=== PATIENT | female | born 2000 | race Hispanic/Latino ===

== ENCOUNTER 2019-04-01 02:41 | Emergency (ER) | payer SELFPAY ==
[2019-04-01] MEDS ORDERED: ACETAMINOPHEN 500 MG TAB ONE (03:43)
[2019-04-01] MEDS ORDERED: IBUPROFEN 400 MG TAB ONE (03:43)
[2019-04-01] MEDS ORDERED: LIDOCAINE 1% MPF 2 ML AMPULE ONE (04:17)
--- NOTE | 2019-04-01 04:28 | EDPHYS ---
Physician Documentation [facility] Name: Mary Donovan Age: 18 yrs Sex: Female : 2000 Arrival Date: 04/01/2019 Time: 02:45 Bed 5 Private MD: ED Physician Ronald Rai HPI: 04/01 04:08 This 18 yrs old Female presents to ER via Ambulatory with complaints of Finger wa Pain. 04:08 The patient or guardian reports pain, swelling, tenderness. The complaints affect the wa right hand and right ring fingernail. Context: The problem was sustained at home, resulted from an unknown cause, c/o painful swelling and tenderness R lateral side of edge of nailbed. . Onset: The symptoms/episode began/occurred 2 day(s) ago. Modifying factors: The symptoms are alleviated by nothing, the symptoms are aggravated by movement, touch. Associated signs and symptoms: The patient has no apparent associated signs or symptoms. Severity of symptoms: At their worst the symptoms were moderate, in the emergency department the symptoms are unchanged. The patient has not experienced similar symptoms in the past. The patient has not recently seen a physician. Historical: - Allergies: 02:45 No Known Allergies; jb4 - Home Meds: 02:45 None [Active]; jb4 - PMHx: 02:45 None; jb4 - PSHx: 02:45 None; jb4 - Immunization history:: Adult Immunizations not up to date. - Social history:: Smoking status: Patient/guardian denies using tobacco, Patient/guardian denies using alcohol. - Ebola Screening: : No symptoms or risks identified at this time. - Family history:: not pertinent. - Hospitalizations: : No recent hospitalization is reported. ROS: 04:11 Constitutional: Negative for fever, chills, and weight loss, Eyes: Negative for injury, wa pain, redness, and discharge, ENT: Negative for injury, pain, and discharge, Neck: Negative for injury, pain, and swelling, Cardiovascular: Negative for chest pain, palpitations, and edema, Respiratory: Negative for shortness of breath, cough, wheezing, and pleuritic chest pain, Abdomen/GI: Negative for abdominal pain, nausea, vomiting, diarrhea, and constipation, Back: Negative for injury and pain, : Negative for injury, bleeding, discharge, and swelling, Neuro: Negative for headache, weakness, numbness, tingling, and seizure. 04:11 MS/extremity: Positive for pain, swelling, tenderness, of the right ring fingernail. 04:11 All other systems are negative. Exam: 04:11 Constitutional: This is a well developed, well nourished patient who is awake, alert, wa and in no acute distress. Head/Face: Normocephalic, atraumatic. Eyes: Pupils equal round and reactive to light, extra-ocular motions intact. Lids and lashes normal. Conjunctiva and sclera are non-icteric and not injected. Cornea within normal limits. Periorbital areas with no swelling, redness, or edema. ENT: Nares patent. No nasal discharge, no septal abnormalities noted. Tympanic membranes are normal and external auditory canals are clear. Oropharynx with no redness, swelling, or masses, exudates, or evidence of obstruction, uvula midline. Mucous membranes moist. Neck: Trachea midline, no thyromegaly or masses palpated, and no cervical lymphadenopathy. Supple, full range of motion without nuchal rigidity, or vertebral point tenderness. No Meningismus. Chest/axilla: Normal chest wall appearance and motion. Nontender with no deformity. No lesions are appreciated. Cardiovascular: Regular rate and rhythm with a normal S1 and S2. No gallops, murmurs, or rubs. Normal PMI, no JVD. No pulse deficits. Respiratory: Lungs have equal breath sounds bilaterally, clear to auscultation and percussion. No rales, rhonchi or wheezes noted. No increased work of breathing, no retractions or nasal flaring. Abdomen/GI: Soft, non-tender, with normal bowel sounds. No distension or tympany. No guarding or rebound. No evidence of tenderness throughout. Back: No spinal tenderness. No costovertebral tenderness. Full range of motion. Neuro: Awake and alert, GCS 15, oriented to person, place, time, and situation. Cranial nerves II-XII grossly intact. Motor strength 5/5 in all extremities. Sensory grossly intact. Cerebellar exam normal. Normal gait. Psych: Awake, alert, with orientation to person, place and time. Behavior, mood, and affect are within normal limits. 04:11 Skin: lesion(s), noted, and can be described as erythematous, tender, located on the right ring fingernail. 04:12 Musculoskeletal/extremity: Extremities: grossly normal except: noted in the right ring wa fingernail: pain, swelling, tenderness. Vital Signs: 02:45 BP 122 / 86; Pulse 79; Resp 16; Temp 97.6; Pulse Ox 99% on R/A; Weight 65.77 kg (R); jb4 Height 4 ft. 9 in. (144.78 cm) (R); Pain 10/10; 04:40 BP 105 / 72; Pulse 80; Resp 16; Pulse Ox 99% on R/A; jb4 02:45 Body Mass Index 31.38 (65.77 kg, 144.78 cm) 4 Procedures: 04:24 I \T\ D: Incision and drainage was performed for an abscess of the right right ring wa fingernail Prepped with Betadine, Anesthetized with 1 ml's 1% Lidocaine. Incised with #11 blade. Drained small amount purulent fluid. Dressing: sterile 4x4 gauze, the patient tolerated the procedure well. MDM: 03:15 Patient medically screened. nc 04:13 Differential diagnosis: paronychia. pain control. will attempt I\T\D. Data reviewed: nc vital signs, nurses notes. 04:25 Response to treatment: the patient's symptoms have markedly improved after treatment. nc 04/01 03:20 Order name: I\T\D Setup; Complete Time: 03:57 nc Administered Medications: 03:57 Drug: Motrin 400 mg Route: PO; [facility] 04:46 Follow up: Response: No adverse reaction; Pain is decreased [facility] 03:57 Drug: Tylenol 1000 mg Route: PO; jb4 04:46 Follow up: Response: No adverse reaction; Pain is decreased [facility] Disposition: 04/01/19 04:26 Discharged to Home. Impression: Right ring finger paronychia. - Condition is Stable. - Discharge Instructions: Paronychia, [id number]. - Prescriptions for Augmentin 875- 125 mg Oral Tablet - take 1 tablet by ORAL route every 12 hours for 5 days; 10 tablet. Ibuprofen 600 mg Oral Tablet - take 1 tablet by ORAL route every 8 hours As needed take with food; 20 tablet. - Work release form, Family Work Release, Medication Reconciliation Form, Thank You Letter, Antibiotic Education, Prescription Opioid Use form. - Follow up: Private Physician; When: 2 - 3 days; Reason: Re-evaluation by your physician. - Problem is new. - Symptoms have improved. Signatures: Tang Damian RN RN jb4 Ronald Rai MD MD wa Corrections: (The following items were deleted from the chart) 04:46 04:26 04/01/2019 04:26 Discharged to Home. Impression: Right ring finger paronychia. jb4 Condition is Stable. Forms are Medication Reconciliation Form, Thank You Letter, Antibiotic Education, Prescription Opioid Use. Follow up: Private Physician; When: 2 - 3 days; Reason: Re-evaluation by your physician. Problem is new. Symptoms have improved. wa
--- NOTE | 2019-04-01 04:28 | ER ---
Nurse's Notes [facility] Name: Mary Donovan Age: 18 yrs Sex: Female : 2000 Arrival Date: 04/01/2019 Time: 02:45 Bed 5 Private MD: Diagnosis: Right ring finger paronychia Presentation: 04/01 02:45 Presenting complaint: states: She has an ingrown finger nail that she noticed jb4 yesterday. 02:45 Transition of care: patient was not received from another setting of care. Onset of jb4 symptoms was March 31, 2019. Risk Assessment: Do you want to hurt yourself or someone else? Patient reports no desire to harm self or others. Initial Sepsis Screen: Does the patient meet any 2 criteria? No. Patient's initial sepsis screen is negative. Does the patient have a suspected source of infection? No. Patient's initial sepsis screen is negative. Care prior to arrival: None. 02:45 Method Of Arrival: Ambulatory jb4 02:45 Acuity: JOSE 5 jb4 Historical: - Allergies: 02:45 No Known Allergies; jb4 - Home Meds: 02:45 None [Active]; jb4 - PMHx: 02:45 None; jb4 - PSHx: 02:45 None; jb4 - Immunization history:: Adult Immunizations not up to date. - Social history:: Smoking status: Patient/guardian denies using tobacco, Patient/guardian denies using alcohol. - Ebola Screening: : No symptoms or risks identified at this time. - Family history:: not pertinent. - Hospitalizations: : No recent hospitalization is reported. Screenin:59 Abuse screen: Denies threats or abuse. Nutritional screening: No deficits noted. jb4 Tuberculosis screening: No symptoms or risk factors identified. Fall Risk None identified. Assessment: 02:59 General: Appears in no apparent distress. uncomfortable, Behavior is calm, cooperative, jb4 appropriate for age. Pain: Complains of pain in right ring fingernail Pain does not radiate. Pain currently is 10 out of 10 on a pain scale. Neuro: Level of Consciousness is awake, alert, obeys commands, Oriented to person, place, time, situation. Cardiovascular: Patient's skin is warm and dry. Respiratory: Airway is patent Respiratory effort is even, unlabored, Respiratory pattern is regular, symmetrical. GI: No deficits noted. No signs and/or symptoms were reported involving the gastrointestinal system. : No deficits noted. No signs and/or symptoms were reported regarding the genitourinary system. EENT: No deficits noted. No signs and/or symptoms were reported regarding the EENT system. Derm: Skin is intact, Skin is pink, warm \T\ dry. Musculoskeletal: Circulation, motion, and sensation intact. Range of motion: intact in all extremities. 04:40 Reassessment: Patient appears in no apparent distress at this time. Patient and/or jb4 family updated on plan of care and expected duration. Pain level reassessed. Patient is alert, oriented x 3, equal unlabored respirations, skin warm/dry/pink. Vital Signs: 02:45 BP 122 / 86; Pulse 79; Resp 16; Temp 97.6; Pulse Ox 99% on R/A; Weight 65.77 kg (R); jb4 Height 4 ft. 9 in. (144.78 cm) (R); Pain 10/10; 04:40 BP 105 / 72; Pulse 80; Resp 16; Pulse Ox 99% on R/A; jb4 02:45 Body Mass Index 31.38 (65.77 kg, 144.78 cm) jb4 ED Course: 02:45 Patient arrived in ED. ds1 02:45 Tang Damian, RN is Primary Nurse. jb4 02:45 Arm band placed on right wrist. jb4 02:56 Triage completed. jb4 02:59 Patient has correct armband on for positive identification. Bed in low position. Call jb4 light in reach. Side rails up X 1. Pulse ox on. NIBP on. 03:15 Ronald Rai MD is Attending Physician. wa 04:40 Assist provider with I \T\ D: of an abscess on right Ring finger. Set up I\T\D tray. jeffrey 4 Performed by Ronald Rai MD Dressing with Neosporin and. Patient did not have IV access during this emergency room visit. Administered Medications: 03:57 Drug: Motrin 400 mg Route: PO; jb4 04:46 Follow up: Response: No adverse reaction; Pain is decreased jb4 03:57 Drug: Tylenol 1000 mg Route: PO; jb4 04:46 Follow up: Response: No adverse reaction; Pain is decreased jb4 Outcome: 04:26 Discharge ordered by . jake 04:40 Discharged to home ambulatory, with family. jb4 04:40 Condition: stable 04:40 Discharge instructions given to patient, family, Instructed on discharge instructions, follow up and referral plans. medication usage, Demonstrated understanding of instructions, follow-up care, medications, Prescriptions given X 2. 04:46 Patient left the ED. jb4 Signatures: Kimberly Obregon ds1 Tang Damian RN RN jb4 Ronald Rai MD MD wa
[2019-04-01 05:00] VITALS: TEMP 97.6; O2SAT 99
[2019-04-01 05:02] VITALS: BP 105/72
== END 2019-04-01 04:46 | disposition home or self-care (01) ==
LOC: ER 02:41
PROC: 0J9J0ZZ Drainage of Right Hand Subcutaneous Tissue and Fascia, Open Approach (ICD-10-PCS; principal; 2019-04-01)
DX: L03.011 Cellulitis of right finger (principal)
CPT/HCPCS: 99284; J2001

== ENCOUNTER 2019-07-31 16:17 | Emergency (ER) | payer SELFPAY ==
--- OUTSIDE RECORDS SUMMARY | 2019-07-31 16:49 | XMS REPORT ---
:2000 [facility] Address [address] [place] [address] Dr. Huddleston [address] [place] [id number] Care Team Providers Name Role Phone Unavailable Unavailable Unavailable Problems This patient has no known problems. Allergies, Adverse Reactions, Alerts This patient has no known allergies or adverse reactions. Medications This patient has no known medications.
[2019-07-31] MEDS ORDERED: ONDANSETRON 4 MG/2 ML VIAL ONE (16:51)
[2019-07-31] MEDS ORDERED: NA CHLORIDE 0.9% 1,000 ML ONE (16:51)
[2019-07-31 17:32] LABS: Absolute Lymphocytes (CBC) 3.9 K/uL (0.7-4.9); Basophils % 0.5 % (0-1.3); Hematocrit 39.1 % (36.0-45.0); Lymphocytes % 32.9 % (15.3-44.8); MPV 7.4 fL (7.6-11.3); RBC Red Blood Cell Count 4.46 M/uL (3.86-4.86)
[2019-07-31 17:42] LABS: BUN Blood Urea Nitrogen 11 mg/dL (7-18); Bicarbonate 28 mmol/L (21-32); Glucose Level 123 mg/dL (74-106); Potassium 4.1 mmol/L (3.5-5.1); Sodium Level 138 mmol/L (136-145)
[2019-07-31] MEDS ORDERED: MECLIZINE HCL 12.5 MG TAB ONE (17:55)
--- NOTE | 2019-07-31 17:59 | EDPHYS ---
Physician Documentation [facility] Name: Mary Donovan Age: 18 yrs Sex: Female : 2000 Arrival Date: 07/31/2019 Time: 16:19 Bed 19 Private MD: ED Physician Kris Saini HPI: 07/31 16:48 This 18 yrs old Female presents to ER via Ambulatory with complaints of kb Dizziness, Nausea. 16:48 The patient or guardian reports flu symptoms, low-grade fever, myalgias. Onset: The kb symptoms/episode began/occurred 2 week(s) ago. Severity of symptoms: At their worst the symptoms were moderate, in the emergency department the symptoms are unchanged. Modifying factors: The symptoms are alleviated by nothing, the symptoms are aggravated by nothing. Associated signs and symptoms: Pertinent positives: fever, nausea. The patient has not experienced similar symptoms in the past. The patient has not recently seen a physician. Historical: - Allergies: 16:34 No Known Allergies; sv - PMHx: 16:34 None; sv - PSHx: 16:34 None; sv ROS: 16:47 ENT: Negative for injury, pain, and discharge, Neck: Negative for injury, pain, and kb swelling, Cardiovascular: Negative for chest pain, palpitations, and edema, Respiratory: Negative for shortness of breath, cough, wheezing, and pleuritic chest pain, Abdomen/GI: Negative for abdominal pain, nausea, vomiting, diarrhea, and constipation, Back: Negative for injury and pain, MS/Extremity: Negative for injury and deformity, Skin: Negative for injury, rash, and discoloration. 16:47 Constitutional: Positive for body aches, chills, fatigue, fever, malaise. 16:47 Neuro: Positive for dizziness, headache. Exam: 16:48 Constitutional: This is a well developed, well nourished patient who is awake, alert, kb and in no acute distress. Head/Face: Normocephalic, atraumatic. ENT: Nares patent. No nasal discharge, no septal abnormalities noted. Tympanic membranes are normal and external auditory canals are clear. Oropharynx with no redness, swelling, or masses, exudates, or evidence of obstruction, uvula midline. Mucous membranes moist. Neck: Trachea midline, no thyromegaly or masses palpated, and no cervical lymphadenopathy. Supple, full range of motion without nuchal rigidity, or vertebral point tenderness. No Meningismus. Chest/axilla: Normal chest wall appearance and motion. Nontender with no deformity. No lesions are appreciated. Cardiovascular: Regular rate and rhythm with a normal S1 and S2. No gallops, murmurs, or rubs. Normal PMI, no JVD. No pulse deficits. Respiratory: Lungs have equal breath sounds bilaterally, clear to auscultation and percussion. No rales, rhonchi or wheezes noted. No increased work of breathing, no retractions or nasal flaring. Abdomen/GI: Soft, non-tender, with normal bowel sounds. No distension or tympany. No guarding or rebound. No evidence of tenderness throughout. Skin: Warm, dry with normal turgor. Normal color with no rashes, no lesions, and no evidence of cellulitis. MS/ Extremity: Pulses equal, no cyanosis. Neurovascular intact. Full, normal range of motion. Neuro: Awake and alert, GCS 15, oriented to person, place, time, and situation. Cranial nerves II-XII grossly intact. Motor strength 5/5 in all extremities. Sensory grossly intact. Cerebellar exam normal. Normal gait. Vital Signs: 16:34 Pulse 93; Resp 16; Temp 98.5; Pulse Ox 100% ; Weight 63.5 kg; Height 5 ft. 0 in. sv (152.40 cm); 16:45 BP 104 / 64 RA Supine (auto/reg); Pulse 62 MON; sg 16:50 BP 111 / 86 RA Sitting (auto/reg); Pulse 70; sg 16:55 BP 114 / 75 Standing; Pulse 75 MON; sg 16:34 Body Mass Index 27.34 (63.50 kg, 152.40 cm) sv MDM: 16:35 Patient medically screened. kb 16:47 Data reviewed: vital signs, nurses notes. Data interpreted: Pulse oximetry: on room air kb is 100 %. Interpretation: normal. Counseling: I had a detailed discussion with the patient and/or guardian regarding: the historical points, exam findings, and any diagnostic results supporting the discharge/admit diagnosis, lab results, the need for outpatient follow up, a family practitioner, to return to the emergency department if symptoms worsen or persist or if there are any questions or concerns that arise at home. 07/31 16:45 Order name: CBC with Diff; Complete Time: 17:39 kb 07/31 16:45 Order name: Basic Metabolic Panel; Complete Time: 17:42 kb 07/31 16:48 Order name: [place] Screen Profile; Complete Time: 17:58 kb 07/31 17:34 Order name: Urine Dipstick--Ancillary (enter results) bd 07/31 17:34 Order name: Urine --Ancillary (enter results) bd 07/31 16:35 Order name: Orthostatics; Complete Time: 17:06 kb 07/31 16:35 Order name: Urine Dipstick-Ancillary (obtain specimen); Complete Time: 16:47 kb 07/31 16:45 Order name: IV Start; Complete Time: 16:47 kb Administered Medications: 17:26 Drug: NS 0.9% 1000 ml Route: IV; Rate: 1000 ml; Site: left antecubital; sg 17:26 Drug: Zofran 4 mg Route: IVP; Site: left antecubital; sg 17:55 Drug: Meclizine 25 mg Route: PO; sg Disposition: 08/01 16:32 Co-signature as Attending Physician, Kris Saini MD. rn Disposition: 07/31/19 17:59 Discharged to Home. Impression: Malaise and fatigue. - Condition is Stable. - Discharge Instructions: Fatigue, Weakness, [id number]. - Prescriptions for Meclizine 25 mg Oral Tablet - take 1 tablet by ORAL route every 8 hours As needed; 30 tablet. Zofran 4 mg Oral Tablet - take 1 tablet by ORAL route every 6 hours As needed; 20 tablet. - Medication Reconciliation Form, Thank You Letter, Antibiotic Education, Prescription Opioid Use form. - Work release form (07/31/19 18:41). ca1 - Follow up: Private Physician; When: 2 - 3 days; Reason: Recheck today's complaints, Continuance of care, Re-evaluation by your physician. Follow up: Emergency Department; When: As needed; Reason: Worsening of condition. Signatures: Dispatcher [employer] Nichelle Acevedo, Rossi Mg RN RN Wilbert Hurd RN RN sg Kris Saini MD MD rn Acob, Cindy MACDONALD ca1 Corrections: (The following items were deleted from the chart) 07/31 18:38 17:59 07/31/2019 17:59 Discharged to Home. Impression: Malaise and fatigue. Condition sg is Stable. Discharge Instructions: Fatigue, Weakness, [id number]. Prescriptions for Meclizine 25 mg Oral Tablet - take 1 tablet by ORAL route every 8 hours As needed; 30 tablet, Zofran 4 mg Oral Tablet - take 1 tablet by ORAL route every 6 hours As needed; 20 tablet. and Forms are Medication Reconciliation Form, Thank You Letter, Antibiotic Education, Prescription Opioid Use. Follow up: Private Physician; When: 2 - 3 days; Reason: Recheck today's complaints, Continuance of care, Re-evaluation by your physician. Follow up: Emergency Department; When: As needed; Reason: Worsening of condition. kb
--- NOTE | 2019-07-31 17:59 | ER ---
Nurse's Notes [facility] Name: Mary Donovan Age: 18 yrs Sex: Female : 2000 Arrival Date: 07/31/2019 Time: 16:19 Bed 19 Private MD: Diagnosis: Malaise and fatigue Presentation: 07/31 16:32 Presenting complaint: Patient states: headache, dizziness, nausea x 2 weeks. Transition sv of care: patient was not received from another setting of care. Onset of symptoms was July 2019. Care prior to arrival: None. 16:32 Method Of Arrival: Ambulatory sv 16:32 Acuity: JOSE 3 sv Historical: - Allergies: 16:34 No Known Allergies; sv - PMHx: 16:34 None; sv - PSHx: 16:34 None; sv Screenin:40 Abuse screen: Denies threats or abuse. Denies injuries from another. Nutritional sg screening: No deficits noted. Tuberculosis screening: No symptoms or risk factors identified. Never had TB. Fall Risk None identified. Assessment: 16:40 General: Appears in no apparent distress. well groomed, well developed, well nourished, sg Behavior is calm, cooperative, appropriate for age. Pain: Denies pain. Neuro: Level of Consciousness is awake, alert, obeys commands, Oriented to person, place, time, Manager Area are equal bilaterally Moves all extremities. Gait is steady, Speech is normal. Cardiovascular: Capillary refill is brisk in bilateral fingers Patient's skin is warm and dry. Chest pain is denied. Respiratory: Airway is patent Respiratory effort is even, unlabored, Respiratory pattern is regular, symmetrical. GI: Abdomen is round non-distended, Reports normal bowel habits, tolerance of fluids, tolerance of food. : No signs and/or symptoms were reported regarding the genitourinary system. EENT: No signs and/or symptoms were reported regarding the EENT system. Derm: Skin is pink, warm \T\ dry. Musculoskeletal: Circulation, motion, and sensation intact. Range of motion: intact in all extremities. Vital Signs: 16:34 Pulse 93; Resp 16; Temp 98.5; Pulse Ox 100% ; Weight 63.5 kg; Height 5 ft. 0 in. sv (152.40 cm); 16:45 BP 104 / 64 RA Supine (auto/reg); Pulse 62 MON; sg 16:50 BP 111 / 86 RA Sitting (auto/reg); Pulse 70; sg 16:55 BP 114 / 75 Standing; Pulse 75 MON; sg 16:34 Body Mass Index 27.34 (63.50 kg, 152.40 cm) sv ED Course: 16:19 Patient arrived in ED. rg4 16:25 Nichelle Lizama F[facility]-C [facility]. kb 16:25 Kris Saini MD is Attending Physician. kb 16:32 Arm band placed on. sv 16:33 Triage completed. sv 17:04 Wilbert Hurd, RN is Primary Nurse. sg Administered Medications: 17:26 Drug: NS 0.9% 1000 ml Route: IV; Rate: 1000 ml; Site: left antecubital; sg 17:26 Drug: Zofran 4 mg Route: IVP; Site: left antecubital; sg 17:55 Drug: Meclizine 25 mg Route: PO; sg Outcome: 17:59 Discharge ordered by MD. kb 18:38 Patient left the ED. sg Signatures: Nichelle Lizama FNP-C FNP-Ckb Verde, Stephanie, RN RN Wilbert Hurd, RN RN Montse Hedrick rg4 Corrections: (The following items were deleted from the chart) 17:27 17:26 NS 0.9% 1000 ml IV at 1000 ml in right antecubital sg sg
[2019-07-31 20:32] LABS: Urine Blood 1+ (NEG); Urine Glucose NEGATIVE (NEG); Urine Protein NEGATIVE (NEG); Urine Specific Gravity 1.025 (1.005-1.030); Urine pH 6.5 (5.0-7.0)
[2019-08-01 07:25] VITALS: TEMP 98.5; O2SAT 100
[2019-08-01 07:28] VITALS: BP 114/75
== END 2019-07-31 18:38 | disposition home or self-care (01) ==
LOC: ER 16:17
DX: R53.81 Other malaise (principal); R53.83 Other fatigue
CPT/HCPCS: 36415; 80048; 81003; 81025; 85025; 86308; 96374; 99283; J2405; J7030; J8597

== ENCOUNTER 2019-11-23 13:29 | Emergency (ER) | payer SELFPAY ==
--- OUTSIDE RECORDS SUMMARY | 2019-11-23 13:32 | XMS REPORT ---
:[address] [facility] t Address [address] [place] [address] Dr. H[address] [place] [id number] Care Team Providers Name Role Phone Unavailable Unavailable Unavailable Problems This patient has no known problems. Allergies, Adverse Reactions, Alerts This patient has no known allergies or adverse reactions. Medications This patient has no known medications. Procedures This patient has no known procedures. Results This patient has no known results.
--- NOTE | 2019-11-23 14:31 | ER ---
Nurse's Notes [facility] Name: Mary Donovan Age: 19 yrs Sex: Female : 2000 Arrival Date: 11/23/2019 Time: 13:32 Bed 20 Private MD: Diagnosis: Pain in left arm Presentation: 11/22 13:42 Chief complaint: Patient states: control implant to L upper arm that seems to be ss causing discomfort during the night x 1 month. Pt denies pain at this moment. Coronavirus screen: Proceed with normal triage. Patient denies a cough. Patient denies shortness of breath or difficulty breathing. Patient denies measured and/or subjective temperature greater than 100.4F prior to today's visit. Patient denies travel on a cruise ship or to a country the [facility] currently lists as an affected area. Patient denies contact with known and/or suspected case of COVID-19. Ebola Screen: Patient denies exposure to infectious person. Patient denies travel to an Ebola-affected area in the 21 days before illness onset. Initial Sepsis Screen: Does the patient meet any 2 criteria? No. Patient's initial sepsis screen is negative. Does the patient have a suspected source of infection? No. Patient's initial sepsis screen is negative. Risk Assessment: Do you want to hurt yourself or someone else? Patient reports no desire to harm self or others. Onset of symptoms was October 2019. 13:42 Method Of Arrival: Ambulatory ss 13:42 Acuity: JOSE 5 ss Historical: - Allergies: 13:45 No Known Allergies; ss - Home Meds: 13:45 None [Active]; ss - PMHx: 13:45 None; ss - PSHx: 13:45 None; ss - Immunization history:: Adult Immunizations up to date. - Social history:: Smoking status: Patient denies any tobacco usage or history of. Patient/guardian denies using alcohol, street drugs, The patient lives with family. - Family history:: not pertinent. Screenin:45 Abuse screen: Denies threats or abuse. Denies injuries from another. Nutritional ss screening: No deficits noted. Tuberculosis screening: Never had TB. Fall Risk None identified. Assessment: 13:45 General: Appears in no apparent distress. comfortable, Behavior is calm, cooperative, ss Denies fever, feeling ill, fatigue, chills. Pain: Complains of pain in left bicep Pain currently is 0 out of 10 on a pain scale. Is episodic. Pain: Aggravated by carrying objects. Seems to only hurt at night. Neuro: Level of Consciousness is awake, alert, obeys commands. Cardiovascular: Capillary refill < 3 seconds is brisk in bilateral fingers. Respiratory: Airway is patent Respiratory effort is even, unlabored, Respiratory pattern is regular, symmetrical. GI: No signs and/or symptoms were reported involving the gastrointestinal system. EENT: Oral mucosa is moist. Derm: Skin is intact, is healthy with good turgor, Skin is moist, Skin is pink, warm \T\ dry. normal. Musculoskeletal: Circulation, motion, and sensation intact. Range of motion: intact in all extremities, Swelling absent. Vital Signs: 13:42 BP 115 / 66; Pulse 86; Resp 16; Temp 98.1(TE); Pulse Ox 99% on R/A; Pain 0/10; ss ED Course: 13:32 Patient arrived in ED. bp1 13:44 Triage completed. ss 13:45 Arm band placed on right wrist. ss 13:45 Patient has correct armband on for positive identification. Bed in low position. Call ss light in reach. 13:53 Becki Aly MD is Attending Physician. ma2 14:30 Price Zeng MD is Referral Physician. ma2 14:45 Katerina Ta RN is Primary Nurse. 14:45 No provider procedures requiring assistance completed. Patient did not have IV access ss during this emergency room visit. Administered Medications: No medications were administered Outcome: 14:31 Discharge ordered by . ma2 14:45 Discharged to home ambulatory. ss 14:45 Condition: good 14:45 Discharge instructions given to patient, Instructed on discharge instructions, follow up and referral plans. Demonstrated understanding of instructions, follow-up care. 14:45 Patient left the ED. ss Signatures: Katerina Ta RN RN Becki Aly MD MD ma2 [place], Brittany bp1
--- NOTE | 2019-11-23 14:31 | EDPHYS ---
Physician Documentation [facility] Name: Mary Donoavn Age: 19 yrs Sex: Female : 2000 Arrival Date: 11/23/2019 Time: 13:32 Bed 20 Private MD: ED Physician Becki Aly HPI: 11/22 14:28 This 19 yrs old Female presents to ER via Ambulatory with complaints of ma2 control implant problem. 14:28 Onset: The symptoms/episode began/occurred gradually, 1 week(s) ago. Associated signs ma2 and symptoms: Pertinent negatives: nausea and vomiting, blood in stools, constipation, dysuria. pain i left upper arm for 2 years. Historical: - Allergies: 13:45 No Known Allergies; ss - Home Meds: 13:45 None [Active]; ss - PMHx: 13:45 None; ss - PSHx: 13:45 None; ss - Immunization history:: Adult Immunizations up to date. - Social history:: Smoking status: Patient denies any tobacco usage or history of. Patient/guardian denies using alcohol, street drugs, The patient lives with family. - Family history:: not pertinent. ROS: 14:28 Constitutional: Negative for fever, chills, and weight loss. ma2 14:28 All other systems are negative. Exam: 14:28 Constitutional: This is a well developed, well nourished patient who is awake, alert, ma2 and in no acute distress. Chest/axilla: Normal chest wall appearance and motion. Nontender with no deformity. No lesions are appreciated. Cardiovascular: Regular rate and rhythm with a normal S1 and S2. No gallops, murmurs, or rubs. Normal PMI, no JVD. No pulse deficits. Respiratory: Lungs have equal breath sounds bilaterally, clear to auscultation and percussion. No rales, rhonchi or wheezes noted. No increased work of breathing, no retractions or nasal flaring. Abdomen/GI: Soft, non-tender, with normal bowel sounds. No distension or tympany. No guarding or rebound. No evidence of tenderness throughout. Skin: Warm, dry with normal turgor. Normal color with no rashes, no lesions, and no evidence of cellulitis. MS/ Extremity: Pulses equal, no cyanosis. Neurovascular intact. Full, normal range of motion. Neuro: Awake and alert, GCS 15, oriented to person, place, time, and situation. Cranial nerves II-XII grossly intact. Motor strength 5/5 in all extremities. Sensory grossly intact. Cerebellar exam normal. Normal gait. Vital Signs: 13:42 BP 115 / 66; Pulse 86; Resp 16; Temp 98.1(TE); Pulse Ox 99% on R/A; Pain 0/10; ss MDM: 14:08 Patient medically screened. ma2 14:28 Differential diagnosis: local irritation vs abrasion vs contusion vs arm pain. Data ma2 reviewed: vital signs, nurses notes. Counseling: I had a detailed discussion with the patient and/or guardian regarding: the historical points, exam findings, and any diagnostic results supporting the discharge/admit diagnosis, the presence of at least one elevated blood pressure reading (>120/80) during this emergency department visit, the need for outpatient follow up. Response to treatment: the patient's symptoms have markedly improved after treatment. Administered Medications: No medications were administered Disposition: 11/23/19 14:31 Discharged to Home. Impression: Pain in left arm. - Condition is Stable. - Discharge Instructions: Musculoskeletal Pain. - Medication Reconciliation Form, Thank You Letter, Antibiotic Education, Prescription Opioid Use form. - Follow up: Private Physician; When: Tomorrow; Reason: Continuance of care. Follow up: Price Zeng MD; When: Tomorrow; Reason: Continuance of care. Signatures: Katerina Ta RN RN ss Alzahri, Mohammad, MD MD ma2 Corrections: (The following items were deleted from the chart) 14:45 14:31 11/23/2019 14:31 Discharged to Home. Impression: Pain in left arm. Condition is ss Stable. Forms are Medication Reconciliation Form, Thank You Letter, Antibiotic Education, Prescription Opioid Use. Follow up: Private Physician; When: Tomorrow; Reason: Continuance of care. Follow up: Price Zeng; When: Tomorrow; Reason: Continuance of care. ma2
== END 2019-11-23 14:45 | disposition home or self-care (01) ==
LOC: ER 13:29
DX: M79.622 Pain in left upper arm (principal)
CPT/HCPCS: 99281

== ENCOUNTER 2020-05-04 00:19 | Emergency (ER) | payer SELFPAY ==
[2020-05-04] MEDS ORDERED: ONDANSETRON 4 MG/2 ML VIAL ONE (00:54)
[2020-05-04] MEDS ORDERED: MORPHINE 2 MG/ML SYR ONE (00:54)
[2020-05-04] MEDS ORDERED: NA CHLORIDE 0.9% 1,000 ML ONE (00:54)
[2020-05-04 01:18] LABS: Absolute Lymphocytes (CBC) 3.8 K/uL (0.7-4.9); Basophils % 0.9 % (0-1.3); Hematocrit 37.1 % (36.0-45.0); Lymphocytes % 28.9 % (15.3-44.8); MPV 7.6 fL (7.6-11.3); RBC Red Blood Cell Count 4.25 M/uL (3.86-4.86)
[2020-05-04 01:33] LABS: ALT/SGPT 30 U/L (12-78); AST/SGOT 16 U/L (15-37); Albumin 3.7 g/dL (3.4-5.0); Alkaline Phosphatase 144 U/L (45-117); BUN Blood Urea Nitrogen 12 mg/dL (7-18); Bicarbonate 27 mmol/L (21-32); Bilirubin Direct < 0.1 mg/dL (0-0.2); Bilirubin Total 0.4 mg/dL (0.2-1.0); Glucose Level 107 mg/dL (74-106); Lipase 91 U/L (73-393); Potassium 3.5 mmol/L (3.5-5.1); Protein, Total 7.5 g/dL (6.4-8.2); Sodium Level 140 mmol/L (136-145)
[2020-05-04] MEDS ORDERED: CIPROFLOXACIN 400mg IV 400 MG/200 ML BAG IV ONE (01:44)
[2020-05-04] MEDS ORDERED: METRONIDAZOLE 500mg IVPB 500 MG/100 ML BAG IV ONE (01:44)
[2020-05-04 02:54] LABS: Urine Blood 3+ (NEG); Urine Glucose NEGATIVE (NEG); Urine Protein TRACE (NEG); Urine Specific Gravity 1.025 (1.005-1.030)
[2020-05-04] MEDS ORDERED: MUPIROCIN 2% OINT 22GM TUBE TOP ONE (03:34)
--- NOTE | 2020-05-04 03:37 | ER ---
Nurse's Notes [facility] Name: Mary Donovan Age: 19 yrs Sex: Female : 2000 Arrival Date: 05/04/2020 Time: 00:22 Bed 15 Private MD: Diagnosis: Abdominal tenderness-umbilical abscess, bleeding Presentation: 05/04 00:35 Chief complaint: Patient states: Abdominal pain x 3 days, bleeding from umbilicus that lp1 began 3 hours ago with severe pain; denies fever. Coronavirus screen: Client denies travel out of the [place] in the last 14 days. At this time, the client does not indicate any symptoms associated with coronavirus-19. Ebola Screen: No symptoms or risks identified at this time. Initial Sepsis Screen: Does the patient meet any 2 criteria? No. Patient's initial sepsis screen is negative. Does the patient have a suspected source of infection? No. Patient's initial sepsis screen is negative. Risk Assessment: Do you want to hurt yourself or someone else? Patient reports no desire to harm self or others. Onset of symptoms was May 04, 2020. 00:35 Method Of Arrival: Ambulatory lp1 00:35 Acuity: JOSE 3 lp1 Triage Assessment: 00:35 General: Appears uncomfortable, Behavior is appropriate for age. Pain: Complains of lp1 pain in umbilical area Pain currently is 10 out of 10 on a pain scale. Neuro: Level of Consciousness is awake, alert, obeys commands. GI: Abdomen is round Abdomen is tender to palpation in umbilical area Reports bleeding from umbilicus. Derm: Skin is pink, warm \T\ dry. 00:35 Respiratory: Respiratory effort is even, unlabored. Musculoskeletal: No deficits noted. 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 - Social history:: Smoking status: Patient denies any tobacco usage or history of. - Family history:: not pertinent. Screenin:38 Abuse screen: Denies threats or abuse. Denies injuries from another. Nutritional lp1 screening: No deficits noted. Tuberculosis screening: No symptoms or risk factors identified. Fall Risk None identified. Assessment: 00:40 General: Appears in no apparent distress. uncomfortable, Behavior is calm, cooperative, jb4 appropriate for age. Pain: Complains of pain in abdomen Pain does not radiate. Pain currently is 10 out of 10 on a pain scale. Neuro: Level of Consciousness is awake, alert, obeys commands, Oriented to person, place, time, situation. Cardiovascular: Patient's skin is warm and dry. Respiratory: Airway is patent Respiratory effort is even, unlabored, Respiratory pattern is regular, symmetrical. GI: Abdomen is non-distended, obese, Bowel sounds present X 4 quads. Abd is soft X 4 quads Abd is non tender in right upper quadrant and left upper quadrant Abdomen is tender to palpation in right lower quadrant and left lower quadrant. : No signs and/or symptoms were reported regarding the genitourinary system. EENT: No signs and/or symptoms were reported regarding the EENT system. Derm: Skin is intact, Skin is pink, warm \T\ dry. Musculoskeletal: Circulation, motion, and sensation intact. Range of motion: intact in all extremities. 02:07 Reassessment: Patient appears in no apparent distress at this time. Patient and/or jb4 family updated on plan of care and expected duration. Pain level reassessed. Patient is alert, oriented x 3, equal unlabored respirations, skin warm/dry/pink. Patient states feeling better. 03:30 Reassessment: Patient appears in no apparent distress at this time. Patient and/or jb4 family updated on plan of care and expected duration. Pain level reassessed. Patient is alert, oriented x 3, equal unlabored respirations, skin warm/dry/pink. Vital Signs: 00:35 BP 126 / 91; Pulse 85; Resp 16; Temp 98.9(TE); Pulse Ox 99% on R/A; Weight 83.91 kg lp1 (R); Height 5 ft. 1 in. (154.94 cm); Pain 10/10; 02:00 BP 104 / 68; Pulse 64; Resp 16; Pulse Ox 99% on R/A; jb4 03:30 BP 96 / 62; Pulse 72; Resp 16; Pulse Ox 99% on R/A; jb4 00:35 Body Mass Index 34.96 (83.91 kg, 154.94 cm) lp1 ED Course: 00:22 Patient arrived in ED. ag3 00:29 Chepe Cook MD is Attending Physician. jessica 00:38 Triage completed. lp1 00:38 Arm band placed on. lp1 00:40 Patient has correct armband on for positive identification. lp1 00:50 Inserted saline lock: 20 gauge in left antecubital area, using aseptic technique. Blood lp1 collected. 00:50 Initial lab(s) drawn, by me, sent to lab. lp1 01:17 Tang Damian, RN is Primary Nurse. jb4 03:18 CT Abd/Pelvis - IV Contrast Only In Process Unspecified. EDMS 03:36 Tang Conrad MD is Referral Physician. jessica 03:59 No provider procedures requiring assistance completed. jb4 04:02 IV discontinued, intact, bleeding controlled, No redness/swelling at site. Pressure jb4 dressing applied. Administered Medications: 01:00 Drug: NS 0.9% 1000 ml Route: IV; Rate: 1 bolus; Site: left antecubital; lp1 02:14 Follow up: Response: No adverse reaction; IV Status: Completed infusion; IV Intake: jb4 1000ml 01:00 Drug: morphine 2 mg Route: IVP; Site: left antecubital; lp1 01:30 Follow up: Response: No adverse reaction; Pain is decreased; RASS: Alert and Calm (0) jb4 01:00 Drug: Zofran (Ondansetron) 4 mg Route: IVP; Site: left antecubital; lp1 01:30 Follow up: Response: No adverse reaction jb4 01:30 Drug: Flagyl 500 mg Volume: 100 ml; Route: IVPB; Rate: 200 ml/hr; Infused Over: 30 jb4 mins; Site: left antecubital; 02:00 Follow up: Response: No adverse reaction; IV Status: Completed infusion; IV Intake: jb4 100ml 02:14 Drug: Cipro 400 mg Volume: 200 ml; Route: IVPB; Infused Over: 60 mins; Site: left jb4 antecubital; 04:02 Follow up: Response: No adverse reaction; IV Status: Completed infusion jb4 03:30 Drug: Bactroban Ointment 2 % 1 application Route: Topical; Site: abdomen; jb4 03:54 Drug: [place] (7.5 mg-325 mg) 1 tabs Route: PO; jb4 03:59 Follow up: Response: No adverse reaction jb4 03:54 Drug: Bactrim (160 mg-800 mg (DS) 1 tablet Route: PO; jb4 03:59 Follow up: Response: No adverse reaction jb4 Intake: 02:00 IV: 100ml; Total: 100ml. jb4 02:14 IV: 1000ml; Total: 1100ml. jb4 Outcome: 03:36 Discharge ordered by . jessica 03:59 Discharged to home ambulatory. jb4 03:59 Condition: stable 03:59 Discharge instructions given to patient, Instructed on discharge instructions, follow up and referral plans. medication usage, Demonstrated understanding of instructions, follow-up care, medications, Prescriptions given X 4. 04:02 Patient left the ED. jb4 Signatures: Dispatcher [employer] EDMS Chepe Cook MD MD cha Pena, Laura, RN RN lp1 Tang Damian RN RN jb4 Claudette Edmonds ag3 Corrections: (The following items were deleted from the chart) 02:43 00:40 GI: Abdomen is non-distended, obese, jb4 jb4
--- NOTE | 2020-05-04 03:37 | EDPHYS ---
Physician Documentation [facility] Name: Mary Donovan Age: 19 yrs Sex: Female : 2000 Arrival Date: 05/04/2020 Time: 00:22 Bed 15 Private MD: ED Physician Chepe Cook HPI: 05/04 00:36 This 19 yrs old Female presents to ER via Unassigned with complaints of jessica Abdominal Pain. 00:36 The patient presents with abdominal pain in the periumbilical area. Onset: The jessica symptoms/episode began/occurred 2 day(s) ago. The symptoms do not radiate. Associated signs and symptoms: Pertinent positives: blood and dc from umbilicus. Modifying factors: The symptoms are alleviated by nothing, the symptoms are aggravated by movement, pressure. 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 - Social history:: Smoking status: Patient denies any tobacco usage or history of. - Family history:: not pertinent. ROS: 00:38 Constitutional: Negative for fever, chills, and weight loss, Eyes: Negative for injury, jessica pain, redness, and discharge, ENT: Negative for injury, pain, and discharge, Neck: Negative for injury, pain, and swelling, Cardiovascular: Negative for chest pain, palpitations, and edema, Respiratory: Negative for shortness of breath, cough, wheezing, and pleuritic chest pain, Back: Negative for injury and pain, : Negative for injury, bleeding, discharge, and swelling, MS/Extremity: Negative for injury and deformity, Skin: Negative for injury, rash, and discoloration, Neuro: Negative for headache, weakness, numbness, tingling, and seizure, Psych: Negative for depression, anxiety, suicide ideation, homicidal ideation, and hallucinations, Allergy/Immunology: Negative for hives, rash, and allergies, Endocrine: Negative for neck swelling, polydipsia, polyuria, polyphagia, and marked weight changes, Hematologic/Lymphatic: Negative for swollen nodes, abnormal bleeding, and unusual bruising. 00:38 Abdomen/GI: Positive for abdominal pain, of the umbilical area. Exam: 00:38 Constitutional: This is a well developed, well nourished patient who is awake, alert, jessica and in no acute distress. Head/Face: Normocephalic, atraumatic. Eyes: Pupils equal round and reactive to light, extra-ocular motions intact. Lids and lashes normal. Conjunctiva and sclera are non-icteric and not injected. Cornea within normal limits. Periorbital areas with no swelling, redness, or edema. ENT: Nares patent. No nasal discharge, no septal abnormalities noted. Tympanic membranes are normal and external auditory canals are clear. Oropharynx with no redness, swelling, or masses, exudates, or evidence of obstruction, uvula midline. Mucous membranes moist. Neck: Trachea midline, no thyromegaly or masses palpated, and no cervical lymphadenopathy. Supple, full range of motion without nuchal rigidity, or vertebral point tenderness. No Meningismus. Chest/axilla: Normal chest wall appearance and motion. Nontender with no deformity. No lesions are appreciated. Cardiovascular: Regular rate and rhythm with a normal S1 and S2. No gallops, murmurs, or rubs. Normal PMI, no JVD. No pulse deficits. Respiratory: Lungs have equal breath sounds bilaterally, clear to auscultation and percussion. No rales, rhonchi or wheezes noted. No increased work of breathing, no retractions or nasal flaring. Back: No spinal tenderness. No costovertebral tenderness. Full range of motion. Female : Normal external genitalia. Skin: Warm, dry with normal turgor. Normal color with no rashes, no lesions, and no evidence of cellulitis. MS/ Extremity: Pulses equal, no cyanosis. Neurovascular intact. Full, normal range of motion. Neuro: Awake and alert, GCS 15, oriented to person, place, time, and situation. Cranial nerves II-XII grossly intact. Motor strength 5/5 in all extremities. Sensory grossly intact. Cerebellar exam normal. Normal gait. 00:38 Abdomen/GI: Inspection: abdomen appears normal, Bowel sounds: normal, Palpation: mild abdominal tenderness, in the umbilical area, Liver: no appreciated palpable abnormalities, Hernia: not appreciated. Vital Signs: 00:35 BP 126 / 91; Pulse 85; Resp 16; Temp 98.9(TE); Pulse Ox 99% on R/A; Weight 83.91 kg lp1 (R); Height 5 ft. 1 in. (154.94 cm); Pain 10; 02:00 BP 104 / 68; Pulse 64; Resp 16; Pulse Ox 99% on R/A; jb4 03:30 BP 96 / 62; Pulse 72; Resp 16; Pulse Ox 99% on R/A; jb4 00:35 Body Mass Index 34.96 (83.91 kg, 154.94 cm) lp1 MDM: 00:29 Patient medically screened. jessica 00:39 Differential diagnosis: appendicitis, bowel obstruction, cholecystitis, Cholelithiasis, jessica pancreatitis, Peritonitis, urinary tract infection. Data reviewed: vital signs, nurses notes, lab test result(s), radiologic studies, CT scan. Data interpreted: ekg monitor tech: rate is 85 beats/min, rhythm is regular. Counseling: I had a detailed discussion with the patient and/or guardian regarding: the historical points, exam findings, and any diagnostic results supporting the discharge/admit diagnosis, lab results, radiology results. 05/04 00:35 Order name: Basic Metabolic Panel; Complete Time: :57 [facility] 05/04 00:35 Order name: CBC with Diff; Complete Time: :57 [facility] 05/04 00:35 Order name: Hepatic Function; Complete Time: :57 [facility] 05/04 00:35 Order name: Lipase; Complete Time: :57 [facility] 05/04 02:48 Order name: Urine Dipstick--Ancillary (enter results); Complete Time: 03:07 [facility] 05/04 02:48 Order name: Urine --Ancillary (enter results); Complete Time: 03:07 [facility] 05/04 00:35 Order name: CT Abd/Pelvis - IV Contrast Only [facility] 05/04 00:35 Order name: IV Saline Lock; Complete Time: 01:02 [facility] 05/04 00:35 Order name: Labs collected and sent; Complete Time: 01:02 [facility] 05/04 00:35 Order name: Urine Dipstick-Ancillary (obtain specimen); Complete Time: 02:40 [facility] 05/04 00:35 Order name: Urine Test (obtain specimen); Complete Time: 02:40 [facility] Administered Medications: 01:00 Drug: NS 0.9% 1000 ml Route: IV; Rate: 1 bolus; Site: left antecubital; lp1 02:14 Follow up: Response: No adverse reaction; IV Status: Completed infusion; IV Intake: jb4 1000ml 01:00 Drug: morphine 2 mg Route: IVP; Site: left antecubital; lp1 01:30 Follow up: Response: No adverse reaction; Pain is decreased; RASS: Alert and Calm (0) jb4 01:00 Drug: Zofran (Ondansetron) 4 mg Route: IVP; Site: left antecubital; lp1 01:30 Follow up: Response: No adverse reaction jb4 01:30 Drug: Flagyl 500 mg Volume: 100 ml; Route: IVPB; Rate: 200 ml/hr; Infused Over: 30 jb4 mins; Site: left antecubital; 02:00 Follow up: Response: No adverse reaction; IV Status: Completed infusion; IV Intake: jb4 100ml 02:14 Drug: Cipro 400 mg Volume: 200 ml; Route: IVPB; Infused Over: 60 mins; Site: left jb4 antecubital; 04:02 Follow up: Response: No adverse reaction; IV Status: Completed infusion jb4 03:30 Drug: Bactroban Ointment 2 % 1 application Route: Topical; Site: abdomen; jb4 03:54 Drug: [place] (7.5 mg-325 mg) 1 tabs Route: PO; jb4 03:59 Follow up: Response: No adverse reaction jb4 03:54 Drug: Bactrim (160 mg-800 mg (DS) 1 tablet Route: PO; jb4 03:59 Follow up: Response: No adverse reaction jb Disposition: 05/04/20 03:36 Discharged to Home. Impression: Abdominal tenderness - umbilical abscess, bleeding. - Condition is Stable. - Discharge Instructions: Abdominal Pain, Adult, Abdominal Pain, Adult, [id number], Umbilical Granuloma. - Prescriptions for Bactroban 2 % Topical Ointment - Apply to affected area 1 application by TOPICAL route every 12 hours; 15 gram. Tylenol- Codeine #3 300-30 mg Oral Tablet - take 2 tablets by ORAL route every 6 hours As needed; 20 tablet. Cipro 500 mg Oral Tablet - take 1 tablet by ORAL route every 12 hours for 7 days; 14 tablet. Bactrim DS 800- 160 mg Oral Tablet - take 1 tablet by ORAL route every 12 hours for 10 days; 20 tablet. - Medication Reconciliation Form, Thank You Letter, Antibiotic Education, Prescription Opioid Use form. - Follow up: Private Physician; When: 2 - 3 days; Reason: Recheck today's complaints, Continuance of care, Re-evaluation by your physician. Follow up: Tang Conrad; When: 2 - 3 days; Reason: Recheck today's complaints, Re-evaluation by your physician. - Problem is new. - Symptoms have improved. Signatures: Dispatcher [employer] EDChepe Jesus MD MD cha Pena, Laura, RN RN lp1 Tang Damian RN RN jb4 Corrections: (The following items were deleted from the chart) 04:02 03:36 05/04/2020 03:36 Discharged to Home. Impression: Abdominal tenderness - umbilical jb4 abscess, bleeding. Condition is Stable. Discharge Instructions: Abdominal Pain, Adult, Abdominal Pain, Adult, [id number], Umbilical Granuloma. Prescriptions for Bactroban 2 % Topical Ointment - Apply to affected area 1 application by TOPICAL route every 12 hours; 15 gram, Tylenol-Codeine #3 300-30 mg Oral Tablet - take 2 tablets by ORAL route every 6 hours As needed; 20 tablet, Cipro 500 mg Oral Tablet - take 1 tablet by ORAL route every 12 hours for 7 days; 14 tablet, Bactrim DS 800-160 mg Oral Tablet - take 1 tablet by ORAL route every 12 hours for 10 days; 20 tablet. and Forms are Medication Reconciliation Form, Thank You Letter, Antibiotic Education, Prescription Opioid Use. Follow up: Private Physician; When: 2 - 3 days; Reason: Recheck today's complaints, Continuance of care, Re-evaluation by your physician. Follow up: Tang Conrad; When: 2 - 3 days; Reason: Recheck today's complaints, Re-evaluation by your physician. Problem is new. Symptoms have improved. jessica
[2020-05-04] MEDS ORDERED: HYDROCODONE/APAP 7.5/325 MG TAB ONE (03:55)
[2020-05-04] MEDS ORDERED: SMZ./TMP. 800/160 MG TABLET ONE (03:55)
[2020-05-04 04:10] VITALS: TEMP 98.9; O2SAT 99
[2020-05-04 04:13] VITALS: BP 96/62
--- NOTE | 2020-05-05 10:18 | RAD REPORT ---
EXAM DESCRIPTION: CT - Abdomen Pelvis W Contrast - 05/04/2020 3:18 am CLINICAL HISTORY: The patient is 19 years old and is Female; ABD PAIN TECHNIQUE: Axial computed tomography images of the abdomen and pelvis with intravenous contrast. S agittal and coronal reformatted images were created and reviewed. This CT exam was performed using one or more of the following dose reduction techniques: automated exposure control, adjustment of t he mA and/or kV according to patient size, and/or use of iterative reconstruction technique. COMPARISON: No relevant prior studies available. FINDINGS: LUNG BASES: Unremarkable. No mass. No consolidation. ABDOMEN: LIVER: Unremarkable. No mass. GALLBLADDER AND BILE DUCTS: The gallbladder is contracted. PANCREAS: No ductal dilation. No mass. SPLEEN: Unremarkable. ADRENALS: Unremarkable. No mass. KIDNEYS AND URETERS: Unremarkable. The kidneys enhance symmetrically. No obstructing renal or ur eteral calculus is seen. No hydronephrosis or hydroureter. No perinephric fluid or stranding. STOMACH AND BOWEL: The stomach is distended with food contents. The small bowel is relatively no rmal in caliber. A moderate amount stool is present throughout the colon. There is no mucosal thicken ing or evidence of bowel obstruction. PELVIS: APPENDIX: The appendix is normal in caliber without surrounding inflammation. BLADDER: Unremarkable. No mass. REPRODUCTIVE: A 0.8 cm dominant left ovarian follicular cyst is present. No follow-up imaging is recommended. The uterus and right ovary are normal. ABDOMEN and PELVIS: INTRAPERITONEAL SPACE: Unremarkable. No free air. No significant fluid collection. BONES/JOINTS: No acute fracture. SOFT TISSUES: The soft tissues are normal. VASCULATURE: Unremarkable. No abdominal aortic aneurysm. LYMPH NODES: Unremarkable. No enlarged lymph nodes. IMPRESSION: No acute findings on this contrasted CT of the abdomen and pelvis to explain the patient 's symptoms. Electronically signed by: Mony De Santiago MD 05/04/2020 3:25 AM CDT Due to temporary technical issues with the PACS/Fluency reporting system, reports are being signed by the in house radiologist without review as a courtesy to ensure prompt reporting. The interpreting r adiologist is fully responsible for the content of the report.
== END 2020-05-04 04:02 | disposition home or self-care (01) ==
LOC: ER 00:19
DX: L02.216 Cutaneous abscess of umbilicus (principal)
CPT/HCPCS: 36415; 74177; 80048; 80076; 81003; 81025; 83690; 85025; 96361; 96365; 96367; 96375; 99284; J0744; J2270; J2405; J7030; Q9967

== ENCOUNTER 2020-06-04 19:14 | Emergency (ER) | payer SELFPAY ==
--- OUTSIDE RECORDS SUMMARY | 2020-06-04 19:16 | XMS REPORT | Summary of Care ---
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 Lump on armpit Encounter Details Date Type Department Care Team Description 05/05/2020 Office Visit [facility]- AkinsipeMirzaIsabela Pre gnancy examination EVELINA Masters or test, negative [address] [place] [address] result (Primary Dx) [place], [place] [id number] Allergies No Known Allergiesdocumented as of this encounter (statuses as of 05/05/2020) Medications No known medicationsdocumented as of this encounter (statuses as of 05/05/2020) Active Problems Problem Noted Date Nexplanon removal 12/31/2019 Chlamydia trachomatis infection of lower genitourinary sites 12/24/2019 Vaginal irritation 10/31/2018 Encounter for contraceptive management, unspecified ty pe 04/03/2018 Well woman exam 03/22/2018 Nexplanon insertion 03/22/2018 Screening examination for STD (sexually transmitted di sease) 03/22/2018 Corpus luteum cyst or hematoma 03/22/2018 Pain pelvic 03/22/2018 Overweight (BMI 25.0-29.9) 03/22/2018 documented as of this encounter (statuses as of 05/05/2020) Social History Tobacco Use Types Packs/Day Years Used Date Current Some Day Smoker Cigarettes Smokeless Tobacco: Never Used Comments: on social occassion Alcohol Use Drinks/Week oz/Week Comments Not Currently Sex Assigned at Date Recorded Not on file COVID-19 Exposure Response Date Recorded In the last month, have you been in contact with No / Unsure 05/05/2020 2:32 PM CDT someone who was confirmed or suspected to have Coronavirus / COVID-19? 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 She reports she first noticed it about 1.5 weeks ago. Associated symptoms include discomort on palption. She declines all other associated symptoms on today. Histories OB History Para Term AB Living 0 0 0 0 0 0 SAB TAB Ectopic Multiple Live Births 0 0 0 0 0 Past Medical History: Diagnosis Date Asthma as a child Corpus luteum cyst or hematoma 03/22/2018 Screening examination for STD (sexually transmitted disease) 03/22/2018 Family History Problem Relation Age of Onset No Significant Medical Problems Mother No Significant Medical Problems Father No Significant Medical Problems Sister No Significant Medical Problems Brother No Significant Medical Problems Maternal Aunt No Significant Medical Problems Maternal Uncle No Significant Medical Problems Paternal Aunt No Significant Medical Problems Paternal Uncle Other - see comments Maternal Grandmother thryroid No Significant Medical Problems Maternal Grandfather Diabetes Paternal Grandmother Hypertension Paternal Grandmother Diabetes Paternal Grandfather Hypertension Paternal Grandfather Family Status Relation Name Status Mo Alive Fa Alive Sis Alive Bro Alive MAunt (Not Specified) MUnc (Not Specified) PAunt (Not Specified) PUnc (Not Specified) MGMo Alive MGFa Alive PGMo Alive PGFa Alive No past surgical history on file. Social History Socioeconomic History Marital status: Single Spouse name: Not on file Number of children: Not on file Years of education: Not on file Highest education level: Not on file Occupational History Not on file Social Needs Financial resource strain: Not on file Food insecurity Worry: Not on file Inability: Not on file Transportation needs Medical: Not on file Non-medical: Not on file Tobacco Use Smoking status: Current Some Day Smoker Types: Cigarettes Smokeless tobacco: Never Used Tobacco comment: on social occassion Substance and Sexual Activity Alcohol use: Not Currently Drug use: No Sexual activity: Yes Partners: Male control/protection: Implant Comment: last sexual intercourse 12/20/2019 Lifestyle Physical activity Days per week: Not on file Minutes per session: Not on file Stress: Not on file Relationships Social connections Talks on phone: Not on file Gets together: Not on file Attends jainism service: Not on file Active member of club or organization: Not on file Attends meetings of clubs or organizations: Not on file Relationship status: Not on file Intimate partner violence Fear of current or ex partner: Not on file Emotionally abused: Not on file Physically abused: Not on file Forced sexual activity: Not on file Other Topics Concern Not on file Social History Narrative Patient lives with partner. Sabianism preference Islam. 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 trachomatis Nucleic A* 04/03/2020 Negative N. gonorrhoeae Nucleic A* 04/03/2020 Negative Radiology No new radiology. Allergies Mary has No Known Allergies. Medications Mary currently has no medications in their medication list. Review of Systems Constitutional: Negative. HENT: Negative. Eyes: Negative. Respiratory: Negative. Breasts: Negative. Cardiovascular: Negative. Gastrointestinal: Negative. Genitourinary: Negative. Musculoskeletal: Negative. Skin: Negative. Neurological: Negative. Psychiatric/Behavioral: Negative. Endocrine: Endocrine negative BP 106/67 (BP Location: Right arm, Patient Position: Sitting, BP CUFF SIZE: Adult Medium) | Pulse 79 | Temp 36.3 C (97.4 F) (Oral) | Resp 16 | Ht 5' (1.524 m) | Wt 173 lb (78.5 kg) | LMP 05/03/2020 (Approximate) | BMI 33.79 kg/m Pregravid BMI: Could not be calculated Physical Exam Vitals reviewed. Constitutional: She is oriented to person, place, and time. She appears well- developed and well-nourished. Her body habitus is normal. Cardiovascular: Regular rate and rhythm. No peripheral edema present. Pulmonary/Chest: Normal inspiratory effort. Neuro/Psychiatric: She has a normal mood and affect. She is oriented to person, place, and time. Skin: Skin normal. No lesion, no rash and no ulceration present. Abcess palpated in mid left axilla about the size of pea Lymphadenopathy: Axillary adenopathy present. Assessment/Plan Return to clinic in 2 weeks. follow up on boil Return to clinic in 8 months for WWE or sooner as needed examination or test, negative result (primary encounter diagnosis) Comment: routine Plan: POCT TEST Boil Comment: reports Plan: comfort measures discussed, warm compress x2 daily , antibiotic ontiment, she verbalized understanding This visit did not involve counseling and coordination that comprised more than 50% of the visit time. EVELINA Soto 05/05/2020 2:57 PM documented in this encounter Plan of Treatment Health Maintenance Due Date Last Done Comments PNEUMOCOCCAL 0-64 YEARS 05/23/2020 Postpone d from 10/28/2005 COMBINED SERIES (1 of 1 - (Alter [place] Guidelines) PPSV23) HPV VACCINES (1 - 2-dose 07/05/2020 Postpon ed from 10/28/2010 series) (Alternative Carlos delines) Depression Screening 12/20/2020 12/21/2019 MENINGOCOCCAL B VACCINES (1 12/20/2020 Post poned from 10/28/2009 of 2 - Risk Bexsero 2-dose (Alte [place] Guidelines) series) VARICELLA VACCINES (1 of 2 - 12/20/2020 Pos tponed from 10/28/2000 2-dose childhood series) (Altern ative Guidelines) INFLUENZA VACCINE (#1) 2021 Postponed from 03/11/2020 (Refused) CHLAMYDIA SCREENING 04/03/2021 04/03/2020, 12/21/2019, 03/22/2018 DTaP,Tdap,and Td Vaccines (1 05/05/2021 Pos tponed from 10/28/2018 - Tdap) (Alternative Carlos delines) WELL CARE VISIT: 12-21 YEARS 05/05/2021 05/05/2020 (yearly) MENINGOCOCCAL VACCINE Aged Out No longer eligible based on patient's age to complete this to pic documented as of this encounter Procedures Procedure Name Priority Date/Time Associated Diagnosis Comme nts POCT TEST Routine 05/05/2020 2:40 PM R esults for this CDT examination or test, procedu re are in negative result the results section. documented in this encounter Results POCT TEST (05/05/2020 2:40 PM CDT) Pathologist Sig nature POCT PREG Negative On board controls acceptable Yes with C Line POCT PREG LOT # POCT PREG TEST DATE Specimen Urine - URINE, CLEAN CATCH documented in this encounter Visit Diagnoses Diagnosis examination or test, negative result - Primary documented in this encounter Insurance Payer Benefit Plan Subscriber ID Effective Phone Address Typ e / Group Dates [facility] [id number] 2018-Prese [phone] Medicaid [place] [id number] [place] [address] documented as of this encounter Advance Directives Name Relationship Healthcare Agent Relationship Co mmunication Alyssa Gallagher Mother Health Care Agent [phone] ( Mobile)"
--- OUTSIDE RECORDS SUMMARY | 2020-06-04 19:16 | XMS REPORT | Summary of Care ---
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 Lump on armpit Encounter Details Date Type Department Care Team Description 05/05/2020 Office Visit [facility]- AkinsipeMirzaIsabela Pre gnancy examination EVELINA Masters or test, negative [address] result (Primary Dx) [place], [place] [phone] Allergies No Known Allergiesdocumented as of this [...] Chief complaint: Chief Complaint 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 Hoahaoism preference Alevism. 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 [...] COMBINED SERIES (1 of 1 - (Alter [place] Guidelines) PPSV23) HPV VACCINES (1 - 2-dose [...] Phone Address Typ e / Group Dates [facility] [id number] 2018-Prese [phone] Medicaid [place]OM[place] [id number] [place] [address] documented as of this encounter Advance Directives Name Relationship Healthcare Agent Relationship Co mmunication Alyssa Gallagher Mother Health Care Agent [phone] ( Mobile)"
--- OUTSIDE RECORDS SUMMARY | 2020-06-04 19:16 | XMS REPORT | Summary of Care ---
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 venereal disease [place] (Primary Dx) [place] [address] Allergies No Known Allergiesdocumented as of this encounter (statuses as of 04/03/2020) Medications No known medicationsdocumented as of this encounter (statuses as of 04/03/2020) Active Problems Problem Noted Date Nexplanon removal [...] as of this encounter (statuses as of 04/03/2020) Social History Tobacco Use Types Packs/Day Years Used Date Current Some Day Smoker Cigarettes Smokeless Tobacco: Never Used Comments: on social occassion Alcohol Use Drinks/Week oz/Week Comments Not Currently Sex Assigned at Date Recorded Not on file COVID-19 Exposure Response Date Recorded In the last month, have you been in contact with No / Unsure 04/03/2020 8:41 AM CDT someone who was confirmed or suspected to have Coronavirus / COVID-19? documented as of this encounter Last Filed Vital Signs Not on filedocumented in this encounter Plan of Treatment Name Type Priority Associated Diagnoses Date/Ti me GC & CHLAMYDIA LAB Routine Screening examination for 04/03/2020 8:42 AM CDT AMPLIFIED ASSAY venereal disease Health Maintenance Due Date Last Done Comments PNEUMOCOCCAL 0-64 YEARS 10/28/2005 COMBINED SERIES (1 of 1 - PPSV23) HPV VACCINES (1 - 2-dose 10/28/2010 series) WELL CARE VISIT: 12-21 YEARS 2011 (yearly) DTaP,Tdap,and Td Vaccines (1 10/28/2018 - Tdap) INFLUENZA VACCINE (#1) 2020 CHLAMYDIA SCREENING 12/20/2020 12/21/2019, 03/22/2018 Depression Screening 12/20/2020 12/21/2019 MENINGOCOCCAL B VACCINES (1 12/20/2020 Post poned from 10/28/2009 of 2 - Risk Bexsero 2-dose (Alte rnative Guidelines) series) VARICELLA VACCINES (1 of 2 - 12/20/2020 Pos tponed from 10/28/2000 2-dose childhood series) (Altern ative Guidelines) MENINGOCOCCAL VACCINE Aged Out No longer eligible based on patient's age to complete this to pic documented as of this encounter Results Not on filedocumented in this encounter Visit Diagnoses Diagnosis Screening examination for venereal disea se - Primary documented in this encounter Insurance Payer Benefit Plan Subscriber ID Effective Phone Address Typ e / Group Dates [facility] [place] [facility] [id number] 2018-Lolly [phone] Medicaid WOMEN [address] [place] [address] documented as of this encounter Advance Directives Name Relationship Healthcare Agent Relationship Co mmunication Alyssa Gallagher Mother Health Care Agent [phone] ( Mobile)
--- OUTSIDE RECORDS SUMMARY | 2020-06-04 19:16 | XMS REPORT | Continuity of Care Document ---
:2000 Author Organization [facility] t Address [address] [place] [address] Care Team Providers Name Role Phone Noam Mcgrath Attending Clinician Problems This patient has no known problems. Allergies, Adverse Reactions, Alerts This patient has no known allergies or adverse reactions. Medications This patient has no known medications. Procedures This patient has no known procedures. 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
[2020-06-04] MEDS ORDERED: ONDANSETRON 4 MG/2 ML VIAL ONE (20:12)
[2020-06-04] MEDS ORDERED: FAMOTIDINE 20 MG/2 ML VIAL IV ONE (20:12)
[2020-06-04] MEDS ORDERED: NA CHLORIDE 0.9% 1,000 ML ONE (20:12)
[2020-06-04 20:14] LABS: Absolute Lymphocytes (CBC) 3.4 K/uL (0.7-4.9); Basophils % 0.7 % (0-1.3); Hematocrit 37.7 % (36.0-45.0); Lymphocytes % 22.1 % (15.3-44.8); MPV 7.1 fL (7.6-11.3); RBC Red Blood Cell Count 4.34 M/uL (3.86-4.86)
[2020-06-04 20:36] LABS: ALT/SGPT 46 U/L (12-78); AST/SGOT 24 U/L (15-37); Albumin 3.6 g/dL (3.4-5.0); Alkaline Phosphatase 129 U/L (45-117); BUN Blood Urea Nitrogen 9 mg/dL (7-18); Bicarbonate 26 mmol/L (21-32); Bilirubin Direct 0.1 mg/dL (0-0.2); Bilirubin Total 0.3 mg/dL (0.2-1.0); Glucose Level 127 mg/dL (74-106); Lipase 82 U/L (73-393); Potassium 3.7 mmol/L (3.5-5.1); Protein, Total 7.7 g/dL (6.4-8.2); Sodium Level 140 mmol/L (136-145)
--- NOTE | 2020-06-04 21:31 | ER ---
Nurse's Notes [facility] Name: Mary Donovan Age: 19 yrs Sex: Female : 2000 Arrival Date: 06/04/2020 Time: 19:15 Bed 13 Private MD: Diagnosis: Nausea and vomiting;Dizziness and giddiness Presentation: 06/04 19:25 Chief complaint: Patient states: CONRAD, weak, dizzy, abd pain with N/V, and sore throat ll1 for 3 hours. No fever. LMP: 05/03/20. Coronavirus screen: Client denies travel out of the [place] in the last 14 days. fatigue, nausea, sore throat, vomiting. Client presents with at least one sign or symptom that may indicate coronavirus-19. Standard/surgical mask placed on the client. Ebola Screen: Patient denies travel to an Ebola-affected area in the 21 days before illness onset. Initial Sepsis Screen: Does the patient meet any 2 criteria? HR > 90 bpm. No. Patient's initial sepsis screen is negative. Does the patient have a suspected source of infection? Yes: Acute abdominal pain. Risk Assessment: Do you want to hurt yourself or someone else? Patient reports no desire to harm self or others. Onset of symptoms was June 04, 2020. 19:25 Method Of Arrival: Ambulatory 1 19:25 Acuity: JOSE 3 ll1 IT RISK ADVISOR: 20:05 LMP 05/03/2020 fu Historical: - Allergies: 19:28 No Known Allergies; ll1 - PMHx: 19:28 None; ll1 - PSHx: 19:28 None; ll1 - Immunization history:: Flu vaccine is not up to date. - Social history:: Smoking status: Patient reports the use of cigarette tobacco products, denies chronic smoking, but will smoke occasionally. Screenin:08 Abuse screen: Denies threats or abuse. Nutritional screening: No deficits noted. fu Tuberculosis screening: No symptoms or risk factors identified. Fall Risk None identified. Assessment: 19:38 General: Appears in no apparent distress. Behavior is calm, cooperative, appropriate fu for age, Denies fever. Pain: Complains of pain in headache, abdominal pain Pain does not radiate. Pain currently is 5 out of 10 on a pain scale. Quality of pain is described as aching, Pain began 3 hours ago. 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 Gait is steady, Speech is normal, Facial symmetry appears normal. Cardiovascular: Denies chest pain, shortness of breath. Respiratory: Denies cough, shortness of breath. GI: Abdomen is soft Reports upper abdominal pain, nausea, vomiting. 20:30 Reassessment: Patient and/or family updated on plan of care and expected duration. Pain fu level reassessed. Patient is alert, oriented x 3, equal unlabored respirations, skin warm/dry/pink. 21:05 Reassessment: Patient appears in no apparent distress at this time. Patient and/or fu family updated on plan of care and expected duration. Pain level reassessed. Patient is alert, oriented x 3, equal unlabored respirations, skin warm/dry/pink. Vital Signs: 19:25 BP 126 / 83; Pulse 93; Resp 17; Temp 98.4; Pulse Ox 99% ; Weight 78.93 kg; Height 5 ft. ll1 0 in. (152.40 cm); Pain 8/10; 20:00 BP 107 / 79; Pulse 79; Resp 16; Temp 98.7; Pulse Ox 97% on R/A; Pain 5/10; fu 20:59 BP 104 / 73; Pulse 70; Resp 16; Pulse Ox 99% on R/A; Pain 3/10; fu 19:25 Body Mass Index 33.98 (78.93 kg, 152.40 cm) ll1 ED Course: 19:15 Patient arrived in ED. ds1 19:17 Nichelle Lizama FNP-C is [facility]. kb 19:17 Alex Oliveira MD is Attending Physician. kb 19:28 Triage completed. ll1 19:28 Arm band placed on Patient placed in an exam room, on a stretcher. ll1 19:37 Rory Berman, TORRES is Primary Nurse. fu 20:00 Initial lab(s) drawn, by me, sent to lab. Flu and/or RSV swab sent to lab. Inserted jp3 saline lock: 20 gauge in right antecubital area, using aseptic technique. Blood collected. 20:00 Patient maintains SpO2 saturation greater than 95% on room air. jp3 20:06 Bed in low position. Call light in reach. Verbal reassurance given. Pulse ox on. NIBP jp3 on. 21:10 US Abdomen Limited In Process Unspecified. EDMS 21:41 COVID-19 Sent. fu 21:53 No provider procedures requiring assistance completed. fu 21:53 IV discontinued, bleeding controlled, Pressure dressing applied. fu Administered Medications: 20:03 Drug: NS 0.9% 1000 ml Route: IV; Rate: 1000 ml; Site: right antecubital; fu 21:50 Follow up: Response: No adverse reaction; IV Intake: 1000ml fu 20:05 Drug: Zofran (Ondansetron) 4 mg Route: IVP; Site: right antecubital; fu 20:46 Follow up: Response: No adverse reaction fu 20:08 Drug: Pepcid 20 mg Route: IVP; Site: right antecubital; fu 21:08 Follow up: Response: No adverse reaction fu Intake: 21:50 IV: 1000ml; Total: 1000ml. fu Outcome: 21:31 Discharge ordered by . 21:54 Condition: stable fu 21:54 Discharge instructions given to patient, Instructed on discharge instructions, follow up and referral plans. Demonstrated understanding of instructions, Prescriptions given X 1. 21:54 Discharged to home ambulatory. fu 21:56 Patient left the ED. fu Addendum: 06/09/2020 15:01 Addendum: COVID-19 Result: Negative result given to RN to notify pt. Notified pt of s s negative COVID 19 swab results. Pt advised that even with a negative test result they should remain in isolation until symptom free for 3 days without medication. Pt also advised to return to the ED for worsening symptoms. Signatures: Dispatcher [employer] EDMS Nichelle Lizama, URBAN REDEVELOPMENT SPECIALIST-C URBAN REDEVELOPMENT SPECIALIST-Kimberly Strauss ds1 Katerina Ta RN RN Rory Berman, Miguel Ivey RN jp3 Stephanie Ibarra RN RN ll1
--- NOTE | 2020-06-04 21:31 | EDPHYS ---
Physician Documentation [facility] Name: Mary Donovan Age: 19 yrs Sex: Female : 2000 Arrival Date: 06/04/2020 Time: 19:15 Bed 13 Private MD: ED Physician Alex Oliveira HPI: 06/04 22:23 This 19 yrs old Female presents to ER via Ambulatory with complaints of kb Dizziness, Vomiting, Abdominal Pain. 22:23 The patient presents to the emergency department with nausea, vomiting. Onset: The kb symptoms/episode began/occurred 3 day(s) ago. Possible causes: unknown. The symptoms are aggravated by nothing. The symptoms are alleviated by nothing. Associated signs and symptoms: Pertinent positives: nausea, vomiting. Severity of symptoms: At their worst the symptoms were moderate in the emergency department the symptoms are unchanged. The patient has experienced a previous episode. The patient has not recently seen a physician. Pt reports nausea/vomiting, dizziness upon changing positions, weakness and sore throat for 3 days. Had similar symptoms 2 months ago, but they went away on their own. 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 - Social history:: Smoking status: Patient reports the use of cigarette tobacco products, denies chronic smoking, but will smoke occasionally. ROS: 22:25 Constitutional: Negative for fever, chills, and weight loss, Cardiovascular: Negative kb for chest pain, palpitations, and edema, Respiratory: Negative for shortness of breath, cough, wheezing, and pleuritic chest pain, Back: Negative for injury and pain, MS/Extremity: Negative for injury and deformity, Skin: Negative for injury, rash, and discoloration. 22:25 ENT: Positive for sore throat. 22:25 Abdomen/GI: Positive for nausea and vomiting, Negative for abdominal pain, diarrhea, constipation. 22:25 Neuro: Positive for dizziness. Exam: 22:26 Constitutional: This is a well developed, well nourished patient who is awake, alert, kb and in no acute distress. Head/Face: Normocephalic, atraumatic. Chest/axilla: Normal chest wall appearance and motion. Nontender with no deformity. No lesions are appreciated. Cardiovascular: Regular rate and rhythm with a normal S1 and S2. No gallops, murmurs, or rubs. Normal PMI, no JVD. No pulse deficits. Respiratory: Lungs have equal breath sounds bilaterally, clear to auscultation and percussion. No rales, rhonchi or wheezes noted. No increased work of breathing, no retractions or nasal flaring. Abdomen/GI: Soft, non-tender, with normal bowel sounds. No distension or tympany. No guarding or rebound. No evidence of tenderness throughout. Skin: Warm, dry with normal turgor. Normal color with no rashes, no lesions, and no evidence of cellulitis. MS/ Extremity: Pulses equal, no cyanosis. Neurovascular intact. Full, normal range of motion. Neuro: Awake and alert, GCS 15, oriented to person, place, time, and situation. Cranial nerves II-XII grossly intact. Motor strength 5/5 in all extremities. Sensory grossly intact. Cerebellar exam normal. Normal gait. Vital Signs: 19:25 BP 126 / 83; Pulse 93; Resp 17; Temp 98.4; Pulse Ox 99% ; Weight 78.93 kg; Height 5 ft. ll1 0 in. (152.40 cm); Pain 8/10; 20:00 BP 107 / 79; Pulse 79; Resp 16; Temp 98.7; Pulse Ox 97% on R/A; Pain 5/10; fu 20:59 BP 104 / 73; Pulse 70; Resp 16; Pulse Ox 99% on R/A; Pain 3/10; fu 19:25 Body Mass Index 33.98 (78.93 kg, 152.40 cm) ll1 MDM: 19:30 Patient medically screened. kb 21:27 Data reviewed: vital signs, nurses notes. Data interpreted: Pulse oximetry: on room air kb is 99 %. Interpretation: normal. Counseling: I had a detailed discussion with the patient and/or guardian regarding: the historical points, exam findings, and any diagnostic results supporting the discharge/admit diagnosis, lab results, radiology results, the need for outpatient follow up, a family practitioner, a chip mucker, to return to the emergency department if symptoms worsen or persist or if there are any questions or concerns that arise at home. 06/04 19:46 Order name: Basic Metabolic Panel; Complete Time: 20:37 kb 06/04 19:46 Order name: CBC with Diff; Complete Time: 20:20 kb 06/04 19:46 Order name: Hepatic Function; Complete Time: 20:37 kb 06/04 19:46 Order name: Lipase; Complete Time: 20:37 kb 06/04 19:46 Order name: [place] Screen Profile; Complete Time: 21:20 kb 06/04 19:46 Order name: Flu; Complete Time: 20:42 kb 06/04 19:46 Order name: IV Saline Lock; Complete Time: 20:05 kb 06/04 19:46 Order name: Labs collected and sent; Complete Time: 20:05 kb 06/04 20:12 Order name: Urine Dipstick--Ancillary (enter results); Complete Time: 21:48 mw2 06/04 20:21 Order name: US Abdomen Limited kb 06/04 21:28 Order name: COVID-19 kb 06/04 19:46 Order name: Urine Dipstick-Ancillary (obtain specimen); Complete Time: 20:11 kb 06/04 19:46 Order name: Urine Test (obtain specimen); Complete Time: 20:11 kb Administered Medications: 20:03 Drug: NS 0.9% 1000 ml Route: IV; Rate: 1000 ml; Site: right antecubital; fu 21:50 Follow up: Response: No adverse reaction; IV Intake: 1000ml fu 20:05 Drug: Zofran (Ondansetron) 4 mg Route: IVP; Site: right antecubital; fu 20:46 Follow up: Response: No adverse reaction fu 20:08 Drug: Pepcid 20 mg Route: IVP; Site: right antecubital; fu 21:08 Follow up: Response: No adverse reaction fu Disposition: 06/05 02:01 Co-signature as Attending Physician, Alex Oliveira MD I agree with the assessment and [facility] plan of care. Disposition: 06/04/20 21:31 Discharged to Home. Impression: Nausea and vomiting, Dizziness and giddiness. - Condition is Stable. - Discharge Instructions: Nausea and Vomiting, Adult, Kepd-fx-Vzls, Vertigo, Oxeb-qx-Soqi, Dizziness, Apdp-jh-Gspt. - Prescriptions for Zofran 4 mg Oral Tablet - take 1 tablet by ORAL route every 12 hours As needed; 20 tablet. - Medication Reconciliation Form, Thank You Letter, Antibiotic Education, Prescription Opioid Use form. - Follow up: Private Physician; When: 2 - 3 days; Reason: Recheck today's complaints, Continuance of care, Re-evaluation by your physician. Follow up: Emergency Department; When: As needed; Reason: Worsening of condition. Signatures: Dispatcher [employer] EDMD Nichelle Lizama, JAMIE-C JAMIE-Rory Craig, TORRES RN fu Alex Oliveira MD MD tw4 Stephanie Ibarra RN RN ll1 Corrections: (The following items were deleted from the chart) 06/04 21:56 21:31 06/04/2020 21:31 Discharged to Home. Impression: Nausea and vomiting; Dizziness fu and giddiness. Condition is Stable. Forms are Medication Reconciliation Form, Thank You Letter, Antibiotic Education, Prescription Opioid Use. Follow up: Private Physician; When: 2 - 3 days; Reason: Recheck today's complaints, Continuance of care, Re-evaluation by your physician. Follow up: Emergency Department; When: As needed; Reason: Worsening of condition. kb
[2020-06-04 21:41] LABS: Urine Blood NEGATIVE (NEG); Urine Glucose NEGATIVE (NEG); Urine Protein NEGATIVE (NEG); Urine Specific Gravity 1.025 (1.005-1.030)
[2020-06-05 04:07] VITALS: TEMP 98.7
[2020-06-05 04:09] VITALS: BP 104/73; O2SAT 99
--- NOTE | 2020-06-05 10:08 | RAD REPORT ---
EXAM DESCRIPTION: US - Abdomen Exam Limited - 06/04/2020 9:09 pm CLINICAL HISTORY: Abdominal pain. COMPARISON: None. FINDINGS: The gallbladder is contracted. The patient had recently eaten. This limits evaluation A gallstone is not seen. The biliary tree is normal caliber. IMPRESSION: Grossly normal gallbladder ultrasound. If the patient's symptoms persist ultrasound shou ld be performed with the patient NPO.
== END 2020-06-04 21:56 | disposition home or self-care (01) ==
LOC: ER 19:14
DX: R11.2 Nausea with vomiting, unspecified (principal); R42 Dizziness and giddiness; F17.210 Nicotine dependence, cigarettes, uncomplicated; Z20.828 Contact with and (suspected) exposure to other viral communicable diseases
CPT/HCPCS: 36415; 76705; 80048; 80076; 81003; 83690; 85025; 86308; 87804; 96374; 96375; 99284; J2405; J7030; U0002

== ENCOUNTER 2020-08-07 13:06 | Emergency (ER) | payer SELFPAY ==
--- OUTSIDE RECORDS SUMMARY | 2020-08-07 13:08 | XMS REPORT | Continuity of Care Document ---
:2000 Author Organization [facility] t Address 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
--- NOTE | 2020-08-07 13:38 | ER ---
Nurse's Notes [facility] Name: Mary Donovan Age: 19 yrs Sex: Female : 2000 Arrival Date: 08/07/2020 Time: 13:07 Bed Waiting Private MD: Diagnosis: Presentation: 08/07 13:37 Note Jessica Registration states pt does not want to wait and eloped at 1323. ca1 ED Course: 13:07 Patient arrived in ED. as 13:37 Patient's name was called from ER lobby. No response. Unable to locate patient. Will ca1 disposition as left without being seen by a provider. Administered Medications: No medications were administered Outcome: 13:38 Patient left the ED. ca1 Signatures: Jessica Dill Cheryl, RN RN ca1
== END 2020-08-07 13:38 | disposition left against medical advice (07) ==
LOC: ER 13:06
DX: R69 Illness, unspecified (principal); Z53.21 Procedure and treatment not carried out due to patient leaving prior to being seen by health care provider

== ENCOUNTER 2020-12-08 11:57 | Emergency (ER) | payer SELFPAY ==
--- OUTSIDE RECORDS SUMMARY | 2020-12-08 11:59 | XMS REPORT | Continuity of Care Document ---
:2000 Author Organization [facility] t Address [address] [place] [address] Care Team Providers Name Role Phone Noam Mcgrath Attending Clinician Problems This patient has no known problems. Allergies, Adverse Reactions, Alerts This patient has no known allergies or adverse reactions. Medications This patient has no known medications. Procedures This patient has no known procedures. 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
[2020-12-08] MEDS ORDERED: TETRACAINE HCL 0.5% 4ML OPTH ONE (13:29)
[2020-12-08] MEDS ORDERED: FLUORESCEIN SODIUM 1 MG/WRAP ONE (13:29)
--- NOTE | 2020-12-08 14:28 | EDPHYS ---
Physician Documentation [facility] Name: Mary Donovan Age: 20 yrs Sex: Female : 2000 Arrival Date: 12/08/2020 Time: 11:59 Bed 19 Private MD: ED Physician Kris Saini HPI: 12/08 13:10 This 20 yrs old Female presents to ER via Ambulatory with complaints of Eye jmm Problem. 13:10 The patient is experiencing pain. Onset: The symptoms/episode began/occurred gradually, jmm today. Duration: the symptoms are continuous. Aggravated by nothing. Alleviated by nothing. Associated signs and symptoms: Pertinent negatives: fever. The patient has not experienced similar symptoms in the past. This is a 20 year old female with a history of asthma that presents to the ED with complaints of right eye pain. Denies known injury. . Historical: - Allergies: 12:28 No Known Allergies; ll1 - PMHx: 12:28 Asthma; ll1 - PSHx: 12:28 None; ll1 - Immunization history:: Flu vaccine is not up to date. - Social history:: Smoking status: Patient denies any tobacco usage or history of. ROS: 13:10 Constitutional: Negative for fever, chills, and weight loss, Cardiovascular: Negative jmm for chest pain, palpitations, and edema, Respiratory: Negative for shortness of breath, cough, wheezing, and pleuritic chest pain. 13:10 Eyes: Positive for pain. 13:10 All other systems are negative. Exam: 13:10 Constitutional: This is a well developed, well nourished patient who is awake, alert, jmm and in no acute distress. Head/Face: atraumatic. 13:10 Neck: Trachea midline, Supple Chest/axilla: Normal chest wall appearance and motion. Cardiovascular: Regular rate and rhythm. No edema appreciated Respiratory: Normal respirations, no respiratory distress appreciated Abdomen/GI: Non distended, soft Back: Normal ROM Skin: General appearance color normal MS/ Extremity: Moves all extremities, no obvious deformities appreciated, no edema noted to the lower extremities Neuro: Awake and alert, normal gait Psych: Behavior is normal, Mood is normal, Patient is cooperative and pleasant 13:10 Eyes: Extraocular movements: intact throughout, Sclera: abrasion, of the lateral aspect of conjunctiva of left eye. Vital Signs: 12:28 BP 123 / 83; Pulse 85; Resp 16; Temp 98.5; Pulse Ox 99% ; Weight 79.38 kg; Height 5 ft. ll1 0 in. (152.40 cm); Pain 10/10; 12:28 Body Mass Index 34.18 (79.38 kg, 152.40 cm) ll1 Visual Acuity: 12:46 Left Eye Visual acuity 20/20, Pupil size 3 mm, Normal, React To Light, Reactive To jd3 Accomodation; Right Eye Visual acuity 20/25, Pupil size 3 mm, Normal, React To Light, Reactive To Accomodation; Both Eyes Visual acuity 20/20; Without Lenses; MDM: 13:13 Patient medically screened. [facility] 14:26 Data reviewed: vital signs, nurses notes. Counseling: I had a detailed discussion with jocy the patient and/or guardian regarding: the historical points, exam findings, and any diagnostic results supporting the discharge/admit diagnosis, the need for outpatient follow up, to return to the emergency department if symptoms worsen or persist or if there are any questions or concerns that arise at home. ED course: Patient is alert and non toxic in appearance in the ED. No vision change. Dye uptake appreciated to the sclera. Advised to follow up with ophthalmology for further evaluation. . 12/08 13:10 Order name: Eye Tray; Complete Time: 13:10 jd3 12/08 13:10 Order name: Fluoresene Opth strip; Complete Time: 13:10 jd3 Administered Medications: 14:06 Drug: Tetracaine Drops 0.5 % 1 drops {Note: given py provider.} Route: Ophthalmic; jd3 Site: right eye; Disposition: 15:22 Co-signature as Attending Physician, Kris Saini MD. rn Disposition: 12/08/20 14:28 Discharged to Home. Impression: Right Sclera Abrasion. - Condition is Stable. - Discharge Instructions: Corneal Abrasion. - Prescriptions for Erythromycin 5 mg/gram (0.5 %) Ophthalmic Ointment - apply 1 centimeter by OPHTHALMIC route 2-3 times daily for 7 days; 1 tube. - Medication Reconciliation Form, Thank You Letter, Antibiotic Education, Prescription Opioid Use form. - Follow up: Stefano Jacob MD; When: 2 - 3 days; Reason: Recheck today's complaints, Continuance of care, Re-evaluation by your physician. Signatures: Rossi Chanel RN RN sv Apollo Lynn PA PA jmm Nieto, Roman, MD MD rn Davies, Jonathon, RN RN jd3 Lewis, Lynsay, RN RN ll1 Corrections: (The following items were deleted from the chart) 14:34 14:28 12/08/2020 14:28 Discharged to Home. Impression: Right Sclera Abrasion. Condition sv is Stable. Forms are Medication Reconciliation Form, Thank You Letter, Antibiotic Education, Prescription Opioid Use. Follow up: Stefano Jacob; When: 2 - 3 days; Reason: Recheck today's complaints, Continuance of care, Re-evaluation by your physician. jocy
--- NOTE | 2020-12-08 14:28 | ER ---
Nurse's Notes [facility] Name: Mary Donovan Age: 20 yrs Sex: Female : 2000 Arrival Date: 12/08/2020 Time: 11:59 Bed 19 [facility] MD: Diagnosis: Right Sclera Abrasion Presentation: 12/08 12:28 Chief complaint: Patient states: R eye irritation for 2 days. Pain got worse today. ll1 Thought she had gotten something in her eye, but can't see anything in it. No fever. Coronavirus screen: Client denies travel out of the [place] in the last 14 days. At this time, the client does not indicate any symptoms associated with coronavirus-19. Ebola Screen: Patient denies travel to an Ebola-affected area in the 21 days before illness onset. Initial Sepsis Screen: Does the patient meet any 2 criteria? No. Patient's initial sepsis screen is negative. Does the patient have a suspected source of infection? No. Patient's initial sepsis screen is negative. Risk Assessment: Do you want to hurt yourself or someone else? Patient reports no desire to harm self or others. Onset of symptoms was December 07, 2020. 12:28 Method Of Arrival: Ambulatory ll1 12:28 Acuity: JOSE 4 ll1 Historical: - Allergies: 12:28 No Known Allergies; ll1 - PMHx: 12:28 Asthma; ll1 - PSHx: 12:28 None; ll1 - Immunization history:: Flu vaccine is not up to date. - Social history:: Smoking status: Patient denies any tobacco usage or history of. Screenin:46 Abuse screen: Denies threats or abuse. Nutritional screening: No deficits noted. jd3 Tuberculosis screening: No symptoms or risk factors identified. Fall Risk Ambulatory Aid- None/Bed Rest/Nurse Assist (0 pts). Gait- Normal/Bed Rest/Wheelchair (0 pts) Mental Status- Oriented to own ability (0 pts). Total Guillermo Fall Scale indicates No Risk (0-24 pts). Assessment: 12:35 General: Appears in no apparent distress. comfortable, Behavior is calm, cooperative, jd3 appropriate for age. Pain: Complains of pain in right eye Quality of pain is described as aching. Neuro: Level of Consciousness is awake, alert, obeys commands, Oriented to person, place, time, situation, Pupils are PERRLA. Cardiovascular: Denies chest pain, Capillary refill < 3 seconds Patient's skin is warm and dry. Respiratory: Airway is patent Respiratory effort is even, unlabored, Respiratory pattern is regular, symmetrical, Denies cough, shortness of breath. GI: No signs and/or symptoms were reported involving the gastrointestinal system. : No signs and/or symptoms were reported regarding the genitourinary system. EENT: Eyes are tearing on right eye Sclera/Cornea are clear in right eye and left eye Reports feeling like her right eye has something in it. no foreign body noted. Derm: Skin is intact, Skin is dry, Skin is normal, Skin temperature is warm. Musculoskeletal: Circulation, motion, and sensation intact. Range of motion: intact in all extremities. 13:30 Reassessment: Patient appears in no apparent distress at this time. Patient and/or jd3 family updated on plan of care and expected duration. Pain level reassessed. Patient is alert, oriented x 3, equal unlabored respirations, skin warm/dry/pink. 14:30 Reassessment: Patient appears in no apparent distress at this time. Patient and/or jd3 family updated on plan of care and expected duration. Pain level reassessed. Patient is alert, oriented x 3, equal unlabored respirations, skin warm/dry/pink. Vital Signs: 12:28 BP 123 / 83; Pulse 85; Resp 16; Temp 98.5; Pulse Ox 99% ; Weight 79.38 kg; Height 5 ft. ll1 0 in. (152.40 cm); Pain 10/10; 12:28 Body Mass Index 34.18 (79.38 kg, 152.40 cm) ll1 Visual Acuity: 12:46 Left Eye Visual acuity 20/20, Pupil size 3 mm, Normal, React To Light, Reactive To jd3 Accomodation; Right Eye Visual acuity 20/25, Pupil size 3 mm, Normal, React To Light, Reactive To Accomodation; Both Eyes Visual acuity 20/20; Without Lenses; ED Course: 11:59 Patient arrived in ED. bp1 12:27 Arm band placed on Patient placed in an exam room, on a stretcher. ll1 12:29 Triage completed. ll1 12:31 Ivan Mcdaniel RN is Primary Nurse. jd3 12:31 Apollo Lynn PA is PHCP. [facility] 12:31 Kris Saini MD is Attending Physician. [facility] 12:47 Patient has correct armband on for positive identification. Bed in low position. Call jd3 light in reach. Side rails up X 1. Pulse ox on. NIBP on. 14:00 Assist provider with eye exam of right eye. using fluorescein stain, Performed by Apollo ECHOLS. 14:27 Stefano Jacob MD is Referral Physician. [facility] 14:33 Patient did not have IV access during this emergency room visit. sv Administered Medications: 14:06 Drug: Tetracaine Drops 0.5 % 1 drops {Note: given py provider.} Route: Ophthalmic; jd3 Site: right eye; Outcome: 14:28 Discharge ordered by . [facility] 14:34 Discharged to home ambulatory. sv 14:34 Condition: stable 14:34 Condition: improved 14:34 Discharge instructions given to patient, Instructed on discharge instructions, follow up and referral plans. medication usage, Demonstrated understanding of instructions, follow-up care, medications, Prescriptions given X 1. 14:34 Patient left the ED. sv Signatures: Rossi Chanel, RN Apollo Dee PA PA jmm Davies, Jonathon, RN RN Stephanie Barrow RN RN ll1 Azalia Dominguez bp1
[2020-12-08 14:41] VITALS: BP 123/83; TEMP 98.5; O2SAT 99
== END 2020-12-08 14:34 | disposition home or self-care (01) ==
LOC: ER 11:57
DX: S05.01XA Injury of conjunctiva and corneal abrasion without foreign body, right eye, initial encounter (principal)
CPT/HCPCS: 99284

== ENCOUNTER 2021-03-20 16:59 | Emergency (ER) | payer OTHER, SELFPAY ==
--- OUTSIDE RECORDS SUMMARY | 2021-03-20 17:03 | XMS REPORT | Continuity of Care Document ---
:2000 Author Organization [facility] t Address 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
--- NOTE | 2021-03-20 19:06 | ER ---
Nurse's Notes [facility] Name: Mary Donovan Age: 20 yrs Sex: Female : 2000 Arrival Date: 03/20/2021 Time: 17:30 Bed Waiting Private MD: Diagnosis: ED Course: 03/20 17:30 Patient arrived in ED. ds1 18:31 [facility] jocy 18:31 Terence Liu MD is Attending Physician. jocy Administered Medications: No medications were administered Outcome: 19:06 Patient left the ED. iw Signatures: Apollo Lynn PA PA jmm Sanford, Demi ds1 Kati Montano, RN RN iw
== END 2021-03-20 19:06 | disposition left against medical advice (07) ==
LOC: ER 16:59
DX: Z02.9 Encounter for administrative examinations, unspecified (principal)

== ENCOUNTER 2021-05-31 17:12 | Emergency (ER) | payer OTHER ==
--- OUTSIDE RECORDS SUMMARY | 2021-05-31 17:16 | XMS REPORT | Continuity of Care Document ---
:2000 Author Organization [facility] t Address [address] [place] [address] Care Team Providers Name Role Phone Ana Laura HOYT Primary Care Physician Doctor Unassigned, Name Attending Clinician Unavailable Noam Mcgrath Attending Clinician DR SCOT Attending Clinician Unavailable Noam MAR Attending Clinician Unavailable Neil Cueto DO Attending Clinician Lab Attending Clinician Unavailable Delia Solorio Attending Clinician Delia DALE Attending Clinician Unavailable Ana Laura HOYT Attending Clinician Provider, Temp Attending Clinician Unavailable ANA LAURA Attending Clinician Unavailable DR SCOT Admitting Clinician Unavailable Payers Payer Name Policy Type Policy Number Effective Date Expiration Date S ource Advance Directives Directive Decision Effective Termination Comments Source Date Date Healthcare Agents on N/A [facility] FileNameRelationshipHealthcare [facility] Agent Medical RelationshipCommunicationMaria Foreman [facility] [phone] (Mobile) Problems Condition Condition Condition Status Onset Resolution Last Treating Co mments Source Name Details Category Date Date Treatment Clinician Date Other Other Disease Active 2020- Univers general general 3-30 [place] of [place] advice 00 Me dical for for Branch contracept contracept veronica veronica management management Amenorrhea Amenorrhea Disease Active U nivers 3-02 ity of 00:00: [place] 00 Medical Branch Nexplanon Nexplanon Disease Active Uni vers removal removal 6-22 ity of 00:00: [place] 00 Medical Branch Chlamydia Chlamydia Disease Active Uni vers trachomati trachomati 6-15 it y of s s 00:00: [place] infection infection 00 Medi milagros of lower of lower Branch genitourin genitourin andrew sites andrew sites Vaginal Vaginal Disease Active Univers irritation irritation 4-23 it y of 00:00: [place] 00 Medical Branch Encounter Encounter Disease Active Uni vers for for 9-24 [place] of contracept [place]pt [place] ver[place] veronica 00 Medical management management Br anch , , unspecifie unspecifie d type d type Screening Screening Disease Active Uni vers examinatio examinatio 9-12 it y of n for STD n for STD 00:00: Todd montaño (sexually (sexually 00 Medi milagros transmitte transmitte Br anch d disease) d disease) [place] Disease Active Univers luteum luteum 912 ity of cyst or cyst or 00:00: [place] hematoma hematoma 00 Medica l Branch Pain Pain Disease Active Univers pelvic pelvic 9-12 ity of 00:00: [place] 00 [facility] Branch Overweight Overweight Disease Active U nivers (BMI (BMI 9-12 ity of 25.0-29.9) 25.0-29.9[place] [facility] [place] Allergies, Adverse Reactions, Alerts Allergy Allergy Status Severity Reaction(s) Onset Inactive Treating Comm ents Source Name Type Date Date Clinician NO KNOWN Drug Active Univers ALLERGIE Class ity of S [facility] Social History Social Habit Start Date Stop Date Quantity Comments Source History of Cigarette Smoker Universi ty of tobacco use [facility] Exposure to Not sure University of SARS-CoV-2 [facility] [place] (event) Foreman Alcohol intake 2020-11-06 2020-11-06 Ex-drinker University of 00:00:00 00:00:00 (finding) [facility] Tobacco Comment 2018-03-22 2018-03-22 on social Universit y of 00:00:00 00:00:[address] [facility] Alcohol Comment 2018-03-22 2018-03-22 socially Universit y of 00:00:00 00:00:00 [facility] Tobacco use and 2018-03-22 2018-03-22 Never used Universit y of exposure 00:00:00 00:00:00 [facility] Sex Assigned At [birth year] Universit y of 00:00:00 00:00:00 [facility] Smoking Status Start Date Stop Date Source Current some day smoker 2018-03-22 00:00:00 [facility] Medications Ordered Filled Start Stop Current Ordering Indication Dosage Frequency Signature Comments Components Source Medication Medication Date Date Medication? Clinician (SIG) Name Name No known No Univers medications - ity of :13: [address] No known No Univers medications - ity of : [address] medroxyPROG 2020-2020- No [id number] 10mg Take 1 Univers ESTERone 3-31 04-11 tablet by ity o f (PROVERA) 00:00: 04:59 mouth [place] 10 mg 00 :00 daily for Medical tablet 10 days. Branch medroxyPROG 2020- No [id number] 10mg Take 1 Univers ESTERone 3-31 04-11 tablet by ity o f (PROVERA) 00:00: 04:59 mouth [place] 10 mg 00 :00 daily for Medical tablet 10 days. Branch ampicillin 2020-2020- No [id number] 500mg Take 1 Univers 500 mg 3-05 03-16 capsule by ity of capsule 00:00: 04:59 mouth 4 [place] 00 :00 (four) Medical times Foreman daily for 10 days. ampicillin 2020-2020- No [id number] 500mg Take 1 Univers 500 mg 3-05 03-16 capsule by ity of capsule 00:00: 04:59 mouth 4 [place] 00 :00 (four) Medical times Foreman daily for 10 days. ampicillin 2020-1- No [id number] 500mg Take 1 Univers 500 mg 3-05 03-16 capsule by ity of capsule 00:00: 04:59 mouth 4 [place] 00 :00 (four) Medical times Foreman daily for 10 days. ampicillin 2020-2020- No [id number] 500mg Take 1 Univers 500 mg 3-05 03-16 capsule by ity of capsule 00:00: 04:59 mouth 4 [place] 00 :00 (four) Medical times Foreman daily for 10 days. abdoul 2019-0 2020- No [id number] 1000mg Take 2 Univers n 500 mg 6-15 06-16 tablets by ity of tablet 00:00: 04:59 [place] 00 :[place] now for 1 Medical dose. Branch No known No [facility] known No [facility] No known No [facility] No known No [facility] No [facility] No [facility] No [facility] No [facility] No [facility] No Univers medications [facility] No known No Univers medications [facility] No known No Univers medications [facility] No known No Univers medications [facility] No known No Univers medications [facility] No known No Univers medications [facility] No known No Univers medications [facility] No known No Univers medications [facility] No known No Univers medications [facility] No known No Univers medications [facility] No known No Univers medications [facility] No known No Univers medications [facility] No known No Univers medications [facility] Vital Signs Vital Name Observation Time Observation Value Comments Source Systolic blood 2020-11-06 13:25:00 122 mm[Hg] [facility] Diastolic blood 2020-11-06 13:25:00 77 mm[Hg] [facility] Heart rate 2020-11-06 13:25:00 80 /min [facility] [place] [facility] Body temperature 2020-11-06 13:25:00 36.5 Val [facility] Respiratory rate 2020-11-06 13:25:00 16 /min General acute hospital Body height 2020-11-06 13:25:00 152.4 cm [facility] [place] [facility] Body weight 2020-11-06 13:25:00 81.449 kg Universi ty [facility] BMI 2020-11-06 13:25:00 35.07 kg/m2 [facility]i ty [facility] [place] [facility] Systolic blood 2020-11-06 13:25:00 122 mm[Hg] Univer sity of pressure [place] [facility] Diastolic blood 2020-11-06 13:25:00 77 mm[Hg] Unive rsity of pressure [place] [facility] Heart rate 2020-11-06 13:25:00 80 /min Universi ty [facility] [place] [facility] Body temperature 2020-11-06 13:25:00 36.5 Val Univ ersity [facility] [place] [facility] Respiratory rate 2020-11-06 13:25:00 16 /min Univ ersity [facility] [place] [facility] Body height 2020-11-06 13:25:00 152.4 cm Universi ty [facility] [place] [facility] Body weight 2020-11-06 13:25:00 81.449 kg Universi ty of [place] [facility] BMI 2020-11-06 13:25:00 35.07 kg/m2 Universi ty of [place] [facility] Systolic blood 2020-10-07 20:19:00 113 mm[Hg] Univer sity of pressure [place] [facility] Diastolic blood 2020-10-07 20:19:00 79 mm[Hg] Unive rsity of pressure [place] [facility] Heart rate 2020-10-07 20:19:00 71 /min Universi ty [facility] [place] [facility] Body temperature 2020-10-07 20:19:00 36.83 Val Univ ersity [facility] [place] [facility] Respiratory rate 2020-10-07 20:19:00 16 /min Univ ersity [facility] [place] [facility] Body height 2020-10-07 20:19:00 152.4 cm [facility]i ty [facility] [place] [facility] Body weight 2020-10-07 20:19:00 84.823 kg Universi ty [facility] [place] [facility] BMI 2020-10-07 20:19:00 36.52 kg/m2 [facility]i ty [facility] [place] [facility] Systolic blood 2020-09-09 22:13:00 124 mm[Hg] Univer sity of pressure [place] [facility] Diastolic blood 2020-09-09 22:13:00 73 mm[Hg] Unive rsity of pressure [place] [facility] Heart rate 2020-09-09 22:13:00 78 /min Universi ty [facility] [place] [facility] Body temperature 2020-09-09 22:13:00 36.83 Val Univ ersity [facility] [place] [facility] Respiratory rate 2020-09-09 22:13:00 16 /min Univ ersity of [place] [facility] Body height 2020-09-09 22:13:00 152.4 cm Universi ty [facility] [place] [facility] Body weight 2020-09-09 22:13:00 82.555 kg Universi ty of [place] [facility] BMI 2020-09-09 22:13:00 35.54 kg/m2 Universi ty [facility] [place] [facility] Systolic blood 2020-05-05 19:34:00 106 mm[Hg] Univer sity of pressure [place] [facility] Diastolic blood 2020-05-05 19:34:00 67 mm[Hg] Unive rsity of pressure [place] [facility] Heart rate 2020-05-05 19:34:00 79 /min Universi ty of [place] [facility] Body temperature 2020-05-05 19:34:00 36.33 Val Univ ersity [facility] [place] [facility] Respiratory rate 2020-05-05 19:34:00 16 /min Univ ersity [facility] [place] [facility] Body height 2020-05-05 19:34:00 152.4 cm Universi ty [facility] [place] [facility] Body weight 2020-05-05 19:34:00 78.472 kg [facility]i ty [facility] [place] [facility] BMI 2020-05-05 19:34:00 33.79 kg/m2 Universi ty of [place] [facility] Systolic blood 2020-02-27 16:02:00 112 mm[Hg] Univer sity of pressure [place] [facility] Diastolic blood 2020-02-27 16:02:00 72 mm[Hg] Unive rsity of pressure [place] [facility] Heart rate 2020-02-27 16:02:00 69 /min Universi ty of [place] [facility] Body temperature 2020-02-27 16:02:00 36.83 Val Univ ersity of [place] [facility] Respiratory rate 2020-02-27 16:02:00 16 /min Univ ersity of [place] [facility] Body height 2020-02-27 16:02:00 152.4 cm Universi ty [facility] [place] [facility] Body weight 2020-02-27 16:02:00 76.93 kg Universi ty [facility] [place] [facility] BMI 2020-02-27 16:02:00 33.12 kg/m2 Universi ty of [place] [facility] Systolic blood 2019-12-31 14:12:00 123 mm[Hg] Univer sity of pressure [place] [facility] Diastolic blood 2019-12-31 14:12:00 78 mm[Hg] Unive rsity of pressure [facility] Heart rate 2019-12-31 14:12:00 89 /min Universi ty of [facility] Body temperature 2019-12-31 14:12:00 36.61 Val Univ [facility] Respiratory rate 2019-12-31 14:12:00 16 /min Univ ersity of [facility] Body height 2019-12-31 14:12:00 152.4 cm [address] [facility] Body weight 2019-12-31 14:12:00 77.[address] [facility] BMI 2019-12-31 14:12:00 33.26 kg/m2 Universi ty of [facility] Systolic blood 2019-12-21 17:54:00 124 mm[Hg] Univer sity of pressure [facility] Diastolic blood 2019-12-21 17:54:00 70 mm[Hg] Unive rsity of pressure [facility] Heart rate 2019-12-21 17:54:00 94 /min Universi ty of [facility] Body temperature 2019-12-21 17:54:00 37.39 Val Univ ersity [facility] Respiratory rate 2019-12-21 17:54:00 16 /min Univ ersity of [facility] Body height 2019-12-21 17:54:00 144.8 cm Universi ty of [facility] Body weight 2019-12-21 17:54:00 76.[address] [facility] BMI 2019-12-21 17:54:00 36.37 kg/m2 Universi ty of [facility] Procedures Procedure Date / Time Performing Clinician Source Performed ASSIGNMENT OF BENEFITS 2021-05-01 13:09:49 Doctor Unassigned, No [facility] POCT TEST 2020-11-06 14:48:00 Isabela Mar Uni [facility] POCT TEST 2020-10-07 21:24:00 Isabela Mar [facility] PROLACTIN 2020-10-07 21:07:00 Isabela Mar [facility] [place] [facility] ity [facility] THYROID STIMULATING 2020-10-07 21:07:00 Isabela Mar Uni [facility] POCT TEST 2020-09-09 22:24:00 Peggy Dale [facility] POCT TEST 2020-05-05 19:40:00 Isabela Mar [facility] ASSIGNMENT OF BENEFITS 2019-12-31 13:55:59 Doctor Unassigned, No [facility] NOTICE OF PRIVACY 2019-12-21 17:37:24 Doctor Unassigned, No [facility] Encounters Start End Encounter Admission Attending Care Care Encounter Source Date/Time Date/Time Type Type Clinicians Facility Department ID 2021-05-01 2021-05-01 Outpatient R [facility] [id number] Univers 08:00:00 08:00:[id number] [facility] 2021-05-01 2021-05-01 Outpatient R [facility] [id number] Univers 08:00:00 08:00:00 ity [facility] 2021-05-01 2021-05-01 Orders Doctor WHITT [id number] Univers 00:00:00 00:00:00 Only Unassigned, BOLIVAR [id number] ity of [place] [facility] [id number] [place] as [phone] [address] 2021-04-29 2021-04-29 [facility] [id number] Univers 00:00:00 00:00:00 Isabela Santacruz FORMULA WEIGHER [id number] ity [facility] [id number] [place] as MATERNAL [phone] Med ical & CHILD [address] [place] [address] 2021-04-09 2021-04-09 Outpatient BRANDYN RAMIREZ [id number] Anjali 10:21:00 13:06:[address] [facility] 2020-12-22 2020-12-22 Outpatient R MITCHELL [facility] [id number] Univers 15:15:00 15:15:00 ISABELA [id number] ity o f [facility] 2020-12-22 2020-12-22 Outpatient R AKINSIPE, [facility] [id number] Univers 15:15:00 15:15:00 ISABELA ity o [facility] 2020-12-22 2020-12-22 Outpatient R AKINSIPE, [facility] [id number] Univers 15:15:00 15:15:00 ISABELA ity o [facility] 2020-11-20 2020-11-20 Outpatient R AKINSIPE, [facility] [id number] Univers 09:15:00 09:15:00 ISABELA [id number] ity o [facility] 2020-11-20 2020-11-20 Outpatient R AKINSIPE, [facility] [id number] Univers 09:15:00 09:15:00 ISABELA ity o [facility] 2020-11-06 2020-11-06 Office Akinsipe, [facility] [id number] Univers 08:18:54 08:38:59 Visit [facility] C FORMULA WEIGHER [id number] [facility] [id number] [place] as MATERNAL [id number] [facility] ical & CHILD [address] [place] [address] 2020-11-06 2020-11-06 Office Akinsipe, [facility] [id number] 08:18:54 08:38:59 Visit [facility] C FORMULA WEIGHER [id number] [facility] [id number] MATERNAL [id number] & CHILD [address] [place] [address] 2020-11-06 2020-11-06 Outpatient R AKINSIPE, [facility] [id number] Univers 08:15:00 08:15:00 ISABELA [id number] ity o [facility] 2020-11-06 2020-11-06 Outpatient R AKINSIPE, [facility] [id number] Univers 08:15:00 08:15:00 ISABELA ity o [facility] 2020 2020 Outpatient R AKINSIPE, [facility] [id number] Univers 15:15:00 15:15:00 ISABELA [id number] ity o [facility] 2020 2020 [facility] [id number] Univers 15:15:00 15:15:00 ISABELA waltery o [facility] 2020-10-08 2020-10-08 [facility] [id number] Univers 00:00:00 00:00:00 Isabela Santacruz FORMULA WEIGHER [id number] ity of [facility] [id number] [place] as MATERNAL [phone] [facility] [address] [place] [address] 2020-10-07 2020-10-07 Office [facility] [id number] Univers 15:01:18 16:07:47 Visit Isabela Santacruz FORMULA WEIGHER [id number] ity of [facility] [id number] [place] as MATERNAL [id number] [facility] & CHILD [address] [place] [address] 2020-10-07 2020-10-07 [facility] [id number] Univers 15:15:00 15:15:00 ISABELA [id number] [facility] 2020-10-07 2020-10-07 [facility] [id number] Univers 15:15:00 15:15:00 ISABELA [facility] 2020-09-30 2020-09-30 [facility] [id number] Univers 00:00:00 00:00:00 Outreach Jah PRIMARY [id number] i ty of [facility] [id number] [place] [id number] [address] 2020-09-12 2020-09-12 Telephone [facility] [id number] Univers 00:00:00 00:00:00 Isabela Santacruz FORMULA WEIGHER [id number] ity of [facility] [id number] [place] as MATERNAL [id number] [facility] [address] [place] [address] 2020-09-09 2020-09-09 Office Akinsipe, [facility] [id number] Univers 15:42:23 16:40:48 Visit Isabela Santacruz FORMULA WEIGHER [id number] ity [facility] [id number] [place] as MATERNAL [id number] [facility] & [address] 2020-09-09 2020-09-09 Outpatient R MITCHELL, [facility] [id number] Univers 16:00:00 16:00:00 ISABELA [id number] ity o [facility] 2020-09-09 2020-09-09 Outpatient R MITCHELL, [facility] [id number] Univers 16:00:00 16:00:00 ISABELA ity o [facility] 2020-05-05 2020-05-05 Office Miltonronen, [facility] [id number] Univers 14:19:41 14:48:30 Visit Isabela Santacruz FORMULA WEIGHER [id number] ity [facility] [id number] [place] as MATERNAL [id number] [address] 2020-05-05 2020-05-05 [facility] [id number] Univers 14:30:00 14:30:00 ISABELA waltery o [facility] 2020-05-05 2020-05-05 Outpatient R [facility] [id number] Univers 08:00:00 08:00:00 [id number] ity [facility] 2020-04-03 2020-04-03 Neon Technician Lab, Ang-Rmchp [facility] 1.2.840. [id number] Univers 08:30:00 08:45:00 Visit Peggy Dale FORMULA WEIGHER [id number] ity [facility] [id number] [place] as MATERNAL [phone] [facility] & [address] 2020-04-03 2020-04-03 Outpatient R [facility] [id number] Univers 08:30:00 08:30:00 [id number] ity [facility] 2020-04-03 2020-04-03 Outpatient R SUYAPA [facility] [id number] Univers 08:30:00 08:30:00 PEGGY ity o f [facility] 2020-03-28 2020-03-28 Outpatient [facility] [id number] Univers 08:30:00 08:30:00 [id number] ity [facility] 2020-03-28 2020-03-28 Outpatient R [facility] [id number] Univers 08:30:00 08:30:00 ity [facility] 2020-02-27 2020-02-27 Office [facility] [id number] Univers 10:48:17 11:25:47 Visit Peggy Lin FORMULA WEIGHER [id number] ity [facility] [id number] [place] as MATERNAL [id number] Med ical & CHILD [address] [place] [address] 2020-02-27 2020-02-27 Outpatient SUYAPA [facility] [id number] Univers 11:00:00 11:00:00 PEGGY [id number] jose angely o [facility] 2020-02-27 2020-02-27 [facility] [id number] Univers 11:00:00 11:00:00 PEGGY waltery o [facility] 2019-12-31 2019-12-31 Office [facility] [id number] Univers 08:56:50 09:26:50 Visit Peggy Lin FORMULA WEIGHER [id number] ity [facility] [id number] [place] as MATERNAL [id number] [facility] ical & CHILD [address] [place] [address] 2019-12-31 2019-12-31 Outpatient R SUYAPA [facility] [id number] Univers 09:00:00 09:00:00 PEGGY [id number] ity o f [facility] 2019-12-31 2019-12-31 [facility] [id number] Univers 09:00:00 09:00:00 PEGGY waltery o [facility] 2019-12-31 2019-12-31 Orders Doctor PERI [id number] [id number] Univers 00:00:00 00:00:00 Only Unassigned, BOLIVAR [id number] ity of [place] [facility] [id number] [place] as [phone] [address] 2019-12-25 2019-12-25 Patient Doctor [facility] [id number] Univers 00:00:00 00:00:00 Secure Msg Unassigned, FORMULA WEIGHER [id number] ity of [place] [facility] [id number] [place] as MATERNAL [phone] Med ical & CHILD 107 [facility] 2019-12-24 2019-12-24 Case Ana Laura [facility] [id number] Univers 00:00:00 00:00:00 Management Simona FORMULA WEIGHER [id number] ity of [facility] [id number] [place] as MATERNAL [id number] Med ical & CHILD 130 [facility] 2019-12-21 2019-12-21 Office Provider, PernellRmchliza [facility] 1 .2.840.114 [id number] Univers 12:45:27 13:38:16 Visit Simona Du FORMULA WEIGHER [id number] ity of [facility] [id number] [place] as MATERNAL [id number] Med ical & CHILD [address] [place] [address] 2019-12-21 2019-12-21 Outpatient R [facility] [id number] Univers 12:45:00 12:45:[id number] [facility] 2019-12-21 2019-12-21 Outpatient R ANA LAURA [facility] [id number] Univers 12:45:00 12:45:[address] [facility] 2019-12-21 2019-12-21 Orders Doctor PERI [id number] Univers 00:00:00 00:00:00 Only Unassigned, BOLIVAR [id number] ity of [place] [facility] [id number] [place] as [phone] [address] Results Test Description Test Time Test Comments Results Result Comments Source URINE MONOCLONALRO 2021-04-09 10:48:00 Test Item Value Reference Range Interpretation Comme nts PREG UR (test code = PGU) NEGATIVE NEGATIVE POCT [id number] 14:48:00 Test Item Value Reference Range Interpretation Comments POCT PREG (test code = 1605) Negative On board controls acceptable with C Yes Line (test code = 3574) POCT PREG LOT # (test code = 3575) POCT PREG TEST DATE (test code = 3576) [facility] [id number] 14:48:00 Test Item Value Reference Range Interpretation Comments POCT PREG (test code = 1605) Negative On board controls acceptable with C Yes Line (test code = 3574) POCT PREG LOT # (test code = 3575) POCT PREG TEST DATE (test code = 3576) [facility] 04:47:46 Test Item Value Reference Range Interpretation Comments PROLACTIN (test code = 8988134231) 12.7 ng/mL 3.3-26.7 Lab Interpretation (test code = Normal 92854-0) [facility] 04:47:46 Test Item Value Reference Range Interpretation Comments PROLACTIN (test code = 3841355731) 12.7 ng/mL 3.3-26.7 Lab Interpretation (test code = Normal 74034-0) [facility] [id number] 04:05:14 Test Item Value Reference Range Interpretation Comments TSH (test code = See_Comment Biotin has been [id number]) reported to cau se a negative bias, interpret resul ts relative to pat naif's use of biotin. [Automated mess age] The system Pint Please generated this result transmitted ref erence range: 0.45 - 4 .70 mIU/L. The refe rence range was not u sed to interpret this result as normal/abnor mal. Lab Interpretation (test Normal code = 91817-4) [facility] [id number] 04:05:14 Test Item Value Reference Range Interpretation Comments TSH (test code = See_Comment Biotin has been [id number]) reported to cau se a negative bias, interpret resul ts relative to pat naif's use of biotin. [Automated mess age] The system Pint Please generated this result transmitted ref erence range: 0.45 - 4 .70 mIU/L. The refe rence range was not u sed to interpret this result as normal/abnor mal. Lab Interpretation (test Normal code = 15544-5) [facility] [id number] 21:24:00 Test Item Value Reference Range Interpretation Comments POCT PREG (test code = 1605) Negative On board controls acceptable with C Yes Line (test code = 3574) POCT PREG LOT # (test code = 3575) POCT PREG TEST DATE (test code = 3576) [facility] [id number] 21:24:00 Test Item Value Reference Range Interpretation Comments POCT PREG (test code = 1605) Negative On board controls acceptable with C Yes Line (test code = 3574) POCT PREG LOT # (test code = 3575) POCT PREG TEST DATE (test code = 3576) [facility] [id number] 22:25:00 Test Item Value Reference Range Interpretation Comments POCT PREG (test code = 1605) Negative On board controls acceptable with C Yes Line (test code = 3574) POCT PREG LOT # (test code = 3575) POCT PREG TEST DATE (test code = 3576) [facility] [id number] 22:25:00 Test Item Value Reference Range Interpretation Comments POCT PREG (test code = 1605) Negative On board controls acceptable with C Yes Line (test code = 3574) POCT PREG LOT # (test code = 3575) POCT PREG TEST DATE (test code = 3576) [facility] [id number] 19:40:00 Test Item Value Reference Range Interpretation Comments POCT PREG (test code = 1605) Negative On board controls acceptable with C Yes Line (test code = 3574) POCT PREG LOT # (test code = 3575) POCT PREG TEST DATE (test code = 3576) [facility] [id number] 19:40:00 Test Item Value Reference Range Interpretation Comments POCT PREG (test code = 1605) Negative On board controls acceptable with C Yes Line (test code = 3574) POCT PREG LOT # (test code = 3575) POCT PREG TEST DATE (test code = 3576) [facility]
[2021-05-31 18:22] LABS: Urine Blood Trace-intact (Negative); Urine Glucose Negative (Negative); Urine Protein Negative (Negative); Urine Specific Gravity >=1.030 (1.005-1.030); Urine pH 5.5 (5.0-7.0)
[2021-05-31 18:26] LABS: Urine Specific Gravity/Preg >1.030 (1.005-1.030)
[2021-05-31 19:19] LABS: Absolute Lymphocytes (CBC) 1.9 K/uL (0.7-4.9); Basophils % 0.1 % (0-1.3); Lymphocytes % 14.2 % (15.3-44.8); MPV 7.2 fL (7.6-11.3); RBC Red Blood Cell Count 4.58 M/uL (3.86-4.86)
[2021-05-31 19:38] LABS: BUN Blood Urea Nitrogen 8 mg/dL (7-18); Bicarbonate 25 mmol/L (21-32); Glucose Level 88 mg/dL (74-106); HCG, Quantitative 89266 mIU/mL (1-3); Lipase 72 U/L (73-393); Potassium 3.6 mmol/L (3.5-5.1); Sodium Level 139 mmol/L (136-145)
--- NOTE | 2021-05-31 20:24 | RAD REPORT ---
EXAM DESCRIPTION: US - Abdomen Exam Limited - 05/31/2021 7:34 pm CLINICAL HISTORY: epigastric pain;Abd pain COMPARISON: Abdomen Exam Limited dated 06/04/2020 FINDINGS: No gallstones, sludge or other abnormalities within the gallbladder lumen. There is no wal l thickening or pericholecystic fluid. No common duct stone or biliary tree dilatation identified. IMPRESSION: Normal gallbladder and biliary tree ultrasound.
--- NOTE | 2021-05-31 20:27 | RAD REPORT ---
EXAM DESCRIPTION: US - 1St Trimest Single 1St Fetus - 05/31/2021 7:35 pm CLINICAL HISTORY: ABD PAIN COMPARISON: No comparisons TECHNIQUE: Transabdominal sonography was performed. Patient declined endovaginal examination. FINDINGS: Normal shaped intrauterine gestational sac identified. Yolk sac is seen. pole is pre sent with heart rate 161 BPM. Gestational sac and crown-rump length measurements correspond to a 7 we ek 6 day age. Calculated GIULIA is 01/11/2022. No intrauterine hematoma or mass. Cervical canal appears closed. Uterus is normal size with no myomet rial mass. Normal size right ovary is seen. Normal blood flow seen in the right ovarian stroma. No right adnexal abnormality. Left ovary was obscured by bowel. No left adnexal abnormality seen. No blood or fluid i n the cul de sac. IMPRESSION: Single 7 week 6 day IUP with normal heart rate. No uterine abnormality seen. Right ovary and right adnexa unremarkable. Left ovary was obscured by bowel. No left adnexal mass seen.
--- NOTE | 2021-05-31 20:45 | EDPHYS ---
Physician Documentation [facility] Name: Mary Donovan Age: 20 yrs Sex: Female : 2000 Arrival Date: 05/31/2021 Time: 17:48 Bed 20 Private MD: ED Physician Kris Saini HPI: 05/31 20:41 This 20 yrs old Female presents to ER via Ambulatory with complaints of jmm Abnormal Lab Results 9Wks Preg. 20:41 The patient presents with abdominal pain in the epigastric area. Onset: The jmm symptoms/episode began/occurred gradually. The symptoms do not radiate. Associated signs and symptoms: Pertinent negatives: nausea and vomiting, diarrhea. The symptoms are described as achy, sharp. Modifying factors: The symptoms are alleviated by nothing, the symptoms are aggravated by nothing. The patient has not experienced similar symptoms in the past. G1, P1. 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 - Social history:: Smoking status: Patient denies any tobacco usage or history of. ROS: 20:41 Constitutional: Negative for fever, chills, and weight loss, Cardiovascular: Negative jmm for chest pain, palpitations, and edema, Respiratory: Negative for shortness of breath, cough, wheezing, and pleuritic chest pain. 20:41 Abdomen/GI: Positive for abdominal pain. 20:41 All other systems are negative. Exam: 20:41 Constitutional: This is a well developed, well nourished patient who is awake, alert, jmm and in no acute distress. Head/Face: atraumatic. Eyes: EOMI, no conjunctival erythema appreciated ENT: Moist Mucus Membranes Neck: Trachea midline, Supple Chest/axilla: Normal chest wall appearance and motion. Cardiovascular: Regular rate and rhythm. No edema appreciated Respiratory: Normal respirations, no respiratory distress appreciated 20:41 Back: Normal ROM Skin: General appearance color normal MS/ Extremity: Moves all extremities, no obvious deformities appreciated, no edema noted to the lower extremities Neuro: Awake and alert, normal gait Psych: Behavior is normal, Mood is normal, Patient is cooperative and pleasant 20:41 Abdomen/GI: Inspection: abdomen appears normal, Bowel sounds: normal, Palpation: soft, mild abdominal tenderness, in the epigastric area. Vital Signs: 17:52 BP 105 / 72; Pulse 94; Resp 18 S; Temp 97.6(TE); Pulse Ox 99% on R/A; Weight 79 kg (R); aa5 Height 5 ft. 0 in. (152.40 cm) (R); 18:30 BP 105 / 60; Pulse 86; Resp 18; Temp 97.8; Pulse Ox 99% ; sl2 19:31 BP 104 / 68; Pulse 82; Resp 20; Temp 97.8(O); Pulse Ox 100% on R/A; Pain 0/10; kc4 21:05 BP 105 / 72; Pulse 78; Resp 18; Temp 98.0(O); Pulse Ox 100% on R/A; Pain 0/10; kc4 17:52 Body Mass Index 34.01 (79.00 kg, 152.40 cm) aa5 MDM: 18:08 Patient medically screened. [facility] 20:43 Data reviewed: vital signs, nurses notes. Counseling: I had a detailed discussion with jocy the patient and/or guardian regarding: the historical points, exam findings, and any diagnostic results supporting the discharge/admit diagnosis, lab results, radiology results, the need for outpatient follow up, to return to the emergency department if symptoms worsen or persist or if there are any questions or concerns that arise at home. ED course: Patient is alert and nontoxic in appearance in the ED. Patient can tolerate p.o. I do not suspect acute cholecystitis or acute appendicitis. UA is normal as well. Patient advised to follow-up with ENTRY LEVEL PROGRAMMER for further evaluation otherwise given strict return precautions. Patient understood and agrees plan of care.. 05/31 18:08 Order name: Abo/rh Typing [facility] 05/31 18:08 Order name: Basic Metabolic Panel [facility] 05/31 18:08 Order name: CBC with Diff [facility] 05/31 18:08 Order name: Quantitative Hcg [facility] 05/31 18:08 Order name: Lipase; Complete Time: 19:54 [facility] 05/31 18:09 Order name: ABO/RH typing; Complete Time: 20:18 [facility] 05/31 18:08 Order name: IV Saline Lock; Complete Time: 18:41 [facility] 05/31 18:09 Order name: Basic Metabolic Panel; Complete Time: 19:54 [facility] 05/31 18:09 Order name: CBC with Automated Diff; Complete Time: 19:28 [facility] 05/31 18:09 Order name: HCG, Quantitative; Complete Time: 19:54 [facility] 05/31 18:09 Order name: US Abdomen Limited; Complete Time: 20:36 [facility] 05/31 18:09 Order name: US 1st Trimest Single 1st Fetus; Complete Time: 20:36 [facility] 05/31 18:22 Order name: Urine --Ancillary (enter results); Complete Time: 18:55 bd 05/31 18:22 Order name: Urine Dipstick-Ancillary; Complete Time: 18:55 [facility] 05/31 18:08 Order name: Labs collected and sent; Complete Time: 18:41 [facility] 05/31 18:08 Order name: NPO; Complete Time: 18:42 [facility] 05/31 18:08 Order name: Urine Dipstick-Ancillary (obtain specimen); Complete Time: 18:42 [facility] Administered Medications: No medications were administered Disposition Summary: 05/31/21 20:44 Discharge Ordered Location: Home [facility] Condition: Stable [facility] Diagnosis - Abdominal pain, unspecified [facility] Followup: [facility] - With: Private Physician - When: 1 - 2 days - Reason: Recheck today's complaints, Continuance of care, Re-evaluation by your physician Discharge Instructions: - Discharge Summary Sheet [facility] - Abdominal Pain, Adult [facility] Forms: - Medication Reconciliation Form [facility] - Thank You Letter [facility] - Antibiotic Education [facility] - Prescription Opioid Use [facility] Prescriptions: - Pepcid 20 mg Oral Tablet - take 1 tablet by ORAL route every 12 hours for 10 days; 20 tablet; Refills: 0, [facility] Product Selection Permitted Addendum: 06/03/2021 07:08 Co-signature as Attending Physician, Kris Saini MD I agree with the assessment and r n plan of care. Attestation: The patient's history, exam findings, diagnostics, and a summary of any interventions or procedures was reviewed in detail with Apollo ECHOLS. Signatures: Dispatcher [facility] Apollo Lynn PA PA Kris Aguillon MD MD rn Calderon, Audri, RN RN aa5
--- NOTE | 2021-05-31 20:45 | ER ---
Nurse's Notes [facility] Name: Mary Donovan Age: 20 yrs Sex: Female : 2000 Arrival Date: 05/31/2021 Time: 17:48 Bed 20 Private MD: Diagnosis: Abdominal pain, unspecified Presentation: 05/31 17:52 Chief complaint: Patient states: upper abd pain that is described as pressure that aa5 began 0400 today and it's intermittent. Pt also reports being 9 weeks , denies vaginal bleeding. Pt states [place] was high in my blood like an infection and they didn't know if the baby was okay or not". Pt reports low grade fever this morning. Coronavirus screen: fever. Ebola Screen: No symptoms or risks identified at this time. Initial Sepsis Screen: Does the patient meet any 2 criteria? HR > 90 bpm. Does the patient have a suspected source of infection? No. Patient's initial sepsis screen is negative. Risk Assessment: Do you want to hurt yourself or someone else? Patient reports no desire to harm self or others. Onset of symptoms was May 2021. 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 - Social history:: Smoking status: Patient denies any tobacco usage or history of. Screenin:10 Abuse screen: Denies threats or abuse. Abuse screen: Denies injuries from another. sl2 Nutritional screening: No deficits noted. Tuberculosis screening: No symptoms or risk factors identified. Fall Risk None identified. No fall in past 12 months (0 pts). No secondary diagnosis (0 pts). No IV (0 pts). Ambulatory Aid- None/Bed Rest/Nurse Assist (0 pts). Gait- Normal/Bed Rest/Wheelchair (0 pts) Mental Status- Oriented to own ability (0 pts). Assessment: 18:10 General: Appears in no apparent distress. well groomed, well developed, Behavior is sl2 calm, cooperative, appropriate for age, Reports Epigastric pain. 18:10 Pain: Complains of pain in Epigastric pain Pain does not radiate. Pain currently is 5 sl2 out of 10 on a pain scale. Quality of pain is described as burning, aching, Pain began suddenly. Neuro: No deficits noted. Cardiovascular: No deficits noted. Reports. Respiratory: No deficits noted. Reports. GI: Reports epigastric pain. : No deficits noted. No signs and/or symptoms were reported regarding the genitourinary system. EENT: No deficits noted. No signs and/or symptoms were reported regarding the EENT system. Derm: No deficits noted. No signs and/or symptoms reported regarding the dermatologic system. Musculoskeletal: No deficits noted. No signs and/or symptoms reported regarding the musculoskeletal system. 19:39 Reassessment: Patient and/or family updated on plan of care and expected duration. Pain kc4 level reassessed. Patient is alert, oriented x 3, equal unlabored respirations, skin warm/dry/pink. Patient states feeling better. Vital Signs: 17:52 BP 105 / 72; Pulse 94; Resp 18 S; Temp 97.6(TE); Pulse Ox 99% on R/A; Weight 79 kg (R); aa5 Height 5 ft. 0 in. (152.40 cm) (R); 18:30 BP 105 / 60; Pulse 86; Resp 18; Temp 97.8; Pulse Ox 99% ; sl2 19:31 BP 104 / 68; Pulse 82; Resp 20; Temp 97.8(O); Pulse Ox 100% on R/A; Pain 0/10; kc4 21:05 BP 105 / 72; Pulse 78; Resp 18; Temp 98.0(O); Pulse Ox 100% on R/A; Pain 0/10; kc4 17:52 Body Mass Index 34.01 (79.00 kg, 152.40 cm) aa5 ED Course: 17:48 Patient arrived in ED. ds1 17:52 Arm band placed on. aa5 17:55 Triage completed. aa5 17:57 Apollo Lynn PA is PHCP. [facility] 17:57 Kris Saini MD is Attending Physician. m 18:10 No provider procedures requiring assistance completed. sl2 18:11 Madie Alvarez, RN is Primary Nurse. sl2 18:44 Patient has correct armband on for positive identification. Placed in gown. Bed in low mh5 position. Call light in reach. Side rails up X 1. Warm blanket given. Pulse ox on. NIBP on. 18:45 Initial lab(s) drawn, by ED staff, sent to lab. T\\T\\S collected, blood band applied to mh5 patient. Urine collected: clean catch specimen, clear. Inserted saline lock: 22 gauge in right antecubital area, using aseptic technique. Blood collected. 18:46 CBC with Automated Diff Sent. mh5 18:46 HCG, Quantitative Sent. mh5 18:46 Basic Metabolic Panel Sent. mh5 18:46 ABO/RH typing Sent. mh5 18:46 Lipase Sent. mh5 18:46 Abo/rh Typing Sent. 5 18:47 Basic Metabolic Panel Sent. 5 18:47 CBC with Diff Sent. 5 18:47 Quantitative Hcg Sent. 5 18:51 Patient taken to ultrasound. via wheelchair. sl2 19:34 US Abdomen Limited In Process Unspecified. EDMS 19:35 US 1st Trimest Single 1st Fetus In Process Unspecified. EDMS 21:07 IV discontinued, intact, bleeding controlled, No redness/swelling at site. Pressure kc4 dressing applied. Administered Medications: No medications were administered Outcome: 20:44 Discharge ordered by . jocy 21:06 Discharged to home ambulatory. [facility] 21:06 Condition: improved 21:06 Discharge instructions given to patient, Instructed on discharge instructions, follow up and referral plans. medication usage, Demonstrated understanding of instructions, follow-up care, medications, Prescriptions given X 1. 21:07 Patient left the ED. 4 Signatures: Dispatcher [employer] EDMS Apollo Lynn PA PA jmm Sanford, Demi ds1 Salena Krishnamurthy, RN RN [id number] Alyssa Dill 5 Rika Bolton kc4 Madie Alvarez, TORRES RN sl2 Corrections: (The following items were deleted from the chart) 17:58 17:52 BP 105 / 72; Pulse 94bpm; Resp 18bpm; Spontaneous; Pulse Ox 99% RA; 79 kg aa5 Reported; Height 5 ft. 0 in. Reported; BMI: 34.0; aa5
[2021-05-31 21:20] VITALS: O2SAT 100
[2021-05-31 21:22] VITALS: BP 105/72; TEMP 98
== END 2021-05-31 21:07 | disposition home or self-care (01) ==
LOC: ER 17:12
DX: O26.891 Other specified pregnancy related conditions, first trimester (principal); Z3A.09 9 weeks gestation of pregnancy
CPT/HCPCS: 36415; 76705; 76801; 80048; 81003; 81025; 83690; 84702; 85025; 86900; 86901; 99284

== ENCOUNTER 2023-04-13 00:27 | Emergency (ER) | payer OTHER, SELFPAY ==
--- OUTSIDE RECORDS SUMMARY | 2023-04-13 00:30 | XMS REPORT | Continuity of Care Document ---
:2000 Author Organization [facility] t Address [address] [place] [address] Care Team Providers Name Role Phone SIMONA DU Primary Care Physician Unavailable RADIOLOGY Attending Clinician Unavailable Radiology Attending Clinician Unavailable ISABELA MAR Attending Clinician Unavailable Isabela Mcgrath Attending Clinician [phone] Doctor Unassigned, [place] Attending Clinician Unavailable DR JOSE ELLISON Attending Clinician Unavailable Jah Cueto DO Attending Clinician LabIndy Attending Clinician Unavailable Peggy Solorio Attending Clinician PEGGY DALE Attending Clinician Unavailable Simona Roche Attending Clinician ProviderIndy Temp Attending Clinician Unavailable SIMONA DU Attending Clinician Unavailable DR JOSE ELLISON Admitting Clinician Unavailable Payers Payer Name Policy Type Policy Number Effective Date Expiration Date S rachid [employer] [id number] 2022 00:00:00 Problems Condition Condition Condition Status Onset Resolution Last Treating Co mments Source Name Details Category Date Date Treatment Clinician Date Other Other Disease Active Univers general general 3-30 [place]y of counseling [place] and advice 00 Me dical for for Branch contracept contracept veronica veronica management management Amenorrhea Amenorrhea Disease Active U nivers 3-02 ity of 00:00: [place] [address] Medical Branch Nexplanon Nexplanon Disease Active Uni vers removal removal 6-22 ity of 00:00: [place] [address] Medical Branch Chlamydia Chlamydia Disease Active Uni vers trachomati trachomati 6-15 it y of s s 00:00: [place] infection infection 00 Medi milagros of lower of lower Branch genitourin genitourin andrew sites andrew sites Vaginal Vaginal Disease Active Univers irritation irritation 4-23 it y of 00:00: [place] [address] Medical Branch Encounter Encounter Disease Active Uni vers for for 9-24 ity of contracept [place]pt [place] ver[place] veronica 00 Medical management management Br anch , , unspecifie unspecifie d type d type Obesity Obesity Disease Active Univers (BMI (BMI 9-12 ity of 30-39.9) 30-39.9) 00:00: [address] Branch Screening Screening Disease Active Uni vers examinatio examinatio 9-12 it y of n for STD n for STD 00:00: [place] (sexually (sexually 00 Medi milagros transmitte transmitte Br anch d disease) d disease) [place] Disease Active Univers luteum luteum 9-12 ity of cyst or cyst or 00:00: [place] hematoma hematoma 00 Medica l Branch Pain Pain Disease Active Univers pelvic pelvic 9-12 ity of 00:00: [place] 00 Medical Branch Overweight Overweight Disease Active U nivers (BMI (BMI 9-12 ity of 25.0-29.9) 25.0-29.9) [place] Allergies, Adverse Reactions, Alerts Allergy Allergy Status Severity Reaction(s) Onset Inactive Treating Comm ents Source Name Type Date Date Clinician NO KNOWN Drug Active Univers ALLERGIE Class ity of S [facility] No Known DA Active [facility] Social History Social Habit Start Date Stop Date Quantity Comments Source History of Cigarette Smoker Universi ty of tobacco use [facility] Exposure to 2022-07-11 2022-07-21 Not sure University of SARS-CoV-2 00:00:00 13:00:00 [facility] (event) [place] Alcohol intake 2022-07-21 2022-07-21 Ex-drinker [facility] 00:00:00 00:00:00 (finding) [facility] Tobacco Comment 2022-07-21 2022-07-21 on social Universit y of 00:00:00 00:00:00 occassion [facility] Tobacco use and 2022-07-21 2022-07-21 Smokeless tobacco Un iversity of exposure 00:00:00 00:00:00 non-user [facility] Alcohol Comment 2018-03-22 2018-03-22 socially Universit y of 00:00:00 00:00:00 [facility] Sex Assigned At [birth year] Universit y of 00:00:00 00:00:00 [facility] Smoking Status Start Date Stop Date Source Occasional tobacco smoker 2022-07-21 00:00:00 Un iversity of [facility] Medications Ordered Filled Start Stop Current Ordering Indication Dosage Frequency Signature Comments Components Source Medication Medication Date Date Medication? Clinician (SIG) Name Name iopamidol 2022- No [id number] 79mL 79 mL, Univers (ISOVUE 16 02-16 Intravenou ity o f 370-500 mL) 22:00: 21:13 s, ONCE, 1 [place] injection 00 :00 dose, On Medica l 79 mL [facility] 08/26/22 at 1600, Routine No known No No known Unive rs medications -11 medication it y of 13:07: s [address] No known 0 No No known Unive rs medications -11 medication it y of 13:07: s [address] No known 2020-0 No Univers medications 4-29 ity of 09:13: [address] No known 2020-0 No Univers medications 4-29 ity of 09:13: [address] No known 2020-0 No No known Unive rs medications 4-29 medication it y of 09:13: s [address] medroxyPROG 2020- No [id number] 10mg Take 1 Univers ESTERone 3-31 04-11 tablet by ity o f (PROVERA) 00:00: 04:59 mouth [place] 10 mg 00 :00 daily for Medical tablet 10 days. Branch medroxyPROG 2020- No [id number] 10mg Take 1 Univers ESTERone 3-31 04-11 tablet by ity o f (PROVERA) 00:00: 04:59 mouth [place] 10 mg 00 :00 daily for Medical tablet 10 days. Branch ampicillin 2020- No [id number] 500mg Take 1 Univers 500 mg 3-05 03-16 capsule by ity of capsule 00:00: 04:59 mouth 4 [place] 00 :00 (four) Medical times [place] daily for 10 days. ampicillin 2020- No [id number] 500mg Take 1 Univers 500 mg 3-05 03-16 capsule by ity of capsule 00:00: 04:59 mouth 4 [place] 00 :00 (four) Medical times [place] daily for 10 days. ampicillin 2020- No [id number] 500mg Take 1 Univers 500 mg 3-05 03-16 capsule by ity of capsule 00:00: 04:59 mouth 4 [place] 00 :00 (four) Medical times [place] daily for 10 days. ampicillin 2020- No [id number] 500mg Take 1 Univers 500 mg 3-05 03-16 capsule by ity of capsule 00:00: 04:59 mouth 4 [place] 00 :00 (four) Medical times [place] daily for 10 days. azithromyci 0 2020- No [id number] 1000mg Take 2 Univers n 500 mg 6-15 06-16 tablets by ity of tablet 00:00: 04:59 [place] 00 :[place] now for 1 Medical dose. Branch No known No Univers medications [facility] No known No Univers medications [facility] No known No Univers medications [facility] No known No Univers medications [facility] No known No Univers medications [facility] No known No Univers medications [facility] No known No Univers medications [facility] No known No Univers medications [facility] No known No Univers medications [facility] No known No Univers medications [facility] No known No Univers medications [facility] No known No Univers medications [facility] No known No Univers medications ity of [place] [facility] No known No Univers medications ity of [place] [facility] No known No Univers medications ity of [place] [facility] No known No Univers medications ity of [place] [facility] No known No Univers medications ity of [place] [facility] No known No Univers medications ity of [place] [facility] No known No Univers medications ity of [place] [facility] Vital Signs Vital Name Observation Time Observation Value Comments Source Systolic blood 2022-07-21 19:03:00 108 mm[Hg] Univer sity of pressure [facility] Branch Diastolic blood 2022-07-21 19:03:00 70 mm[Hg] Unive rsity of pressure [facility] Branch Heart rate 2022-07-21 19:03:00 73 /min Universi ty of [facility] Body temperature 2022-07-21 19:03:00 36.94 Val Univ ersity of [facility] Branch Respiratory rate 2022-07-21 19:03:00 18 /min Univ ersity of [facility] Body height 2022-07-21 19:03:00 152.4 cm Universi ty of [place] [facility] [place] Body weight 2022-07-21 19:03:00 78.472 kg Universi ty of [place] [facility] BMI 2022-07-21 19:03:00 33.79 kg/m2 Universi ty of [place] [facility] Height 2021-04-09 10:55:00 152.4 CM Weight 2021-04-09 10:55:00 75.38 KG Height 2021-04-02 11:07:00 152.4 CM Weight 2021-04-02 11:07:00 74.84 KG Systolic blood 2020-11-06 13:25:00 122 mm[Hg] Univer sity of [facility] Medical Branch Diastolic blood 2020-11-06 13:25:00 77 mm[Hg] Unive rsity of pressure [facility] Branch Heart rate 2020-11-06 13:25:00 80 /min Universi ty of [place] [facility] Body temperature 2020-11-06 13:25:00 36.5 Val Univ ersity of [facility] Branch Respiratory rate 2020-11-06 13:25:00 16 /min Univ ersity of [facility] Branch Body height 2020-11-06 13:25:00 152.4 cm Universi ty of [place] [facility] Body weight 2020-11-06 13:25:00 81.449 kg Universi ty of [place] [facility] BMI 2020-11-06 13:25:00 35.07 kg/m2 Universi ty of [place] [facility] Systolic blood 2020-11-06 13:25:00 122 mm[Hg] Univer sity of pressure [place] [facility] Diastolic blood 2020-11-06 13:25:00 77 mm[Hg] Unive rsity of pressure [place] [facility] Heart rate 2020-11-06 13:25:00 80 /min Universi ty of [place] [facility] Body temperature 2020-11-06 13:25:00 36.5 Val Univ ersity of [place] [facility] Respiratory rate 2020-11-06 13:25:00 16 /min Univ ersity of [place] [facility] Body height 2020-11-06 13:25:00 152.4 cm Universi ty of [place] [facility] Body weight 2020-11-06 13:25:00 81.449 kg Universi ty of [place] [facility] BMI 2020-11-06 13:25:00 35.07 kg/m2 Universi ty of [place] [facility] Systolic blood 2020-10-07 20:19:00 113 mm[Hg] Univer sity of pressure [place] [facility] Diastolic blood 2020-10-07 20:19:00 79 mm[Hg] Unive rsity of pressure [place] [facility] Heart rate 2020-10-07 20:19:00 71 /min Universi ty of [place] [facility] Body temperature 2020-10-07 20:19:00 36.83 Val Univ ersity of [place] [facility] Respiratory rate 2020-10-07 20:19:00 16 /min Univ ersity of [place] [facility] Body height 2020-10-07 20:19:00 152.4 cm Universi ty of [place] [facility] Body weight 2020-10-07 20:19:00 84.823 kg Universi ty of [place] [facility] BMI 2020-10-07 20:19:00 36.52 kg/m2 Universi ty of [place] [facility] Systolic blood 2020-09-09 22:13:00 124 mm[Hg] Univer sity of pressure [place] [facility] Diastolic blood 2020-09-09 22:13:00 73 mm[Hg] Unive rsity of pressure [place] [facility] Heart rate 2020-09-09 22:13:00 78 /min Universi ty of [place] [facility] Body temperature 2020-09-09 22:13:00 36.83 Val Univ ersity of [place] [facility] Respiratory rate 2020-09-09 22:13:00 16 /min Univ ersity of [place] [facility] Body height 2020-09-09 22:13:00 152.4 cm Universi ty of [place] [facility] Body weight 2020-09-09 22:13:00 82.555 kg Universi ty of [place] [facility] BMI 2020-09-09 22:13:00 35.54 kg/m2 Universi ty of [place] [facility] Systolic blood 2020-05-05 19:34:00 106 mm[Hg] Univer sity of pressure [place] [facility] Diastolic blood 2020-05-05 19:34:00 67 mm[Hg] Unive rsity of pressure [place] [facility] Heart rate 2020-05-05 19:34:00 79 /min Universi ty of [place] [facility] Body temperature 2020-05-05 19:34:00 36.33 Val Univ ersity of [place] [facility] Respiratory rate 2020-05-05 19:34:00 16 /min Univ ersity of [place] [facility] Body height 2020-05-05 19:34:00 152.4 cm Universi ty of [place] [facility] Body weight 2020-05-05 19:34:00 78.472 kg Universi ty of [place] [facility] BMI 2020-05-05 19:34:00 33.79 kg/m2 Universi ty of [place] [facility] Systolic blood 2020-02-27 16:02:00 112 mm[Hg] Univer sity of pressure [place] [facility] Diastolic blood 2020-02-27 16:02:00 72 mm[Hg] Unive rsity of pressure [place] [facility] Heart rate 2020-02-27 16:02:00 69 /min Universi ty of [place] [facility] Body temperature 2020-02-27 16:02:00 36.83 Val Univ ersity of [place] [facility] Respiratory rate 2020-02-27 16:02:00 16 /min Univ ersity of [place] [facility] Body height 2020-02-27 16:02:00 152.4 cm Universi ty of [place] [facility] Body weight 2020-02-27 16:02:00 76.93 kg Universi ty of [place] [facility] BMI 2020-02-27 16:02:00 33.12 kg/m2 Universi ty of [place] [facility] Systolic blood 2019-12-31 14:12:00 123 mm[Hg] Univer sity of pressure [place] [facility] Diastolic blood 2019-12-31 14:12:00 78 mm[Hg] Unive rsity of pressure [place] [facility] Heart rate 2019-12-31 14:12:00 89 /min Universi ty of [place] [facility] [place] Body temperature 2019-12-31 14:12:00 36.61 Val Univ ersity of [facility] Branch Respiratory rate 2019-12-31 14:12:00 16 /min Univ ersity of [place] [facility] Body height 2019-12-31 14:12:00 152.4 cm Universi ty of [place] [facility] Body weight 2019-12-31 14:12:00 77.253 kg Universi ty of [place] [facility] BMI 2019-12-31 14:12:00 33.26 kg/m2 Universi ty of [place] [facility] Systolic blood 2019-12-21 17:54:00 124 mm[Hg] Univer sity of pressure [facility] Branch Diastolic blood 2019-12-21 17:54:00 70 mm[Hg] Unive rsity of pressure [facility] Branch Heart rate 2019-12-21 17:54:00 94 /min Universi ty of [place] [facility] Body temperature 2019-12-21 17:54:00 37.39 Val Univ ersity of [facility] Respiratory rate 2019-12-21 17:54:00 16 /min Univ ersity of [place] [facility] [place] Body height 2019-12-21 17:54:00 144.8 cm Universi ty of [place] [facility] [place] Body weight 2019-12-21 17:54:00 76.233 kg Universi ty of [place] [facility] BMI 2019-12-21 17:54:00 36.37 kg/m2 Universi ty of [place] [facility] Procedures Procedure Date / Time Performing Clinician Source Performed HB CREATININE 2022-08-26 21:43:00 Radiology [facility] o f [place] SERUM/BLOOD FOR IMAGING Medical Branch CT HEAD W CONTRAST 2022-08-26 21:12:15 Requisition, Paper Univer sity of [facility] CT HEAD WO CONTRAST 2022-08-26 21:05:06 Requisition, Paper Unive rsity [facility] CONSENT/REFUSAL FOR 2022-08-26 20:10:13 [facility] Name Medical Branch ASSIGNMENT OF BENEFITS 2022-08-26 20:09:55 Doctor Unassigned, No [facility] GALV ONLY - VAGINAL 2022-07-21 19:56:00 Isabela Mar [facility] PATHOGENS BY NUCLEIC Medical [facility] ACID TESTING HIV 1/2 AG-AB WITH 2022-07-21 19:56:00 Isabela Mar [facility] REFLEX [facility] PAP SMEAR-LIQUID 2022-07-21 19:56:00 Isabela Mar [facility] BASED-CP [facility] SYPHILIS IGG/IGM 2022-07-21 19:56:00 Isabela Mar [facility] FLU VACC (), 6 2022-07-21 19:37:13 Isabela Mar [facility] MO-63 YRS, .5ML, IM, Medical [facility] QUAD (FLUCELVAX) ASSIGNMENT OF BENEFITS 2022-07-21 18:29:43 Doctor Unassigned, No [facility] ASSIGNMENT OF BENEFITS 2021-05-01 13:09:49 Doctor Unassigned, No [facility] EXCISION RT LW 2021-04-09 00:00:00 [facility]i milagros ARM\T\WRIST TENDON OP Center POCT TEST 2020-11-06 14:48:00 Isabela Mar [facility] POCT TEST 2020-10-07 21:24:00 Isabela Mar [facility] PROLACTIN 2020-10-07 21:07:00 Isabela Mar [facility] THYROID STIMULATING 2020-10-07 21:07:00 Isabela Mar [facility] HORMONE [facility] POCT TEST 2020-09-09 22:24:00 Peggy Dale [facility] POCT TEST 2020-05-05 19:40:00 Isabela Mar Uni [facility] ASSIGNMENT OF BENEFITS 2019-12-31 13:55:59 Doctor Unassigned, No [facility] NOTICE OF PRIVACY 2019-12-21 17:37:24 Doctor Unassigned, No [facility] Name [facility] Encounters Start End Encounter Admission Attending Care Care Encounter Source Date/Time Date/Time Type Type Clinicians Facility Department ID 2022-12-20 2022-12-20 Outpatient [facility] [id number] Kaleb 15:22:35 15:22:35 0612 [facility] 2022-11-30 2022-11-30 Outpatient [facility] [id number] Kaleb 17:24:32 17:24:32 0523 [facility] 2022-08-26 2022-08-26 Outpatient R RADIOLOGY [facility] [id number] Univers 14:15:36 23:59:00 ity [facility] 2022-08-26 2022-08-26 [facility] Radiology [facility] [id number] Univers 14:15:36 23:59:00 Encounter [place] [id number] ity of [place] [id number] [facility] [id number] [address] 2022-08-26 2022-08-26 [facility] Radiology [facility] [id number] Univers 14:14:51 14:14:51 Encounter [place] [id number] [facility] [id number] [facility] [id number] [address] 2022-08-23 2022-08-23 Outpatient R RADIOLOGY [facility] [id number] Univers 00:00:00 00:00:00 ity of [facility] 2022-08-10 2022-08-10 Outpatient [facility] [id number] Kaleb 13:05:04 13:05:04 0131 [facility] 2022-08-05 2022-08-05 Outpatient [facility] [id number] Kaleb 09:44:03 09:44:03 0126 [facility] 2022-07-21 2022-07-21 Outpatient R AKINSIPE, [facility] [id number] Univers 13:00:00 14:07:30 ISABELA prasad o [facility] 2022-07-21 2022-07-21 Office [place], [facility] [id number] Univers 13:00:00 14:07:30 Visit Isabela Santacruz [employer] [place] [id number] ity of [facility] [id number] [place] as MATERNAL [id number] [facility] & CHILD [address] [place] [address] 2022-07-21 2022-07-21 Orders Doctor WHITT [id number] Univers 00:00:00 00:00:00 Only Unassigned, [place] [id number] ity of [place] [facility] [id number] [place] as [id number] [address] 2021-05-01 2021-05-01 Outpatient R [facility] [id number] Univers 08:00:00 08:00:00 ity of [facility] 2021-05-01 2021-05-01 Orders Doctor PERI [id number] Univers 00:00:00 00:00:00 Only Unassigned, [place] [id number] ity of [place] [facility] [id number] [place] as [id number] [address] 2021-04-29 2021-04-29 Telephone [facility] [id number] Univers 00:00:00 00:00:00 Isabela Santacruz [employer] [place] [id number] ity of [facility] [id number] [place] as MATERNAL [id number] [facility] & CHILD [address] [place] [address] 2021-04-09 2021-04-09 Outpatient Noam ELLISON Noam JORGENSEN [id number] [facility] 10:21:00 13:06:00 [facility] 2020-12-22 2020-12-22 Outpatient R ISABELA, [facility] [id number] Univers 15:15:00 15:15:00 ISABELA prasad o f [facility] 2020-12-22 2020-12-22 Outpatient R ISABELA, [facility] [id number] Univers 15:15:00 15:15:00 ISABELA prasad o f [facility] 2020-11-20 2020-11-20 Outpatient R AKINSIPE, [facility] [id number] Univers 09:15:00 09:15:00 ISABELA waltery o f [facility] 2020-11-06 2020-11-06 Office A[place], [facility] [id number] Univers 08:18:54 08:38:59 Visit Isabela C [employer] [place] [id number] ity of REGIONAL [id number] [place] as MATERNAL [id number] [facility] & CHILD [address] [place] [address] 2020-11-06 2020-11-06 Office A[place], [facility] [id number] 08:18:54 08:38:59 Visit Isabela C [employer] [place] [id number] REGIONAL [id number] MATERNAL [id number] & [address] 2020-11-06 2020-11-06 Outpatient R AKINSIPE, [facility] [id number] Univers 08:15:00 08:15:00 ISABELA waltery o [facility] 2020 2020 Outpatient R AKINSIPE, [facility] [id number] Univers 15:15:00 15:15:00 ISABELA ity o f [facility] 2020-10-08 2020-10-08 Telephone Isabela, [facility] [id number] Univers 00:00:00 00:00:00 Isabela C [employer] [place] [id number] ity of REGIONAL [id number] [place] as MATERNAL [id number] [facility] & CHILD [address] [place] [address] 2020-10-07 2020-10-07 Office Akins[place], [facility] [id number] Univers 15:01:18 16:07:47 Visit Isabela C [employer] [place] [id number] ity of REGIONAL [id number] [place] as MATERNAL [id number] [facility] & CHILD [address] [place] [address] 2020-10-07 2020-10-07 [facility] [id number] Univers 15:15:00 15:15:00 ISABELA mahmood [facility] 2020-09-30 2020-09-30 Patient Rom [facility] [id number] Univers 00:00:00 00:00:00 Outreach Jah PRIMARY [id number] i ty of [facility] 4.2.7.2.686 [place] [id number] La dical [address] [place] [address] 2020-09-12 2020-09-12 Telephone [facility] [id number] Univers 00:00:00 00:00:00 Isabela C [employer] [place] [id number] ity of [facility] [id number] [place] as MATERNAL [id number] Med ical & CHILD [address] [place] [address] 2020-09-09 2020-09-09 [facility] [id number] Univers 15:42:23 16:40:48 Visit Isabela C [employer] [place] [id number] ity of [facility] [id number] [place] as MATERNAL [id number] Med ical & CHILD [address] [place] [address] 2020-09-09 2020-09-09 Out[facility] [id number] Univers 16:00:00 16:00:00 ISABELA mahmood [facility] 2020-05-05 2020-05-05 Office [facility] [id number] Univers 14:19:41 14:48:30 Visit Isabela C [employer] [place] [id number] ity of [facility] [id number] [place] as MATERNAL [id number] [facility] ical & CHILD [address] [place] [address] 2020-05-05 2020-05-05 [facility] [id number] Univers 14:30:00 14:30:00 ISABELA mahmood [facility] 2020-04-03 2020-04-03 [employer] [facility], [facility] 1.2.840. [id number] Univers 08:30:00 08:45:00 Visit Shae Daleminh Lin [employer] [place] [id number] ity of [facility] [id number] [place] as MATERNAL [id number] [facility] & CHILD [address] [place] [address] 2020-04-03 2020-04-03 Outpatient R SUYAPA [facility] [id number] Univers 08:30:00 08:30:00 PEGGY prasad o f [facility] 2020-03-28 2020-03-28 Outpatient R [facility] [id number] Univers 08:30:00 08:30:00 ity of [facility] 2020-02-27 2020-02-27 [facility] [id number] Univers 10:48:17 11:25:47 Visit Peggy Lin [employer] [place] [id number] ity of [facility] [id number] [place] as MATERNAL [id number] [address] 2020-02-27 2020-02-27 Outpatient R SUYAPA [facility] [id number] Univers 11:00:00 11:00:00 PEGGY prasad o ela [facility] 2019-12-31 2019-12-31 Office Suyapa [facility] [id number] Univers 08:56:50 09:26:50 Visit Peggy Delia PRODUCT TESTER [place] [id number] ity of [facility] [id number] Thomas as MATERNAL [phone] [facility] & [address] 2019-12-31 2019-12-31 Outpatient R SUYAPA [facility] [id number] Univers 09:00:00 09:00:00 PEGGY prasad o [facility] 2019-12-31 2019-12-31 Orders Doctor WHITT [id number] Univers 00:00:00 00:00:00 Only Unassigned, BOLIVAR 350.1.13.10 ity of [place] [facility] [id number] Thomas as [id number] [address] 2019-12-25 2019-12-25 Patient Doctor [facility] [id number] Univers 00:00:00 00:00:00 Secure Msg Unassigned, PRODUCT TESTER [place] [id number] ity of [place] [facility] [id number] Thomas as MATERNAL [id number] Med ical & [place]ILD 107 [facility] [place]-12-24 2019-12-24 Case Ana Laura [facility] [id number] Univers 00:00:00 00:00:00 Management Simona PRODUCT TESTER [place] 350.1.13.10 ity of [address]686 Thomas as MATERNAL [phone] Med ical & CHILD 130 [facility] 2019-12-21 2019-12-21 Office [facility] 1 .2.840.114 [id number] Univers 12:45:27 13:38:16 Visit Simona Du PRODUCT TESTER [place] 350.1.13.10 ity of [place] [id number] Thomas as MATERNAL [id number] [facility] & CHILD [address] [place] [address] 2019-12-21 2019-12-21 Outpatient R ANA LAURA [facility] [id number] Univers 12:45:00 12:45:00 SIMONA prasad o f [facility] 2019-12-21 2019-12-21 Orders Doctor PERI [id number] Univers 00:00:00 00:00:00 Only Unassigned, BOLIVAR 350.1.13.10 ity of [place] [address]686 Thomas as [phone] [address] Results Test Description Test Time Test Comments Results Result Comments Source POCT CREATININE 2022-08-26 22:02:31 Test Item Value Reference Range Interpretation Comme nts POCT Creatinine (test code = 1562285572) 0.6 mg/dL 0.5-1.1 Lab Interpretation (test code = 39994-9) [id number] 18:23:23 Test Item Value Reference Range Interpretation Comments Syphilis IgG/IgM (test Non-reactive Non-reactive code = 16077-9) KRISTY (test code = KRISTY) Non-reactive - No serologic evidence of T. pallidum infection. Cannot exclude incubating or early syphilis. Submit a second specimen in 2-4 weeks if syphilis is clinically suspected. Equivocal - Further testing to follow. Reactive - Further testing to follow. Lab Interpretation (test Normal code = 11916-2) [id number] 18:23:23 Test Item Value Reference Range Interpretation Comments Syphilis IgG/IgM (test Non-reactive Non-reactive code = 28341-8) KRISTY (test code = KRISTY) Non-reactive - No serologic evidence of T. pallidum infection. Cannot exclude incubating or early syphilis. Submit a second specimen in 2-4 weeks if syphilis is clinically suspected. Equivocal - Further testing to follow. Reactive - Further testing to follow. Lab Interpretation (test Normal code = 81679-2) [facility] 1/2 AG-AB WITH [id number] 08:08:09 Test Item Value Reference Range Interpretation Comments HIV Negative Negative Semi-quantitative (test code = 70532-0) KRISTY (test code = Non-reactive for HIV-1 KRISTY) antigen and HIV-1/HIV-2 antibodies. ?No laboratory evidence of HIV infection. ?Repeat in 2-4 weeks if acute HIV infection is suspected. [facility] 1/2 AG-AB WITH [id number] 08:08:09 Test Item Value Reference Range Interpretation Comments HIV Negative Negative Semi-quantitative (test code = 95069-4) KRISTY (test code = Non-reactive for HIV-1 KRISTY) antigen and HIV-1/HIV-2 antibodies. ?No laboratory evidence of HIV infection. ?Repeat in 2-4 weeks if acute HIV infection is suspected. [facility] MON[facility]CLONALRO2021-04-09 10:48:00 Test Item Value Reference Range Interpretation Comments PREG UR (test code = PGU) NEGATIVE NEGATIVE POCT [id number] 14:48:00 Test Item Value Reference Range Interpretation Comments POCT PREG (test code = 1605) Negative On board controls acceptable with C Yes Line (test code = 3574) POCT PREG LOT # (test code = 3575) POCT PREG TEST DATE (test code = 3576) [facility] [id number] 14:48:00 Test Item Value Reference Range Interpretation Comments POCT PREG (test code = 1605) Negative On board controls acceptable with C Yes Line (test code = 3574) POCT PREG LOT # (test code = 3575) POCT PREG TEST DATE (test code = 3576) [facility]21[facility] 04:47:46 Test Item Value Reference Range Interpretation Comments PROLACTIN (test code = 4539040456) 12.7 ng/mL 3.3-26.7 Lab Interpretation (test code = Normal 70311-5) [facility]21[facility] 04:47:46 Test Item Value Reference Range Interpretation Comments PROLACTIN (test code = 2981090817) 12.7 ng/mL 3.3-26.7 Lab Interpretation (test code = Normal 15429-6) [facility] [id number] 04:05:14 Test Item Value Reference Range Interpretation Comments TSH (test code = See_Comment Biotin has been 3558130120) reported to cau se a negative bias, interpret resul ts relative to pat ient's use of biotin. [Automated mess age] The system [employer] generated this result transmitted ref erence range: 0.45 - 4 .70 mIU/L. The refe rence range was not u sed to interpret this result as normal/abnor mal. Lab Interpretation (test Normal code = 90033-3) [facility] [id number] 04:05:14 Test Item Value Reference Range Interpretation Comments TSH (test code = See_Comment Biotin has been 7456033662) reported to cau se a negative bias, interpret resul ts relative to pat ient's use of biotin. [Automated mess age] The system [employer] generated this result transmitted ref erence range: 0.45 - 4 .70 mIU/L. The refe rence range was not u sed to interpret this result as normal/abnor mal. Lab Interpretation (test Normal code = 65840-9) [facility] [id number] 21:24:00 Test Item Value Reference Range Interpretation Comments POCT PREG (test code = 1605) Negative On board controls acceptable with C Yes Line (test code = 3574) POCT PREG LOT # (test code = 3575) POCT PREG TEST DATE (test code = 3576) [facility] [id number] 21:24:00 Test Item Value Reference Range Interpretation Comments POCT PREG (test code = 1605) Negative On board controls acceptable with C Yes Line (test code = 3574) POCT PREG LOT # (test code = 3575) POCT PREG TEST DATE (test code = 3576) [facility] [id number] 22:25:00 Test Item Value Reference Range Interpretation Comments POCT PREG (test code = 1605) Negative On board controls acceptable with C Yes Line (test code = 3574) POCT PREG LOT # (test code = 3575) POCT PREG TEST DATE (test code = 3576) [facility] [id number] 22:25:00 Test Item Value Reference Range Interpretation Comments POCT PREG (test code = 1605) Negative On board controls acceptable with C Yes Line (test code = 3574) POCT PREG LOT # (test code = 3575) POCT PREG TEST DATE (test code = 3576) [facility] [id number] 19:40:00 Test Item Value Reference Range Interpretation Comments POCT PREG (test code = 1605) Negative On board controls acceptable with C Yes Line (test code = 3574) POCT PREG LOT # (test code = 3575) POCT PREG TEST DATE (test code = 3576) [facility] [id number] 19:40:00 Test Item Value Reference Range Interpretation Comments POCT PREG (test code = 1605) Negative On board controls acceptable with C Yes Line (test code = 3574) POCT PREG LOT # (test code = 3575) POCT PREG TEST DATE (test code = 3576) [facility]
[2023-04-13] MEDS ORDERED: KETOROLAC 30 MG/ML INJ ONE (01:11)
[2023-04-13] MEDS ORDERED: NA CHLORIDE 0.9% 1,000 ML ONE (01:11)
[2023-04-13 01:13] LABS: Absolute Lymphocytes (CBC) 4.2 K/uL (0.7-4.9); Hematocrit 35.7 % (36.0-45.0); Lymphocytes % 30.6 % (15.3-44.8); MCV 86.9 fL (80-100); MPV 6.7 fL (7.6-11.3); Platelets 396 thou/uL (152-406); RBC Red Blood Cell Count 4.11 M/uL (3.86-4.86)
[2023-04-13 01:22] LABS: Albumin 3.2 g/dL (3.4-5.0); Bilirubin Total 0.2 mg/dL (0.2-1.0); Potassium 3.9 mEq/L (3.5-5.1); Protein, Total 7.1 g/dL (6.4-8.2)
[2023-04-13 02:24] LABS: Specific Gravity 1.027 (1.005-1.030)
[2023-04-13 02:52] LABS: Specific Gravity 1.026 (1.005-1.030); Urine Bacteria None Seen /HPF (<20); Urine Bilirubin NEGATIVE (Negative); Urine Blood Trace (Negative); Urine Clarity Clear (Clear); Urine Color Light-Yellow (Yellow); Urine Glucose NEGATIVE (Negative); Urine Mucus Slight /HPF (None Seen); Urine Protein NEGATIVE (Negative); Urine Urobilinogen Normal (Normal); Urine pH 5.5 (5.0-7.0)
--- NOTE | 2023-04-13 04:00 | EDPHYS ---
Physician Documentation [facility] Name: Mary Donovan Age: 22 yrs Sex: Female : 2000 Arrival Date: 04/13/2023 Time: 00:27 Bed 7 Private MD: ED Physician Malik Varner HPI: 04/13 01:42 This 22 yrs old Female presents to ER via Ambulatory with complaints of kb Abdominal Pain. 01:42 The patient presents with abdominal pain in the lower abdomen. Onset: The kb symptoms/episode began/occurred yesterday. The symptoms do not radiate. Associated signs and symptoms: none. The symptoms are described as constant. Modifying factors: The symptoms are alleviated by nothing, the symptoms are aggravated by pressure. Severity of pain: At its worst the pain was moderate in the emergency department the pain is unchanged. The patient has not experienced similar symptoms in the past. The patient has not recently seen a physician. Historical: - Allergies: 00:41 No Known Allergies; pf1 - PMHx: 00:41 Asthma; pf1 - PSHx: 00:41 right hand; pf1 - Immunization history:: Adult Immunizations unknown. - Social history:: Smoking status: Patient denies any tobacco usage or history of. ROS: 01:41 Constitutional: Negative for fever, chills, and weight loss, kb 01:41 Abdomen/GI: Positive for abdominal pain, Negative for nausea, vomiting, and diarrhea, 01:41 All other systems are negative, Exam: 01:41 Constitutional: This is a well developed, well nourished patient who is awake, alert, kb and in no acute distress. Head/Face: Normocephalic, atraumatic. ENT: Moist Mucous membranes Cardiovascular: Regular rate Respiratory: Respirations even and unlabored. No increased work of breathing. Talking in full sentences Skin: Warm, dry with normal turgor. Normal color. MS/ Extremity: Pulses equal, no cyanosis. Neurovascular intact. Full, normal range of motion. Neuro: Awake and alert, GCS 15, oriented to person, place, time, and situation. Moves all extremities. Normal gait. 01:41 Abdomen/GI: Inspection: abdomen appears normal, Bowel sounds: normal, Palpation: soft, in all quadrants, mild abdominal tenderness, in the right lower quadrant, moderate abdominal tenderness, in the left lower quadrant, Vital Signs: 00:39 BP 124 / 82; Pulse 95; Resp 18 S; Temp 98.7(O); Pulse Ox 99% on R/A; Weight 81.19 kg pf1 (R); Height 5 ft. 0 in. (R); Pain 10/10; 03:39 BP 97 / 55; Pulse 63; Resp 16; Pulse Ox 100% on R/A; rv 00:39 Body Mass Index 34.96 (81.19 kg, 152.4 cm) pf1 00:39 Pain Scale: Adult pf1 Heath Coma Score: 03:39 Eye Response: spontaneous(4). Motor Response: obeys commands(6). Verbal Response: rv oriented(5). Total: 15. MDM: 00:44 Patient medically screened. kb 01:42 Data reviewed: vital signs, nurses notes. kb 02:13 Transition of care: After a detail discussion of the patient's case, care is kb transferred to Malik Varner MD. 03:58 ED course: She just and is negative and laboratory values are within normal limits sp3 except WBC count of 13. Patient's pain is improved and she is alert and oriented in no acute distress. 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 No critical or emergent diagnosis is present.. 04/13 00:46 Order name: CBC with Diff; Complete Time: 01:16 kb 04/13 00:46 Order name: CMP; Complete Time: 01:22 kb 04/13 00:46 Order name: Lipase; Complete Time: 01:22 kb 04/13 00:46 Order name: Test, Urine; Complete Time: 02:57 kb 04/13 00:46 Order name: Urinalysis w/ reflexes; Complete Time: 02:57 kb 04/13 00:46 Order name: CT Abd/Pelvis - IV Contrast Only; Complete Time: 16:26 kb 04/13 00:46 Order name: IV Saline Lock; Complete Time: 00:57 kb 04/13 00:46 Order name: Labs collected and sent; Complete Time: 00:57 kb Administered Medications: 01:01 Drug: NS 0.9% IV 1000 ml IV at 1 bolus Per protocol; 1000 mL bolus Route: IV; Rate: 1 rv bolus; Site: right forearm; 04:05 Follow up: IV Status: Completed infusion; IV Intake: 1000ml bp 01:01 Drug: TORadol - Ketorolac IVP 15 mg IVP once Route: IVP; Site: right forearm; rv 04:05 Follow up: Response: No adverse reaction bp Disposition: 03:58 Co-signature as Attending Physician, Malik Varner MD I agree with the assessment and sp3 plan of care. I reviewed the patient's care provided by Advanced Practice Provider \T\ agree w/ the diagnosis \T\ care plan. I personally saw the pt \T\ performed a substantive portion of the visit, incldng all aspects of the (History/Exam/Medical Decision Making). Disposition Summary: 04/13/23 03:59 Discharge Ordered Notes: Location: Home sp3 Condition: Stable sp3 Diagnosis - Abdominal pain sp3 Followup: sp3 - With: Private Physician - When: Upon discharge from the Emergency Department - Reason: Continuance of care Discharge Instructions: - Discharge Summary Sheet sp3 - Abdominal Pain, Adult sp3 Forms: - Medication Reconciliation Form sp3 - Thank You Letter sp3 - Antibiotic Education sp3 - Prescription Opioid Use sp3 - Patient Portal Instructions sp3 - Leadership Thank You Letter sp3 Signatures: Dispatcher [employer] Ncihelle Acevedo, JAMIE-C [employer]-Lee Springer, RN RN rv Malik Varner MD MD sp3 Tali Lopes RN RN pf1 Vinay Gerard RN bp
--- NOTE | 2023-04-13 04:00 | ER ---
Nurse's Notes [facility] Name: Mary Donovan Age: 22 yrs Sex: Female : 2000 Arrival Date: 04/13/2023 Time: 00:27 Bed 7 Private MD: Diagnosis: Abdominal pain Presentation: 04/13 00:39 Chief complaint: Patient states: generalized abdominal pain onset this morning. Pt pf1 states that the pain is a twisting pain and feels like the pain is worse in her upper abdomen. Pt denies and nausea, vomiting or diarrhea. Pt states that the pain is persistent and nothing makes the pain better. Coronavirus screen: Vaccine status: Patient reports receiving the 2nd dose of the covid vaccine. Client denies travel out of the [place] in the last 14 days. Ebola Screen: Patient denies travel to an Ebola-affected area in the 21 days before illness onset. No symptoms or risks identified at this time. Initial Sepsis Screen: Does the patient meet any 2 criteria? No. Patient's initial sepsis screen is negative. Does the patient have a suspected source of infection? No. Patient's initial sepsis screen is negative. Risk Assessment: Do you want to hurt yourself or someone else? Patient reports no desire to harm self or others. Onset of symptoms was April 13, 2023. 00:39 Method Of Arrival: Ambulatory pf1 00:39 Acuity: JOSE 3 pf1 Triage Assessment: 00:42 General: Appears in no apparent distress. comfortable, Behavior is calm, cooperative. pf1 Pain: Complains of pain in abdomen Pain currently is 10 out of 10 on a pain scale. Quality of pain is described as stabbing, Pain began suddenly, Is continuous, Alleviated by nothing. Neuro: No deficits noted. Level of Consciousness is awake, alert, obeys commands, Oriented to person, place, time, situation. Respiratory: No deficits noted. Airway is patent Respiratory effort is even, unlabored, Respiratory pattern is regular, symmetrical. GI: Reports lower abdominal pain, upper abdominal pain. Historical: - Allergies: 00:41 No Known Allergies; pf1 - PMHx: 00:41 Asthma; pf1 - PSHx: 00:41 right hand; pf1 - Immunization history:: Adult Immunizations unknown. - Social history:: Smoking status: Patient denies any tobacco usage or history of. Screenin:00 [facility] ED Fall Risk Assessment (Adult) History of falling in the last 3 months, rv including since admission No falls in past 3 months (0 pts) Score/Fall Risk Level 0 - 2 = Low Risk Oriented to surroundings, Maintained a safe environment, Educated pt \T\ family on fall prevention, incl call for assistance when getting out of bed, Assessed \T\ reinforced patient's understanding of fall precautions, Provided non-skid footwear, Hourly rounding (assess needs \T\ fall precautionary measures) done, Used ambulatory aids as needed (educated on \T\ assisted with), Used gait belt as appropriate. Abuse screen: Denies threats or abuse. Denies injuries from another. Nutritional screening: No deficits noted. Tuberculosis screening: No symptoms or risk factors identified. Assessment: 01:00 General: Appears comfortable, Behavior is calm, cooperative. Pain: Complains of pain in rv abdomen. Neuro: Level of Consciousness is awake, alert, obeys commands, Oriented to person, place, time, situation. Cardiovascular: Capillary refill < 3 seconds Patient's skin is warm and dry. Respiratory: Airway is patent Respiratory effort is even, unlabored. GI: Abdomen is round non-distended, Bowel sounds present X 4 quads. Abd is soft and non tender X 4 quads. : No signs and/or symptoms were reported regarding the genitourinary system. Derm: Skin is intact. 03:40 Reassessment: Patient and/or family updated on plan of care and expected duration. Pain rv level reassessed. Patient is alert, oriented x 3, equal unlabored respirations, skin warm/dry/pink. Patient states feeling better. Vital Signs: 00:39 BP 124 / 82; Pulse 95; Resp 18 S; Temp 98.7(O); Pulse Ox 99% on R/A; Weight 81.19 kg pf1 (R); Height 5 ft. 0 in. (R); Pain 10/10; 03:39 BP 97 / 55; Pulse 63; Resp 16; Pulse Ox 100% on R/A; rv 00:39 Body Mass Index 34.96 (81.19 kg, 152.4 cm) pf1 00:39 Pain Scale: Adult pf1 Moriarty Coma Score: 03:39 Eye Response: spontaneous(4). Motor Response: obeys commands(6). Verbal Response: rv oriented(5). Total: 15. ED Course: 00:35 Patient arrived in ED. gm2 00:40 Nichelle Lizama FNP-C is [facility]. kb 00:40 Malik Varner MD is Attending Physician. kb 00:41 Triage completed. pf1 00:43 Arm band placed on Patient placed in an exam room, on a stretcher. pf1 00:47 Lee Escalera RN is Primary Nurse. rv 01:00 Patient has correct armband on for positive identification. Provided Education on: GALL rv BLADDER. 01:01 Inserted saline lock: 20 gauge in right forearm, using aseptic technique. Blood rv collected. 03:10 CT Abd/Pelvis - IV Contrast Only In Process Unspecified. EDMS 03:42 No provider procedures requiring assistance completed. rv 04:05 IV discontinued, intact, bleeding controlled, No redness/swelling at site. Pressure bp dressing applied. Administered Medications: 01:01 Drug: NS 0.9% IV 1000 ml IV at 1 bolus Per protocol; 1000 mL bolus Route: IV; Rate: 1 rv bolus; Site: right forearm; 04:05 Follow up: IV Status: Completed infusion; IV Intake: 1000ml bp 01:01 Drug: TORadol - Ketorolac IVP 15 mg IVP once Route: IVP; Site: right forearm; rv 04:05 Follow up: Response: No adverse reaction bp Medication: 03:42 VIS not applicable for this client. rv Intake: 04:05 IV: 1000ml; Total: 1000ml. bp Outcome: 03:59 Discharge ordered by . sp3 04:05 Discharged to home ambulatory, bp 04:05 Condition: stable 04:05 Discharge instructions given to patient, Instructed on discharge instructions, follow up and referral plans. Demonstrated understanding of instructions, follow-up care, 04:06 Patient left the ED. bp Signatures: Dispatcher [employer] EDMS Nichelle Lizama FNP-C FNP-Vinay Perkins RN RN bp Lee Escalera, RN RN rv Malik Varner MD MD sp3 Tali Lopes RN RN pf1 Laina Moura gm2
[2023-04-13 04:15] VITALS: TEMP 98.7
[2023-04-13 04:20] VITALS: BP 97/55; O2SAT 100
--- NOTE | 2023-04-13 10:57 | RAD REPORT ---
EXAM DESCRIPTION: Abdomen Pelvis W Contrast CLINICAL HISTORY: ABD PAIN TECHNIQUE: Contiguous axial images obtained through the abdomen and pelvis following the uneventful administration of IV contrast. Coronal and sagittal reformatted images were provided. This exam was performed according to our departmental dose-optimization program, which includes autom ated exposure control, adjustment of the mA and/or kV according to patient size and/or use of iterati ve reconstruction technique. COMPARISON: April 2020. FINDINGS: Lung bases: Clear Liver: Mild diffuse fatty infiltration. Gallbladder and biliary system: Unremarkable Pancreas: Unremarkable Spleen: Unremarkable Adrenals: Unremarkable Kidneys: Normal renal cortical enhancement. No calculi. No hydronephrosis. GI: No obstruction. No appreciable mucosal thickening. Appendix: No findings to suggest acute appendicitis. Urinary bladder: Unremarkable Reproductive: Involuting follicle in the right ovary. Lymph nodes: No pathologically enlarged lymph nodes. Peritoneum: No focal fluid collection. No free air. Vessels: No abdominal aortic aneurysm. Abdominal wall: Unremarkable Bones: Unremarkable IMPRESSION: 1. No acute intra-abdominal or pelvic disease. Electronically signed by: Sukhjinder Kessler MD 04/13/2023 3:49 AM CDT Due to temporary technical issues with the PACS/Fluency reporting system, reports are being signed by the in house radiologist without review as a courtesy to ensure prompt reporting. The interpreting r adiologist is fully responsible for the content of the report.
== END 2023-04-13 04:06 | disposition home or self-care (01) ==
LOC: ER 00:27
DX: R10.30 Lower abdominal pain, unspecified (principal)
CPT/HCPCS: 36415; 74177; 80053; 81001; 81025; 83690; 85025; 96361; 96374; 99284; J7030; Q9967

== ENCOUNTER 2024-10-27 12:28 | Emergency (ER) | payer OTHER, SELFPAY ==
--- OUTSIDE RECORDS SUMMARY | 2024-10-27 12:37 | XMS REPORT | Continuity of Care Document ---
Author Name Unknown Address [address] [facility] [address] [place] [address] [facility] [place] Address [address] [facility] [address] [place] [address] Care Team Providers Care Division Order Technician Name Role Phone Simona Roche Primary Care Physician No, PCP Attending Clinician Unavailable [facility] Attending Clinician Unavailable [facility] Attending Clinician Unavailable MELA GUERRERO Attending Clinician Unavailable MELA GEURRERO Attending Clinician Unavailable Doctor Unassigned, [place] Attending Clinician U navailable Lab, Ang - Db Attending Clinician Unavailable Mela Guerrero MD Attending Clinician [phone] Kvng Hsu MD Attending Clinician [phone], [facility] Attending Clinician Unavailable Deirdre AGUILAR, TELEPHONE INFORMATION CLERK, R Attending Clinician Felicia Lawton MD Attending Clinician Pob, [facility] Main Attending Clinician Unavailabl e Lab, Ang - Db Attending Clinician Unavailable WENDY HOWE Attending Clinician WENDY Ng Attending Clinician Ritu Francisco Attending Clinician + JEFFERSON PINEDA Attending Clinician Unav ailable Ultrasound, Wojciech-Mfkimberly Attending Clinician Unavaila Jefferson Juarez MD Attending Clinician + THEODORE TUBBS Attending Clinician Unavailable RITU MAR Attending Clinician Unavail able NORMAN CHRISTOPHER Attending Clinician Unavailable NORMAN CHRISTOPHER Attending Clinician Unavailable Norman Christopher MD Attending Clinician [phone] Adrienne Hart CNM Attending Clinician [phone] ADRIENNE HART Attending Clinician Unavaila milady Doctor Unassigned, [place] Attending Clinician U navailable Lab, Ang-Rmchp Attending Clinician Unavailable RADIOLOGY Attending Clinician Unavailable Radiology Attending Clinician Unavailable DR JOSE ELLISON Attending Clinician Unavailabl e Jah Cueto DO Attending Clinician [phone] Peggy Solorio Attending Clinician + [phone] PEGGY DALE Attending Clinician Unavailab justina Du Simona ALVA Attending Clinician + [phone] Provider, Indy Temp Attending Clinician Radha SIMONA Sauceda Attending Clinician Unavailab KV[facility] Fam Admitting Clinician Unavailable WENDY HOWE Admitting Clinician DR JOSE Tatum Admitting Clinician Unavailabl e Payers Payer Name Policy Type Policy Number Effective Date Expirati on Date Source [facility] STAR [id number] 2023 00:00:00 [place] [id number] 2023 00:00:00 2023 00:00:00 RODRIGO STAR [id number] 2023 00:00:00 AMANDEEP STAR [id number] 2022 00:00:00 Problems Condition Name Condition Details Condition Category Status Onset Date Resolution Date Last Treatment Date Treating Clinician Comments Source Paresthesi a of both hands Paresthesi a of both hands Disease Active 2023-07 00:00: 00 [facility] Bilateral hand numbness Bilateral hand numbness Disease Active 2023-0717 00:00: 00 [facility] Obesity (BMI 30-39.9) Obesity (BMI 30-39.9) Disease Active 01-13 00:00: 00 [facility] Rubella non-immune status, antepartum Rubella non-immune status, antepartum Disease Active 2022-07 00:00: 00 Overview: Formattin g of this note might be different from the original. 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 Never on meds [facility] Obesity (BMI 30-39.9) Obesity (BMI 30-39.9) Disease Active 03-22 00:00: 00 [facility] Overweight (BMI 25.0-29.9) Overweight (BMI 25.0-29.9) Disease Active 03-22 00:00: 00 [facility] Contractur e of right ankle Contractur e of right ankle Problem [facility] Plantar fascial fibromatos is Plantar fascial fibromatos is Problem [facility] 39 weeks gestation of 39 weeks gestation of Disease Resolve d 01-13 00:00: 00 2024-02-17 00:00:00 2024-02-17 11:30:43 [facility] Positive GBS test Positive GBS test Disease Resolve d 01-13 00:00: 00 2024-02-17 00:00:00 2024-02-17 11:30:45 [facility] Liveborn infant, of [place] , born in hospital by vaginal delivery Liveborn , of [place] , born in hospital by vaginal delivery Disease Resolve d 01-13 00:00: 00 2024-02-17 00:00:00 2024-02-17 11:30:48 [facility] Uterine size-date discrepanc y in third trimester Uterine size-date discrepanc y in third trimester Disease Resolve d 2023-0 5-17 00:00: 00 2024-02-17 00:00:00 2024-02-17 11:30:34 [facility] Headache in Headache in Disease Resolve d 0 1-14 00:00: 00 2024-02-17 00:00:00 2024-02-17 11:30:42 [facility] Abnormal maternal glucose tolerance, antepartum Abnormal maternal glucose tolerance, antepartum Disease Resolve d 2022-07 2-15 00:00: 00 2024-02-17 00:00:00 2024-02-17 11:30:41 Overview: Formattin g of this note might be different from the original. Passed [id number] gtt, repeat at 26wks [facility] Supervisio n of high-risk Supervisio n of high-risk Disease Resolve d 2022-07 2-13 00:00: 00 2024-02-17 00:00:00 2024-02-17 11:30:37 [facility] Multiparit y Multiparit y Disease Resolve d 2022-07 2-13 00:00: 00 2024-02-17 00:00:00 2024-02-17 11:30:36 [facility] Obesity in Obesity in Disease Resolve d 2017-0 9-12 00:00: 00 2024-02-17 00:00:00 2024-02-17 11:30:36 [facility] Declines flu vaccine Declines flu vaccine Disease Resolve d 1-14 00:00: 00 2023-10-14 00:00:00 2023-10-14 14:51:52 [facility] Chlamydia trachomati s infection of lower genitourin andrew sites Chlamydia trachomati s infection of lower genitourin andrew sites Disease Resolve d 2019-0 6-15 00:00: 00 2023-07-21 00:00:00 2023-07-21 12:49:44 [facility] Vaginal irritation Vaginal irritation Disease Resolve d 2019-0 4-23 00:00: 00 2023-07-21 00:00:00 2023-07-21 12:47:57 [facility] Corpus luteum cyst or hematoma Corpus luteum cyst or hematoma Disease Resolve d 03-22 00:00: 00 2023-07-21 00:00:00 2023-07-21 12:49:41 [facility] Pain pelvic Pain pelvic Disease Resolve d 03-22 00:00: 00 2023-07-21 00:00:00 2023-07-21 12:47:55 [facility] Other general counseling and advice for contracept veronica management Other general counseling and advice for contracept veronica management Disease Resolve d 10-07 00:00: 00 2023-06-22 00:00:00 2023-06-22 14:04:56 [facility] Amenorrhea Amenorrhea Disease Resolve d 09-09 00:00: 00 2023-06-22 00:00:00 2023-06-22 14:05:25 [facility] Nexplanon in place Nexplanon in place Disease Active 622 00:00: 00 2023-06-22 00:00:00 2023-06-22 14:04:51 [facility] Screening examinatio n for STD (sexually transmitte d disease) Screening examinatio n for STD (sexually transmitte d disease) Disease Resolve d 03-22 00:00: 00 2023-06-22 00:00:00 2023-06-22 14:05:16 [facility] Encounter for contracept veronica management , unspecifie d type Encounter for contracept veronica management , unspecifie d type Disease Resolve d 04-03 00:00: 00 2020-10-07 00:00:00 2020-10-07 16:13:19 [facility] Allergies, Adverse Reactions, Alerts Allergy Name Allergy Type Status Severity Reaction(s) Onset Date Inactive Date Treating Clinician Comments Source No Known Allergie s DA Active [facility] NO KNOWN ALLERGIE S Drug Class Active [facility] Social History Social Habit Start Date Stop Date Quantity Comments Source ASSERTION 2023-04-30 00:00:00 [facility] History of Tobacco Use [facility] Alcoholic beverage intake 2023-11-14 00:00:00 2023-11-14 00:00:00 Ex-drinker (finding) [facility] Tobacco use and exposure 2023-11-14 00:00:00 2023-11-14 00:00:00 Smokeless tobacco non-user [facility] Alcohol intake 2023-10-14 00:00:00 2023-10-14 00:00:00 Ex-drinker (finding) [facility] History of Social function 2023-07-21 00:00:00 2023-07-21 00:00:00 [facility] Exposure to SARS-CoV-2 (event) 2022-07-11 00:00:00 2022-07-21 13:00:00 Not sure [facility] Tobacco Comment 2022-07-21 00:00:00 2022-07-21 00:00:00 on social occassion [facility] Alcohol Comment 2018-03-22 00:00:00 2018-03-22 00:00:00 socially [facility] Smoking Status Start Date Stop Date Source Ex-smoker 2023-11-14 00:00:00 2023-11-14 00:00:00 [facility] Occasional tobacco smoker 2022-07-21 00:00:00 [facility] Medications Ordered Medication Name Filled Medication Name Start Date Stop Date Current Medication? Ordering Clinician Indication Dosage Frequency Signature (SIG) Comments Components Source nystatin 100,000 unit/gram powder 2023-07 00:00: 00 07-21 05:59 :00 No [id number] Apply to area(s) 2 (two) times daily for 10 days. [facility] ketoconazol e 2 % cream 2023-07 2- 00:00: 00 07-10 00:00 :00 No [id number] Apply to area(s) 2 (two) times daily. [facility] Naproxen 500 MG Naproxen 500 MG 2023-07 0 00:00: 00 No BID Naproxen 500 MG etonogestre L (NEXPLANON) implant 68 mg 02-16 17:45: 00 02-16 16:50 :00 No [id number] 68mg 68 mg, Subdermal, ONCE NOW, 1 dose, On Tue02/17/24 at 1245, Routine, Use approved by: PRODUCT INTRODUCTION MANAGER [facility] ity [facility] witch [place] (TUCKS) 50 % topical pad 01-14 05:29: 29 Yes [facility] ity [facility] rho(D) immune globulin (RHOPHYLAC) injection 300 mcg 01-14 05:20: 03 Yes 300ug [facility] ity [facility] HYDROcodone -acetaminop hen (NORCO 5) 5-325 mg tablet 1 tablet 01-14 05:19: 57 Yes 1{tbl} 1 tablet, Oral, Q6HPRN, Starting on Tue01/15/24 at 0019, Until Discontinu ed, Routine, Pain (scale 7-10) [facility] ibuprofen (IBU) tablet 600 mg 01-14 05:19: 57 Yes 600mg 600 mg, Oral, Q6HPRN, Starting on Tue01/15/24 at 0019, Until Discontinu ed, Routine, Pain (scale 4-6) [facility] acetaminoph en (TYLENOL) tablet 650 mg 01-14 05:19: 57 Yes 650mg [facility] ity [facility] diphenhydrA MINE (BENADRYL) tablet 25 mg 01-14 05:19: 57 Yes 25mg [facility] ity [facility] ondansetron (ZOFRAN (PF)) injection 4 mg 01-14 05:19: 57 Yes 4mg [facility] ity [facility] simethicone (GAS RELIEF (SIMETHICON E)) chewable tablet 160 mg 01-14 05:19: 57 Yes 160mg [facility] ity [facility] docusate (COLACE) capsule 200 mg 01-14 05:19: 57 Yes 200mg [facility] magnesium hydroxide (MILK OF MAGNESIA) 400 mg/5 mL suspension 30 mL 01-14 05:19: 57 Yes 30mL [facility] benzocaine- menthol (DERMOPLAST ) 20-0.5 % topical spray 01-14 05:19: 57 Yes Topical, PRN, Starting on 01/15/24 at 0019, Until Discontinu ed, Routine, Perineum discomfort [facility] vitamin w/FA tablet 01-14 00:00: 00 06-26 00:00 :00 No [id number] 1{tbl} Take 1 tablet by mouth in the morning. [facility] docusate 100 mg capsule 01-14 00:00: 00 06-26 00:00 :00 No [id number] 200mg Take 2 capsules by mouth once daily as needed for Constipati on. [facility] ferrous sulfate 325 mg (65 mg iron) tablet 01-14 00:00: 00 06-26 00:00 :00 No [id number] 325mg Take 1 tablet by mouth in the morning. [facility] ibuprofen 800 mg tablet 01-14 00:00: 00 06-26 00:00 :00 No [id number] 800mg Take 1 tablet by mouth every 8 (eight) hours as needed (pain). Take with food or milk. [facility] oxytocin (PITOCIN) 30 units in NS 500 mL IV infusion 01-13 19:33: 45 01-14 05:29 :30 No 2mU/min at 2-40 mL/hr, IV Infusion, TITRATE, Starting on 01/14/24 at 1433, Until 01/15/24 at 0029, SUMI [facility] PIB fentaNYL-ro pivacaine 2 mcg/mL-0.1 % (PF) in NS 200 mL epidural infusion RTU 01-13 15:43: 00 01-14 00:55 :07 No Epidural, ONCE INTRA PROCEDURE, Starting on 01/14/24 at 1043, Until 01/14/24 at 1955, Routine, Intra-op [facility] it[facility] lidocaine-e pinephrine (XYLOCAINE W/EPINEPHRI NE) 2 %-1:200,000 injection 01-13 15:42: 00 01-14 00:55 :07 No Epidural, ONCE INTRA PROCEDURE, Starting on 01/14/24 at 1042, Until 01/14/24 at 195, Routine, Intra-op [facility] it[facility] lidocaine 1% (XYLOCAINE) 100 mg/10 mL (1 %) injection 01-13 15:36: 00 01-14 00:55 :07 No Infiltrati on, ONCE INTRA PROCEDURE, Starting on 01/14/24 at 1036, Until 01/14/24 at 1954, Routine, Intra-op [facility] ity [facility] miSOPROStol (CYTOTEC) quarter-tab let 25 mcg 01-13 10:15: 00 01-14 05:29 :30 No 25ug 25 mcg, Oral, Q2H, First dose (after last modificati on) on 01/14/24 at 0515, Until Discontinu ed, Routine Univers [facility] lactated ringers IV infusion 500 mL 01-13 09:15: 00 01-13 09:35 :00 No 500mL at 999 mL/hr, 500 mL, IV Infusion, ONCE, 1 dose, On 01/14/24 at 0415, Routine [facility] lactated ringers IV infusion 500 mL 01-13 09:06: 26 01-14 05:29 :29 No 500mL at 999 mL/hr, 500 mL, IV Infusion, PRN - SEE INSTRUCTIO NS, Starting on 01/14/24 at 0406, Until 01/15/24 at 0029, Routine [facility] FENTanyl PF (SUBLIMAZE (PF)) injection 100 mcg 01-13 09:06: 26 01-14 05:29 :30 No 100ug 100 mcg, Slow IV Push, Q1HPRN, Starting on 01/14/24 at 0406, Until 01/15/24 at 0029, Routine, contractio n pain without an epidural and SVE < 8 cm and Cat I strip [facility] D5W-LR IV infusion 1,000 mL 01-13 09:06: 26 01-14 05:29 :29 No 1000mL at 1-125 mL/hr, IV Infusion, TITRATE, Starting on 01/14/24 at 0406, Until 01/15/24 at 0029, Routine [facility] vit no.124/iron /folic ( VITAMIN ORAL) 12-22 14:56: 38 12-22 00:00 :00 No Take by mouth. [facility] FOLIC ACID ORAL 12-22 14:56: 23 12-22 00:00 :00 No Take by mouth. [facility] vit no.124/iron /folic ( VITAMIN ORAL) 10-13 14:29: 54 Yes Take by mouth. [facility] ketoconazol e 2 % cream 10-13 00:00: 00 12-22 00:00 :00 No [id number] Apply to area(s) 2 (two) times daily. [facility] triamcinolo ne acetonide 0.1 % cream 10-13 00:00: 00 12-22 00:00 :00 No [id number] Apply to area(s) 2 (two) times daily. [facility] PRENATA 29 mg iron- 1 mg per tablet 2022-07 00:00: 00 01-14 00:00 :00 No [id number] 1{tbl} TAKE 1 TABLET BY MOUTH EVERY DAY [facility] FOLIC ACID ORAL 2022-07 13:53: 39 Yes Take by mouth. [facility] unq13-ixmf- folic acid 29 mg iron- 1 mg per tablet 2022-07 00:00: 00 06-24 00:00 :00 No [id number] 1{tbl} Take 1 tablet by mouth daily. [facility] iopamidol (ISOVUE 370-500 mL) injection 79 mL 08-26 22:00: 00 08-26 21:13 :00 No [id number] 79mL 79 mL, Intravenou s, ONCE, 1 dose, On Arabella 08/26/22 at 1600, Routine [facility] No known medications 1-11 13:07: 59 No No known medication s [facility] No known medications 4-29 09:13: 33 No [facility] medroxyPROG ESTERone (PROVERA) 10 mg tablet 3-31 00:00: 00 10-19 04:59 :00 No [id number] 10mg Take 1 tablet by mouth daily for 10 days. [facility] ampicillin 500 mg capsule 3-05 00:00: 00 09-23 04:59 :00 No [id number] 500mg Take 1 capsule by mouth 4 (four) times daily for 10 days. [facility] azithromyci n 500 mg tablet 15 00:00: 00 12-24 04:59 :00 No [id number] 1000mg Take 2 tablets by mouth once now for 1 dose. [facility] No known medications No Un [facility] ity [facility] No known medications No Un [facility] ity [facility] No known medications No Un [facility] ity [facility] No known medications No Un [place] ity [facility] No known medications No Un [place] ity [facility] No known medications No Un [place] ity [facility] No known medications No Un [place] ity [facility] No known medications No Un [place] ity [facility] No known medications No Un [place] ity [facility] No known medications No Un [place] ity [facility] No known medications No Un [place] ity [facility] No known medications No Un [place] ity [facility] No known medications No Un [place] ity [facility] No known medications No Un [facility] ity [facility] No known medications No Un [place] ity [facility] No known medications No Un [place] ity [facility] No known medications No Un [facility] ity [facility] No known medications No Un stanley [facility] No known medications No Un stanley [facility] Immunizations Ordered Immunization Name Filled Immunization Name Date Status Comments Source TDAP 2023-11-14 00:00:00 Completed [facility] Influenza Virus Vaccine Quad IM, Preserv and ABX Free 6 MO-64 YRS (FLUCELVAX) 2023-10-14 00:00:00 Completed [facility] Influenza Virus Vaccine Quad IM, Preserv and ABX Free 6 MO-64 YRS (FLUCELVAX) 2022-07-21 00:00:00 Completed [facility] Influenza Virus Vaccine Quad IM, Preserv and ABX Free 6 MO-64 YRS 2022-07-21 00:00:00 Completed [facility] Influenza Virus Vaccine Quad IM, Preserv and ABX Free 6 MO-64 YRS 2022-07-21 00:00:00 Completed [facility] Influenza Virus Vaccine Quad IM, Preserv and ABX Free 6 MO-64 YRS 2022-07-21 00:00:00 Completed [facility] TDAP 2021-11-03 00:00:00 Completed SARS-COV-2 COVID-19 VACCINE - (MODERNA) 2020-10-14 00:00:00 Completed SARS-COV-2 COVID-19 VACCINE - (MODERNA) 2020-09-15 00:00:00 Completed [facility] SARS-COV-2 COVID-19 VACCINE - (MODERNA) 2020-09-15 00:00:00 Completed [facility] SARS-COV-2 COVID-19 VACCINE - (MODERNA) 2020-09-15 00:00:00 Completed [facility] SARS-COV-2 COVID-19 VACCINE - (MODERNA) 2020-09-15 00:00:00 Completed [facility] Influenza Virus Vaccine Quad .5 mL IM 6+ MO (FLUZONE/FLULAVAL/FL UARIX) 2017-04-22 00:00:00 Completed HEPATITIS A 2017-04-22 00:00:00 Completed IPV 2017-04-22 00:00:00 Completed MMR 2016-04-12 00:00:00 Completed IPV 2016-04-12 00:00:00 Completed Varicella (varivax)(chicken pox) 2016-04-12 00:00:00 Completed HEPATITIS A 2016-03-11 00:00:00 Completed Meningococcal Polysaccharide (groups A, C, Y and W-135) conjugate vaccine (MCV4P) 2016-03-11 00:00:00 Completed MMR 2016-03-11 00:00:00 Completed IPV 2016-03-11 00:00:00 Completed TDAP 2016-03-11 00:00:00 Completed Varicella (varivax)(chicken pox) 2016-03-11 00:00:00 Completed Hep B, Adol or Pedi Dosage 2015-02-10 00:00:00 Completed Hep B, Adol or Pedi Dosage 2014-07-15 00:00:00 Completed HPV 2014-07-15 00:00:00 Completed Tetanus/Diptheria 2011-05-20 00:00:00 Completed Tetanus/Diptheria 2011-04-19 00:00:00 Completed HPV 2009-12-13 00:00:00 Completed HPV 2009-01-10 00:00:00 Completed Pneumococcal 7 Conjugate, PCV7 (Prevnar7) 2000-05-24 00:00:00 Completed Hep B, Adol or Pedi Dosage 1999 00:00:00 Completed Hep B, Adol or Pedi Dosage 1999 00:00:00 Completed Influenza Virus Vaccine Quad IM, Preserv and ABX Free 6 MO-64 YRS (FLUCELVAX) Unknown Completed [facility] Influenza Virus Vaccine Quad .5 mL IM 6+ MO (FLUZONE/FLULAVAL/FL UARIX) Unknown Completed [facility] Meningococcal Polysaccharide (groups A, C, Y and W-135) conjugate vaccine (MCV4P) Unknown Completed [facility] Pneumococcal 7 Conjugate, PCV7 (Prevnar7) Unknown Completed [facility] SARS-COV-2 COVID-19 VACCINE - (MODERNA) Unknown Completed [facility] HEPATITIS A Unknown Completed [facility] Hep B, Adol or Pedi Dosage Unknown Completed [facility] HPV Unknown Completed [facility] MMR Unknown Completed [facility] IPV Unknown Completed [facility] Tetanus/Diptheria Unknown Completed [facility] TDAP Unknown Completed [facility] Varicella (varivax)(chicken pox) Unknown Completed [facility] Influenza Virus Vaccine Quad IM, Preserv and ABX Free 6 MO-64 YRS (FLUCELVAX) Unknown Completed [facility] SARS-COV-2 COVID-19 VACCINE - (MODERNA) Unknown Completed [facility] Influenza Virus Vaccine Quad .5 mL IM 6+ MO (FLUZONE/FLULAVAL/FL UARIX) Unknown Completed [facility] HEPATITIS A Unknown Completed [facility] Hep B, Adol or Pedi Dosage Unknown Completed [facility] HPV Unknown Completed [facility] Meningococcal Polysaccharide (groups A, C, Y and W-135) conjugate vaccine (MCV4P) Unknown Completed [facility] MMR Unknown Completed [facility] Pneumococcal 7 Conjugate, PCV7 (Prevnar7) Unknown Completed [facility] IPV Unknown Completed [facility] Tetanus/Diptheria Unknown [facility] Unknown Completed [facility] Varicella (varivax)(chicken pox) Unknown Completed [facility] Influenza Virus Vaccine Quad IM, Preserv and ABX Free 6 MO-64 YRS (FLUCELVAX) Unknown Completed [facility] SARS-COV-2 COVID-19 VACCINE - (MODERNA) Unknown Completed [facility] Influenza Virus Vaccine Quad .5 mL IM 6+ MO (FLUZONE/FLULAVAL/FL UARIX) Unknown Completed [facility] HEPATITIS A Unknown Completed [facility] Hep B, Adol or Pedi Dosage Unknown Completed [facility] HPV Unknown Completed [facility] Meningococcal Polysaccharide (groups A, C, Y and W-135) conjugate vaccine (MCV4P) Unknown Completed [facility] MMR Unknown Completed [facility] Pneumococcal 7 Conjugate, PCV7 (Prevnar7) Unknown Completed [facility] IPV Unknown Completed [facility] Tetanus/Diptheria Unknown [facility] TDAP Unknown Completed [facility] Varicella (varivax)(chicken pox) Unknown Completed [facility] Influenza Virus Vaccine Quad .5 mL IM 6+ MO (FLUZONE/FLULAVAL/FL UARIX) Unknown Completed [facility] Meningococcal Polysaccharide (groups A, C, Y and W-135) conjugate vaccine (MCV4P) Unknown Completed [facility] Pneumococcal 7 Conjugate, PCV7 (Prevnar7) Unknown Completed [facility] SARS-COV-2 COVID-19 VACCINE - (MODERNA) Unknown Completed [facility] HEPATITIS A Unknown Completed [facility] Hep B, Adol or Pedi Dosage Unknown Completed [facility] HPV Unknown Completed [facility] MMR Unknown Completed [facility] IPV Unknown Completed [facility] Tetanus/[facility]ria [facility] Varicella (varivax)(chicken pox) Unknown Completed [facility] Influenza Virus Vaccine Quad IM, Preserv and ABX Free 6 MO-64 YRS (FLUCELVAX) Unknown Completed [facility] Influenza Virus Vaccine Quad IM, Preserv and ABX Free 6 MO-64 YRS (FLUCELVAX) Unknown Completed [facility] SARS-COV-2 COVID-19 VACCINE - (MODERNA) Unknown Completed [facility] Influenza Virus Vaccine Quad .5 mL IM 6+ MO (FLUZONE/FLULAVAL/FL UARIX) Unknown Completed [facility] HEPATITIS A Unknown Completed [facility] Hep B, Adol or Pedi Dosage Unknown Completed [facility] HPV Unknown Completed [facility] Meningococcal Polysaccharide (groups A, C, Y and W-135) conjugate vaccine (MCV4P) Unknown Completed [facility] MMR Unknown Completed [facility] Pneumococcal 7 Conjugate, PCV7 (Prevnar7) Unknown Completed [facility] IPV Unknown Completed [facility] Tetanus/Diptheria [facility] Completed [facility] Varicella (varivax)(chicken pox) Unknown Completed [facility] Influenza Virus Vaccine Quad IM, Preserv and ABX Free 6 MO-64 YRS (FLUCELVAX) Unknown Completed [facility] SARS-COV-2 COVID-19 VACCINE - (MODERNA) Unknown Completed [facility] Influenza Virus Vaccine Quad .5 mL IM 6+ MO (FLUZONE/FLULAVAL/FL UARIX) Unknown Completed [facility] HEPATITIS A Unknown Completed [facility] Hep B, Adol or Pedi Dosage Unknown Completed [facility] HPV Unknown Completed [facility] Meningococcal Polysaccharide (groups A, C, Y and W-135) conjugate vaccine (MCV4P) Unknown Completed [facility] MMR Unknown Completed [facility] Pneumococcal 7 Conjugate, PCV7 (Prevnar7) Unknown Completed [facility] IPV Unknown Completed [facility] Tetanus/Diptheria [facility] Com[facility] Varicella (varivax)(chicken pox) Unknown Completed [facility] Influenza Virus Vaccine Quad .5 mL IM 6+ MO (FLUZONE/FLULAVAL/FL UARIX) Unknown Completed [facility] Meningococcal Polysaccharide (groups A, C, Y and W-135) conjugate vaccine (MCV4P) Unknown Completed [facility] Pneumococcal 7 Conjugate, PCV7 (Prevnar7) Unknown Completed [facility] Influenza Virus Vaccine Quad IM, Preserv and ABX Free 6 MO-64 YRS (FLUCELVAX) Unknown Completed [facility] SARS-COV-2 COVID-19 VACCINE - (MODERNA) Unknown Completed [facility] HEPATITIS A Unknown Completed [facility] Hep B, Adol or Pedi Dosage Unknown Completed [facility] HPV Unknown Completed [facility] MMR Unknown Completed [facility] IPV Unknown [facility]pleted [facility] Tetanus/Diptheria [facility] Completed [facility] Varicella (varivax)(chicken pox) Unknown Completed [facility] Influenza Virus Vaccine Quad IM, Preserv and ABX Free 6 MO-64 YRS (FLUCELVAX) Unknown Completed [facility] SARS-COV-2 COVID-19 VACCINE - (MODERNA) Unknown Completed [facility] Influenza Virus Vaccine Quad .5 mL IM 6+ MO (FLUZONE/FLULAVAL/FL UARIX) Unknown Completed [facility] HEPATITIS A Unknown Completed [facility] Hep B, Adol or Pedi Dosage Unknown Completed [facility] HPV Unknown Completed [facility] Meningococcal Polysaccharide (groups A, C, Y and W-135) conjugate vaccine (MCV4P) Unknown Completed [facility] MMR Unknown Completed [facility] Pneumococcal 7 Conjugate, PCV7 (Prevnar7) Unknown Completed [facility] IPV Unknown Completed [facility] Tetanus/Diptheria [facility] Completed [facility] Varicella (varivax)(chicken pox) Unknown Completed [facility] Influenza Virus Vaccine Quad IM, Preserv and ABX Free 6 MO-64 YRS (FLUCELVAX) Unknown Completed [facility] SARS-COV-2 COVID-19 VACCINE - (MODERNA) [facility]ine [facility] .5 mL IM 6+ MO (FLUZONE/FLULAVAL/FL UARIX) Unknown Completed [facility] HEPATITIS A Unknown Completed [facility] Hep B, Adol or Pedi Dosage Unknown Completed [facility] HPV Unknown Completed [facility] Meningococcal Polysaccharide (groups A, C, Y and W-135) conjugate vaccine (MCV4P) Unknown Completed [facility] MMR Unknown Completed [facility] Pneumococcal 7 Conjugate, PCV7 (Prevnar7) Unknown Completed [facility] IPV Unknown Completed [facility] Tetanus/Diptheria Unknown Completed Un [facility] TDAP Unknown Completed [facility] Varicella (varivax)(chicken pox) Unknown Completed [facility] Influenza Virus Vaccine Quad .5 mL IM 6+ MO (FLUZONE/FLULAVAL/FL UARIX) Unknown Completed [facility] Meningococcal Polysaccharide (groups A, C, Y and W-135) conjugate vaccine (MCV4P) Unknown Completed [facility] Pneumococcal 7 Conjugate, PCV7 (Prevnar7) Unknown Completed [facility] Influenza Virus Vaccine Quad IM, Preserv and ABX Free 6 MO-64 YRS (FLUCELVAX) Unknown Completed [facility] SARS-COV-2 COVID-19 VACCINE - (MODERNA) Unknown Completed [facility] HEPATITIS A Unknown Completed [facility] Hep B, Adol or Pedi Dosage Unknown Completed [facility] HPV Unknown Completed [facility] MMR Unknown Completed [facility] IPV Unknown Completed [facility] Tetanus/Diptheria Unknown [facility] Completed [facility] Varicella (varivax)(chicken pox) Unknown Completed [facility] Influenza Virus Vaccine Quad IM, Preserv and ABX Free 6 MO-64 YRS (FLUCELVAX) Unknown Completed [facility] SARS-COV-2 COVID-19 VACCINE - (MODERNA) Unknown Completed [facility] Influenza Virus Vaccine Quad .5 mL IM 6+ MO (FLUZONE/FLULAVAL/FL UARIX) Unknown Completed [facility] HEPATITIS A Unknown Completed [facility] Hep B, Adol or Pedi Dosage Unknown Completed [facility] HPV Unknown Completed [facility] Meningococcal Polysaccharide (groups A, C, Y and W-135) conjugate vaccine (MCV4P) Unknown Completed [facility] MMR Unknown Completed [facility] Pneumococcal 7 Conjugate, PCV7 (Prevnar7) Unknown Completed [facility] IPV Unknown Completed [facility] Tetanus/Diptheria [facility] Completed [facility] Varicella (varivax)(chicken pox) Unknown Completed [facility] Influenza Virus Vaccine Quad IM, Preserv and ABX Free 6 MO-64 YRS (FLUCELVAX) Unknown Completed [facility] SARS-COV-2 COVID-19 VACCINE - (MODERNA) Unknown Completed [facility] Influenza Virus Vaccine Quad .5 mL IM 6+ MO (FLUZONE/FLULAVAL/FL UARIX) Unknown Completed [facility] HEPATITIS A Unknown Completed [facility] Hep B, Adol or Pedi Dosage Unknown Completed [facility] HPV Unknown Completed [facility] Meningococcal Polysaccharide (groups A, C, Y and W-135) conjugate vaccine (MCV4P) Unknown Completed [facility] MMR Unknown Completed [facility] Pneumococcal 7 Conjugate, PCV7 (Prevnar7) Unknown Completed [facility] IPV Unknown Completed [facility] Tetanus/Diptheria Unknown [facility] Completed [facility] Varicella (varivax)(chicken pox) Unknown Completed [facility] Influenza Virus Vaccine Quad IM, Preserv and ABX Free 6 MO-64 YRS (FLUCELVAX) Unknown Completed [facility] SARS-COV-2 COVID-19 VACCINE - (MODERNA) Unknown Completed [facility] Influenza Virus Vaccine Quad .5 mL IM 6+ MO (FLUZONE/FLULAVAL/FL UARIX) Unknown Completed [facility] HEPATITIS A Unknown Completed [facility] Hep B, Adol or Pedi Dosage Unknown Completed [facility] HPV Unknown Completed [facility] Meningococcal Polysaccharide (groups A, C, Y and W-135) conjugate vaccine (MCV4P) Unknown Completed [facility] MMR Unknown Completed [facility] Pneumococcal 7 Conjugate, PCV7 (Prevnar7) Unknown Completed [facility] IPV Unknown Completed [facility] Tetanus/Diptheria Unknown [facility] Completed [facility] Varicella (varivax)(chicken pox) Unknown Completed [facility] Influenza Virus Vaccine Quad IM, Preserv and ABX Free 6 MO-64 YRS (FLUCELVAX) Unknown Completed [facility] SARS-COV-2 COVID-19 VACCINE - (MODERNA) Unknown Completed [facility] Influenza Virus Vaccine Quad .5 mL IM 6+ MO (FLUZONE/FLULAVAL/FL UARIX) Unknown Completed [facility] HEPATITIS A Unknown Completed [facility] Hep B, Adol or Pedi Dosage Unknown Completed [facility] HPV Unknown Completed [facility] Meningococcal Polysaccharide (groups A, C, Y and W-135) conjugate vaccine (MCV4P) Unknown Completed [facility] MMR Unknown Completed [facility] Pneumococcal 7 Conjugate, PCV7 (Prevnar7) Unknown Completed [facility] IPV Unknown Completed [facility] Tetanus/Diptheria Unknown [facility] Completed [facility] Varicella (varivax)(chicken pox) Unknown Completed [facility] Influenza Virus Vaccine Quad IM, Preserv and ABX Free 6 MO-64 YRS (FLUCELVAX) Unknown Completed [facility] SARS-COV-2 COVID-19 VACCINE - (MODERNA) Unknown Completed [facility] Influenza Virus Vaccine Quad .5 mL IM 6+ MO (FLUZONE/FLULAVAL/FL UARIX) Unknown Completed [facility] HEPATITIS A Unknown Completed [facility] Hep B, Adol or Pedi Dosage Unknown Completed [facility] HPV Unknown Completed [facility] Meningococcal Polysaccharide (groups A, C, Y and W-135) conjugate vaccine (MCV4P) Unknown Completed [facility] MMR Unknown Completed [facility] Pneumococcal 7 Conjugate, PCV7 (Prevnar7) Unknown Completed [facility] IPV Unknown Completed [facility] Tetanus/Diptheria [facility] Completed [facility] Varicella (varivax)(chicken pox) Unknown Completed [facility] Influenza Virus Vaccine Quad IM, Preserv and ABX Free 6 MO-64 YRS (FLUCELVAX) Unknown Completed [facility] SARS-COV-2 COVID-19 VACCINE - (MODERNA) Unknown Completed [facility] Influenza Virus Vaccine Quad .5 mL IM 6+ MO (FLUZONE/FLULAVAL/FL UARIX) Unknown Completed [facility] HEPATITIS A Unknown Completed [facility] Hep B, Adol or Pedi Dosage Unknown Completed [facility] HPV Unknown Completed [facility] Meningococcal Polysaccharide (groups A, C, Y and W-135) conjugate vaccine (MCV4P) Unknown Completed [facility] MMR Unknown Completed [facility] Pneumococcal 7 Conjugate, PCV7 (Prevnar7) Unknown Completed [facility] IPV Unknown Completed [facility] Tetanus/Diptheria [facility] Completed [facility] Varicella (varivax)(chicken pox) Unknown Completed [facility] Influenza Virus Vaccine Quad IM, Preserv and ABX Free 6 MO-64 YRS (FLUCELVAX) Unknown Completed [facility] SARS-COV-2 COVID-19 VACCINE - (MODERNA) Unknown Completed [facility] Influenza Virus Vaccine Quad .5 mL IM 6+ MO (FLUZONE/FLULAVAL/FL UARIX) Unknown Completed [facility] HEPATITIS A Unknown Completed [facility] Hep B, Adol or Pedi Dosage Unknown Completed [facility] HPV Unknown Completed [facility] Meningococcal Polysaccharide (groups A, C, Y and W-135) conjugate vaccine (MCV4P) Unknown Completed [facility] MMR Unknown Completed [facility] Pneumococcal 7 Conjugate, PCV7 (Prevnar7) Unknown Completed [facility] IPV Unknown Completed [facility] Tetanus/Diptheria Unknown [facility] Completed [facility] Varicella (varivax)(chicken pox) Unknown Completed [facility] Influenza Virus Vaccine Quad IM, Preserv and ABX Free 6 MO-64 YRS (FLUCELVAX) Unknown Completed [facility] SARS-COV-2 COVID-19 VACCINE - (MODERNA) Unknown Completed [facility] Influenza Virus Vaccine Quad .5 mL IM 6+ MO (FLUZONE/FLULAVAL/FL UARIX) Unknown Completed [facility] HEPATITIS A Unknown Completed [facility] Hep B, Adol or Pedi Dosage Unknown Completed [facility] HPV Unknown Completed [facility] Meningococcal Polysaccharide (groups A, C, Y and W-135) conjugate vaccine (MCV4P) Unknown Completed [facility] MMR Unknown Completed [facility] Pneumococcal 7 Conjugate, PCV7 (Prevnar7) Unknown Completed [facility] IPV Unknown Completed [facility] Tetanus/Diptheria Unknown Completed Un [facility] TDAP Unknown Completed [facility] Varicella (varivax)(chicken pox) Unknown Completed [facility] Influenza Virus Vaccine Quad IM, Preserv and ABX Free 6 MO-64 YRS (FLUCELVAX) Unknown Completed [facility] SARS-COV-2 COVID-19 VACCINE - (MODERNA) Unknown Completed [facility] Influenza Virus Vaccine Quad .5 mL IM 6+ MO (FLUZONE/FLULAVAL/FL UARIX) Unknown Completed [facility] HEPATITIS A Unknown Completed [facility] Hep B, Adol or Pedi Dosage Unknown Completed [facility] HPV Unknown Completed [facility] Meningococcal Polysaccharide (groups A, C, Y and W-135) conjugate vaccine (MCV4P) Unknown Completed [facility] MMR Unknown Completed [facility] Pneumococcal 7 Conjugate, PCV7 (Prevnar7) Unknown Completed [facility] IPV Unknown Completed [facility] Tetanus/Diptheria Unknown [facility] Completed [facility] Varicella (varivax)(chicken pox) Unknown Completed [facility] Influenza Virus Vaccine Quad IM, Preserv and ABX Free 6 MO-64 YRS (FLUCELVAX) Unknown Completed [facility] SARS-COV-2 COVID-19 VACCINE - (MODERNA) [facility]ine Quad .5 mL IM 6+ MO (FLUZONE/FLULAVAL/FL UARIX) Unknown Completed [facility] HEPATITIS A Unknown Completed [facility] Hep B, Adol or Pedi Dosage Unknown Completed [facility] HPV Unknown Completed [facility] Meningococcal Polysaccharide (groups A, C, Y and W-135) conjugate vaccine (MCV4P) Unknown Completed [facility] MMR Unknown Completed [facility] Pneumococcal 7 Conjugate, PCV7 (Prevnar7) Unknown Completed [facility] IPV Unknown Completed [facility] Tetanus/Diptheria Unknown [facility] Completed [facility] Varicella (varivax)(chicken pox) Unknown Completed [facility] Influenza Virus Vaccine Quad IM, Preserv and ABX Free 6 MO-64 YRS (FLUCELVAX) Unknown Completed [facility] SARS-COV-2 COVID-19 VACCINE - (MODERNA) [facility] Virus Vaccine Quad .5 mL IM 6+ MO (FLUZONE/FLULAVAL/FL UARIX) Unknown Completed [facility] HEPATITIS A Unknown Completed [facility] Hep B, Adol or Pedi Dosage Unknown Completed [facility] HPV Unknown Completed [facility] Meningococcal Polysaccharide (groups A, C, Y and W-135) conjugate vaccine (MCV4P) Unknown Completed [facility] MMR Unknown Completed [facility] Pneumococcal 7 Conjugate, PCV7 (Prevnar7) Unknown Completed [facility] IPV Unknown Completed [facility] Tetanus/Diptheria Unknown [facility] Completed [facility] Varicella (varivax)(chicken pox) Unknown Completed [facility] Influenza Virus Vaccine Quad IM, Preserv and ABX Free 6 MO-64 YRS (FLUCELVAX) Unknown Completed [facility] SARS-COV-2 COVID-19 VACCINE - (MODERNA) Unknown Completed [facility] Influenza Virus Vaccine Quad .5 mL IM 6+ MO (FLUZONE/FLULAVAL/FL UARIX) Unknown Completed [facility] HEPATITIS A Unknown Completed [facility] Hep B, Adol or Pedi Dosage Unknown Completed [facility] HPV Unknown Completed [facility] Meningococcal Polysaccharide (groups A, C, Y and W-135) conjugate vaccine (MCV4P) Unknown Completed [facility] MMR Unknown Completed [facility] Pneumococcal 7 Conjugate, PCV7 (Prevnar7) Unknown Completed [facility] IPV Unknown Completed [facility] Tetanus/Diptheria Unknown [facility] Completed [facility] Varicella (varivax)(chicken pox) Unknown Completed [facility] Influenza Virus Vaccine Quad IM, Preserv and ABX Free 6 MO-64 YRS (FLUCELVAX) Unknown Completed [facility] SARS-COV-2 COVID-19 VACCINE - (MODERNA) Unknown Completed [facility] Influenza Virus Vaccine Quad .5 mL IM 6+ MO (FLUZONE/FLULAVAL/FL UARIX) Unknown Completed [facility] HEPATITIS A Unknown Completed [facility] Hep B, Adol or Pedi Dosage Unknown Completed [facility] HPV Unknown Completed [facility] Meningococcal Polysaccharide (groups A, C, Y and W-135) conjugate vaccine (MCV4P) Unknown Completed [facility] MMR Unknown Completed [facility] Pneumococcal 7 Conjugate, PCV7 (Prevnar7) Unknown Completed [facility] IPV Unknown Completed [facility] Tetanus/Diptheria Unknown [facility] Completed [facility] Varicella (varivax)(chicken pox) Unknown Completed [facility] Influenza Virus Vaccine Quad IM, Preserv and ABX Free 6 MO-64 YRS (FLUCELVAX) Unknown Completed [facility] SARS-COV-2 COVID-19 VACCINE - (MODERNA) Unknown Completed [facility] Influenza Virus Vaccine Quad .5 mL IM 6+ MO (FLUZONE/FLULAVAL/FL UARIX) Unknown Completed [facility] HEPATITIS A Unknown Completed [facility] Hep B, Adol or Pedi Dosage Unknown Completed [facility] HPV Unknown Completed [facility] Meningococcal Polysaccharide (groups A, C, Y and W-135) conjugate vaccine (MCV4P) Unknown Completed [facility] MMR Unknown Completed [facility] Pneumococcal 7 Conjugate, PCV7 (Prevnar7) Unknown Completed [facility] IPV Unknown Completed [facility] Tetanus/Diptheria Unknown [facility] Completed [facility] Varicella (varivax)(chicken pox) Unknown Completed [facility] Influenza Virus Vaccine Quad IM, Preserv and ABX Free 6 MO-64 YRS (FLUCELVAX) Unknown Completed [facility] SARS-COV-2 COVID-19 VACCINE - (MODERNA) Unknown Completed [facility] Influenza Virus Vaccine Quad .5 mL IM 6+ MO (FLUZONE/FLULAVAL/FL UARIX) Unknown Completed [facility] HEPATITIS A Unknown Completed [facility] Hep B, Adol or Pedi Dosage Unknown Completed [facility] HPV Unknown Completed [facility] Meningococcal Polysaccharide (groups A, C, Y and W-135) conjugate vaccine (MCV4P) Unknown Completed [facility] MMR Unknown Completed [facility] Pneumococcal 7 Conjugate, PCV7 (Prevnar7) Unknown Completed [facility] IPV Unknown Completed [facility] Tetanus/Diptheria [facility] Completed [facility] Varicella (varivax)(chicken pox) Unknown Completed [facility] Influenza Virus Vaccine Quad IM, Preserv and ABX Free 6 MO-64 YRS (FLUCELVAX) Unknown Completed [facility] SARS-COV-2 COVID-19 VACCINE - (MODERNA) Unknown Completed [facility] Influenza Virus Vaccine Quad .5 mL IM 6+ MO (FLUZONE/FLULAVAL/FL UARIX) Unknown Completed [facility] HEPATITIS A Unknown Completed [facility] Hep B, Adol or Pedi Dosage Unknown Completed [facility] HPV Unknown Completed [facility] Meningococcal Polysaccharide (groups A, C, Y and W-135) conjugate vaccine (MCV4P) Unknown Completed [facility] MMR Unknown Completed [facility] Pneumococcal 7 Conjugate, PCV7 (Prevnar7) Unknown Completed [facility] IPV Unknown Completed [facility] Tetanus/Diptheria Unknown [facility] Completed [facility] Varicella (varivax)(chicken pox) Unknown Completed [facility] Influenza Virus Vaccine Quad IM, Preserv and ABX Free 6 MO-64 YRS (FLUCELVAX) Unknown Completed [facility] SARS-COV-2 COVID-19 VACCINE - (MODERNA) Unknown Completed [facility] Influenza Virus Vaccine Quad .5 mL IM 6+ MO (FLUZONE/FLULAVAL/FL UARIX) Unknown Completed [facility] HEPATITIS A Unknown Completed [facility] Hep B, Adol or Pedi Dosage Unknown Completed [facility] HPV Unknown Completed [facility] Meningococcal Polysaccharide (groups A, C, Y and W-135) conjugate vaccine (MCV4P) Unknown Completed [facility] MMR Unknown Completed [facility] Pneumococcal 7 Conjugate, PCV7 (Prevnar7) Unknown Completed [facility] IPV Unknown Completed [facility] Tetanus[facility]Diptheria [facility] Com[facility] Varicella (varivax)(chicken pox) Unknown Completed [facility] Influenza Virus Vaccine Quad IM, Preserv and ABX Free 6 MO-64 YRS (FLUCELVAX) Unknown Completed [facility] SARS-COV-2 COVID-19 VACCINE - (MODERNA) Unknown Completed [facility] Influenza Virus Vaccine Quad .5 mL IM 6+ MO (FLUZONE/FLULAVAL/FL UARIX) Unknown Completed [facility] HEPATITIS A Unknown Completed [facility] Hep B, Adol or Pedi Dosage Unknown Completed [facility] HPV Unknown Completed [facility] Meningococcal Polysaccharide (groups A, C, Y and W-135) conjugate vaccine (MCV4P) Unknown Completed [facility] MMR Unknown Completed [facility] Pneumococcal 7 Conjugate, PCV7 (Prevnar7) Unknown Completed [facility] IPV Unknown Completed [facility] Tetanus/Diptheria Unknown Completed [facility] TDAP Unknown Completed [facility] Varicella (varivax)(chicken pox) Unknown Completed [facility] Influenza Virus Vaccine Quad IM, Preserv and ABX Free 6 MO-64 YRS (FLUCELVAX) Unknown Completed [facility] SARS-COV-2 COVID-19 VACCINE - (MODERNA) Unknown Completed [facility] Influenza Virus Vaccine Quad IM, Preserv and ABX Free 6 MO-64 YRS (FLUCELVAX) Unknown Completed [facility] SARS-COV-2 COVID-19 VACCINE - (MODERNA) Unknown Completed [facility] Influenza Virus Vaccine Quad IM, Preserv and ABX Free 6 MO-64 YRS (FLUCELVAX) Unknown Completed [facility] SARS-COV-2 COVID-19 VACCINE - (MODERNA) Unknown Completed [facility] Influenza Virus Vaccine Quad IM, Preserv and ABX Free 6 MO-64 YRS (FLUCELVAX) Unknown Completed [facility] SARS-COV-2 COVID-19 VACCINE - (MODERNA) Unknown Completed [facility] Influenza Virus Vaccine Quad IM, Preserv and ABX Free 6 MO-64 YRS (FLUCELVAX) Unknown Completed [facility] SARS-COV-2 COVID-19 VACCINE - (MODERNA) Unknown Completed [facility] Influenza Virus Vaccine Quad IM, Preserv and ABX Free 6 MO-64 YRS (FLUCELVAX) Unknown Completed [facility] SARS-COV-2 COVID-19 VACCINE - (MODERNA) Unknown Completed [facility] Influenza Virus Vaccine Quad IM, Preserv and ABX Free 6 MO-64 YRS (FLUCELVAX) Unknown Completed [facility] SARS-COV-2 COVID-19 VACCINE - (MODERNA) Unknown Completed [facility] Influenza Virus Vaccine Quad IM, Preserv and ABX Free 6 MO-64 YRS (FLUCELVAX) Unknown Completed [facility] SARS-COV-2 COVID-19 VACCINE - (MODERNA) Unknown Completed [facility] Influenza Virus Vaccine Quad IM, Preserv and ABX Free 6 MO-64 YRS (FLUCELVAX) Unknown Completed [facility] SARS-COV-2 COVID-19 VACCINE - (MODERNA) Unknown Completed [facility] Influenza Virus Vaccine Quad IM, Preserv and ABX Free 6 MO-64 YRS (FLUCELVAX) Unknown Completed [facility] SARS-COV-2 COVID-19 VACCINE - (MODERNA) Unknown Completed [facility] Influenza Virus Vaccine Quad IM, Preserv and ABX Free 6 MO-64 YRS (FLUCELVAX) Unknown Completed [facility] SARS-COV-2 COVID-19 VACCINE - (MODERNA) Unknown Completed [facility] Influenza Virus Vaccine Quad .5 mL IM 6+ MO (FLUZONE/FLULAVAL/FL UARIX) Unknown Completed [facility] HEPATITIS A Unknown Completed [facility] Hep B, Adol or Pedi Dosage Unknown Completed [facility] HPV Unknown Completed [facility] Meningococcal Polysaccharide (groups A, C, Y and W-135) conjugate vaccine (MCV4P) Unknown Completed [facility] MMR Unknown Completed [facility] Pneumococcal 7 Conjugate, PCV7 (Prevnar7) Unknown Completed [facility] IPV Unknown Completed [facility] Tetanus/Diptheria Unknown Completed [facility] TDAP Unknown Completed [facility] Varicella (varivax)(chicken pox) Unknown Completed [facility] Influenza Virus Vaccine Quad IM, Preserv and ABX Free 6 MO-64 YRS (FLUCELVAX) Unknown Completed [facility] SARS-COV-2 COVID-19 VACCINE - (MODERNA) Unknown Completed [facility] Influenza Virus Vaccine Quad .5 mL IM 6+ MO (FLUZONE/FLULAVAL/FL UARIX) Unknown Completed [facility] HEPATITIS A Unknown Completed [facility] Hep B, Adol or Pedi Dosage Unknown Completed [facility] HPV Unknown Completed [facility] Meningococcal Polysaccharide (groups A, C, Y and W-135) conjugate vaccine (MCV4P) Unknown Completed [facility] MMR Unknown Completed [facility] Pneumococcal 7 Conjugate, PCV7 (Prevnar7) Unknown Completed [facility] IPV Unknown Completed [facility] Tetanus/Diptheria Unknown [facility] Unknown Completed [facility] Varicella (varivax)(chicken pox) Unknown Completed [facility] Influenza Virus Vaccine Quad IM, Preserv and ABX Free 6 MO-64 YRS (FLUCELVAX) Unknown Completed [facility] SARS-COV-2 COVID-19 VACCINE - (MODERNA) [facility]ine [facility] .5 mL IM 6+ MO (FLUZONE/FLULAVAL/FL UARIX) Unknown Completed [facility] HEPATITIS A Unknown Completed [facility] Hep B, Adol or Pedi Dosage Unknown Completed [facility] HPV Unknown Completed [facility] Meningococcal Polysaccharide (groups A, C, Y and W-135) conjugate vaccine (MCV4P) Unknown Completed [facility] MMR Unknown Completed [facility] Pneumococcal 7 Conjugate, PCV7 (Prevnar7) Unknown Completed [facility] IPV Unknown Completed [facility] Tetanus/Diptheria Unknown [facility] Completed [facility] Varicella (varivax)(chicken pox) Unknown Completed [facility] Influenza Virus Vaccine Quad IM, Preserv and ABX Free 6 MO-64 YRS (FLUCELVAX) Unknown Completed [facility] SARS-COV-2 COVID-19 VACCINE - (MODERNA) Unknown Completed [facility] Influenza Virus Vaccine Quad .5 mL IM 6+ MO (FLUZONE/FLULAVAL/FL UARIX) Unknown Completed [facility] HEPATITIS A Unknown Completed [facility] Hep B, Adol or Pedi Dosage Unknown Completed [facility] HPV Unknown Completed [facility] Meningococcal Polysaccharide (groups A, C, Y and W-135) conjugate vaccine (MCV4P) Unknown Completed [facility] MMR Unknown Completed [facility] Pneumococcal 7 Conjugate, PCV7 (Prevnar7) Unknown Completed [facility] IPV Unknown Completed [facility] Tetanus/Diptheria Unknown [facility] Unknown Completed [facility] Varicella (varivax)(chicken pox) Unknown Completed [facility] Influenza Virus Vaccine Quad IM, Preserv and ABX Free 6 MO-64 YRS (FLUCELVAX) Unknown Completed [facility] SARS-COV-2 COVID-19 VACCINE - (MODERNA) Unknown Completed [facility] Influenza Virus Vaccine Quad .5 mL IM 6+ MO (FLUZONE/FLULAVAL/FL UARIX) Unknown Completed [facility] HEPATITIS A Unknown Completed [facility] Hep B, Adol or Pedi Dosage Unknown Completed [facility] HPV Unknown Completed [facility] Meningococcal Polysaccharide (groups A, C, Y and W-135) conjugate vaccine (MCV4P) Unknown Completed [facility] MMR Unknown Completed [facility] Pneumococcal 7 Conjugate, PCV7 (Prevnar7) Unknown Completed [facility] IPV Unknown Completed [facility] Tetanus/Diptheria [facility] Completed [facility] Varicella (varivax)(chicken pox) Unknown Completed [facility] Influenza Virus Vaccine Quad IM, Preserv and ABX Free 6 MO-64 YRS (FLUCELVAX) Unknown Completed [facility] SARS-COV-2 COVID-19 VACCINE - (MODERNA) Unknown Completed [facility] Influenza Virus Vaccine Quad .5 mL IM 6+ MO (FLUZONE/FLULAVAL/FL UARIX) Unknown Completed [facility] HEPATITIS A Unknown Completed [facility] Hep B, Adol or Pedi Dosage Unknown Completed [facility] HPV Unknown Completed [facility] Meningococcal Polysaccharide (groups A, C, Y and W-135) conjugate vaccine (MCV4P) Unknown Completed [facility] MMR Unknown Completed [facility] Pneumococcal 7 Conjugate, PCV7 (Prevnar7) Unknown Completed [facility] IPV Unknown Completed [facility] Tetanus/Diptheria [facility] Completed [facility] Varicella (varivax)(chicken pox) Unknown Completed [facility] Vital Signs Vital Name Observation Time Observation Value Comments S ource Systolic blood pressure 2024-07-10 14:33:00 106 mm[Hg] [facility] Diastolic blood pressure 2024-07-10 14:33:00 71 mm[Hg] [facility] Heart rate 2024-07-10 14:33:00 82 /min Unive [facility] Body temperature 2024-07-10 14:33:00 36.94 Val [facility] Body height 2024-07-10 14:33:00 152.4 cm [facility] Body weight 2024-07-10 14:33:00 83.915 kg [facility] BMI 2024-07-10 14:33:00 36.13 kg/m2 [facility] Oxygen saturation in Arterial blood by Pulse oximetry 2024-07-10 14:33:00 97 /min [facility] Systolic blood pressure 2024-06-26 19:32:00 108 mm[Hg] [facility] Diastolic blood pressure 2024-06-26 19:32:00 66 mm[Hg] [facility] Heart rate 2024-06-26 19:32:00 76 /min Unive [facility] Body temperature 2024-06-26 19:32:00 37 Val [facility] Body height 2024-06-26 19:32:00 152.4 cm [facility] Body weight 2024-06-26 19:32:00 83.462 kg [facility] BMI 2024-06-26 19:32:00 35.94 kg/m2 [facility] Systolic blood pressure 2024-06-12 16:20:00 108 mm[Hg] [facility] Diastolic blood pressure 2024-06-12 16:20:00 61 mm[Hg] [facility] Heart rate 2024-06-12 16:20:00 77 /min Unive [facility] Body temperature 2024-06-12 16:20:00 36.5 Val [facility] Respiratory rate 2024-06-12 16:20:00 18 /min [facility] Body height 2024-06-12 16:20:00 152.4 cm [facility] Body weight 2024-06-12 16:20:00 83.462 kg [facility] BMI 2024-06-12 16:20:00 35.94 kg/m2 [facility] Systolic blood pressure 2024-02-17 16:30:00 113 mm[Hg] [facility] Diastolic blood pressure 2024-02-17 16:30:00 76 mm[Hg] [facility] Heart rate 2024-02-17 16:30:00 76 /min Unive [facility] Respiratory rate 2024-02-17 16:30:00 16 /min [facility] Body height 2024-02-17 16:30:00 152.4 cm [facility] Body weight 2024-02-17 16:30:00 81.285 kg [facility] BMI 2024-02-17 16:30:00 35.00 kg/m2 [facility] Systolic blood pressure 2024-01-15 20:30:00 126 mm[Hg] [facility] Diastolic blood pressure 2024-01-15 20:30:00 79 mm[Hg] [facility] Heart rate 2024-01-15 20:30:00 77 [facility] Body temperature 2024-01-15 20:30:00 36.56 Val [facility] Respiratory rate 2024-01-15 20:30:00 16 /min [facility] Oxygen saturation in Arterial blood by Pulse oximetry 2024-01-15 20:30:00 100 /min [facility] Body height 2024-01-14 09:21:00 152.4 cm [facility] Body weight 2024-01-14 09:21:00 90.175 kg [facility] BMI 2024-01-14 09:21:00 38.83 kg/m2 [facility] Systolic blood pressure 2024-01-13 18:53:00 116 mm[Hg] [facility] Diastolic blood pressure 2024-01-13 18:53:00 74 mm[Hg] [facility] Heart rate 2024-01-13 18:53:00 98 /[facility] 2024-01-13 18:53:00 18 /min [facility] Body height 2024-01-13 18:53:00 152.4 cm [facility] Body weight 2024-01-13 18:53:00 88.905 kg [facility] BMI 2024-01-13 18:53:00 38.28 kg/m2 [facility] Systolic blood pressure 2024-01-06 15:13:00 113 mm[Hg] [facility] Diastolic blood pressure 2024-01-06 15:13:00 75 mm[Hg] [facility] Heart rate 2024-01-06 15:13:00 87 /min [facility] Res[facility] rate 2024-01-06 15:13:00 15 /min [facility] Body height 2024-01-06 15:13:00 152.4 cm [facility] Body weight 2024-01-06 15:13:00 89.676 kg [facility] BMI 2024-01-06 15:13:00 38.61 kg/m2 [facility] Systolic blood pressure 2024-01-03 01:52:00 111 mm[Hg] [facility] Diastolic blood pressure 2024-01-03 01:52:00 64 mm[Hg] [facility] Heart rate 2024-01-03 01:52:00 91 /min Unive [facility] Body temperature 2024-01-03 01:52:00 36.89 Val [facility] Respiratory rate 2024-01-03 01:52:00 18 /min [facility] Body height 2024-01-03 01:23:00 152.4 cm [facility] Body weight 2024-01-03 01:23:00 91.354 kg [facility] BMI 2024-01-03 01:23:00 39.33 kg/m2 [facility] Oxygen saturation in Arterial blood by Pulse oximetry 2024-01-03 01:23:00 100 /min [facility] Systolic blood pressure 2023-12-30 15:13:00 118 mm[Hg] [facility] Diastolic blood pressure 2023-12-30 15:13:00 79 mm[Hg] [facility] Heart rate 2023-12-30 15:13:00 67 /min Unive [facility] Body height 2023-12-30 15:13:00 152.4 cm [facility] Body weight 2023-12-30 15:13:00 89.086 kg [facility] BMI 2023-12-30 15:13:00 38.36 kg/m2 [facility] Systolic blood pressure 2023-12-23 19:55:00 110 mm[Hg] [facility] Diastolic blood pressure 2023-12-23 19:55:00 74 mm[Hg] [facility] Heart rate 2023-12-23 19:55:00 98 /min Unive [facility] Body temperature 2023-12-23 19:55:00 36.72 Val [facility] Respiratory rate 2023-12-23 19:55:00 16 /min [facility] Body height 2023-12-23 19:55:00 152.4 cm [facility] Body weight 2023-12-23 19:55:00 88.678 kg [facility] BMI 2023-12-23 19:55:00 38.18 kg/m2 [facility] Oxygen saturation in Arterial blood by Pulse oximetry 2023-12-23 19:55:00 96 /min [facility] Systolic blood pressure 2023-12-12 18:06:00 111 mm[Hg] [facility] Diastolic blood pressure 2023-12-12 18:06:00 64 mm[Hg] [facility] Heart rate 2023-12-12 18:06:00 90 /min Unive [facility] Body temperature 2023-12-12 18:06:00 36.72 Val [facility] Body height 2023-12-12 18:06:00 152.4 cm [facility] Body weight 2023-12-12 18:06:00 87.635 kg [facility] BMI 2023-12-12 18:06:00 37.73 kg/m2 [facility] Systolic blood pressure 2023-11-25 18:05:00 120 mm[Hg] [facility] Diastolic blood pressure 2023-11-25 18:05:00 81 mm[Hg] [facility] Heart rate 2023-11-25 18:05:00 106 /[facility] Body temperature 2023-11-25 18:05:00 36.72 Val [facility] Respiratory rate 2023-11-25 18:05:00 16 /min [facility] Body height 2023-11-25 18:05:00 152.4 cm [facility] Body weight 2023-11-25 18:05:00 88.089 kg [facility] BMI 2023-11-25 18:05:00 37.93 kg/m2 [facility] Oxygen saturation in Arterial blood by Pulse oximetry 2023-11-25 18:05:00 97 /min [facility] Systolic blood pressure 2023-11-14 20:22:00 123 mm[Hg] [facility] Diastolic blood pressure 2023-11-14 20:22:00 77 mm[Hg] [facility] Heart rate 2023-11-14 20:22:00 103 /min [facility] Body temperature 2023-11-14 20:22:00 36.72 Val [facility] Respiratory rate 2023-11-14 20:22:00 16 /min [facility] Body height 2023-11-14 20:22:00 152.4 cm [facility] Body weight 2023-11-14 20:22:00 88.043 kg [facility] BMI 2023-11-14 20:22:00 37.91 kg/m2 [facility] Systolic blood pressure 2023-10-14 19:31:00 101 mm[Hg] [facility] Diastolic blood pressure 2023-10-14 19:31:00 59 mm[Hg] [facility] Heart rate 2023-10-14 19:31:00 120 /[facility] rate 2023-10-14 19:31:00 18 /min [facility] Body height 2023-10-14 19:31:00 152.4 cm [facility] Body weight 2023-10-14 19:31:00 85.73 kg [facility] BMI 2023-10-14 19:31:00 36.91 kg/m2 [facility] Systolic blood pressure 2023-10-06 13:29:00 119 mm[Hg] [facility] Diastolic blood pressure 2023-10-06 13:29:00 80 mm[Hg] [facility] Heart rate 2023-10-06 13:29:00 95 /min Unive [facility] Body temperature 2023-10-06 13:29:00 36.39 Val [facility] Respiratory rate 2023-10-06 13:29:00 18 /min [facility] Body height 2023-10-06 13:29:00 152.4 cm [facility] Body weight 2023-10-06 13:29:00 85.276 kg [facility] BMI 2023-10-06 13:29:00 36.72 kg/m2 [facility] Systolic blood pressure 2023-09-16 18:57:00 115 mm[Hg] [facility] Diastolic blood pressure 2023-09-16 18:57:00 66 mm[Hg] [facility] Heart rate 2023-09-16 18:57:00 90 /min Unive [facility] Body temperature 2023-09-16 18:57:00 36.33 Val [facility] Respiratory rate 2023-09-16 18:57:00 18 /min [facility] Body height 2023-09-16 18:57:00 152.4 cm [facility] Body weight 2023-09-16 18:57:00 83.462 kg [facility] BMI 2023-09-16 18:57:00 35.94 kg/m2 [facility] Systolic blood pressure 2023-08-19 18:45:00 120 mm[Hg] [facility] Diastolic blood pressure 2023-08-19 18:45:00 62 mm[Hg] [facility] Heart rate 2023-08-19 18:45:00 113 /min Unive [facility] Body temperature 2023-08-19 18:45:00 35.83 Val [facility] Respiratory rate 2023-08-19 18:45:00 18 /min [facility] Body height 2023-08-19 18:45:00 152.4 cm [facility] Body weight 2023-08-19 18:45:00 83.689 kg [facility] BMI 2023-08-19 18:45:00 36.03 kg/m2 [facility] Systolic blood pressure 2023-07-21 18:39:00 128 mm[Hg] [facility] Diastolic blood pressure 2023-07-21 18:39:00 71 mm[Hg] [facility] Heart rate 2023-07-21 18:39:00 102 /min Un[facility] Body temperature 2023-07-21 18:39:00 36.39 Val [facility] Respiratory rate 2023-07-21 18:39:00 18 /min [facility] Body height 2023-07-21 18:39:00 152.4 cm [facility] Body weight 2023-07-21 18:39:00 82.645 kg [facility] BMI 2023-07-21 18:39:00 35.58 kg/m2 [facility] Systolic blood pressure 2023-06-22 19:44:00 112 mm[Hg] [facility] Diastolic blood pressure 2023-06-22 19:44:00 74 mm[Hg] [facility] Heart rate 2023-06-22 19:44:00 77 /min Unive [facility] Body temperature 2023-06-22 19:44:00 36.44 Val [facility] Respiratory rate 2023-06-22 19:44:00 18 /min [facility] Body height 2023-06-22 19:44:00 152.4 cm [facility] Body weight 2023-06-22 19:44:00 80.468 kg [facility] BMI 2023-06-22 19:44:00 34.65 kg/m2 [facility] Systolic blood pressure 2022-07-21 19:03:00 108 mm[Hg] [facility] Diastolic blood pressure 2022-07-21 19:03:00 70 mm[Hg] [facility] Heart rate 2022-07-21 19:03:00 73 /[facility] Body temperature 2022-07-21 19:03:00 36.94 Val [facility] Respiratory rate 2022-07-21 19:03:00 18 /min [facility] Body height 2022-07-21 19:03:00 152.4 cm [facility] Body weight 2022-07-21 19:03:00 78.472 kg [facility] BMI 2022-07-21 19:03:00 33.79 kg/m2 [facility] Height 2021-04-09 10:55:00 152.4 CM Weight 2021-04-09 10:55:00 75.38 KG Height 2021-04-02 11:07:00 152.4 CM Weight 2021-04-02 11:07:00 74.84 KG Systolic blood pressure 2020-11-06 13:25:00 122 mm[Hg] [facility] Diastolic blood pressure 2020-11-06 13:25:00 77 mm[Hg] [facility] Heart rate 2020-11-06 13:25:00 80 /min Unive [facility] Body temperature 2020-11-06 13:25:00 36.5 Val [facility] Respiratory rate 2020-11-06 13:25:00 16 /min [facility] Body height 2020-11-06 13:25:00 152.4 cm [facility] Body weight 2020-11-06 13:25:00 81.449 kg [facility] BMI 2020-11-06 13:25:00 35.07 kg/m2 Univ [facility] Systolic blood pressure 2020-11-06 13:25:00 122 mm[Hg] [facility] Diastolic blood pressure 2020-11-06 13:25:00 77 mm[Hg] [facility] Heart rate 2020-11-06 13:25:00 80 /min [facility] Body temperature 2020-11-06 13:25:00 36.5 Val [facility] Respiratory rate 2020-11-06 13:25:00 16 /min [facility] Body height 2020-11-06 13:25:00 152.4 cm [facility] Body weight 2020-11-06 13:25:00 81.449 kg [facility] BMI 2020-11-06 13:25:00 35.07 kg/m2 [facility] Systolic blood pressure 2020-10-07 20:19:00 113 mm[Hg] [facility] Diastolic blood pressure 2020-10-07 20:19:00 79 mm[Hg] [facility] Heart rate 2020-10-07 20:19:00 71 /min [facility] Body temperature 2020-10-07 20:19:00 36.83 Val [facility] Respiratory rate 2020-10-07 20:19:00 16 /min [facility] Body height 2020-10-07 20:19:00 152.4 cm [facility] Body weight 2020-10-07 20:19:00 84.823 kg [facility] BMI 2020-10-07 20:19:00 36.52 kg/m2 [facility] Body weight 2020-09-09 22:13:00 82.555 kg [facility] BMI 2020-09-09 22:13:00 35.54 kg/m2 [facility] Systolic blood pressure 2020-09-09 22:13:00 124 mm[Hg] [facility] Diastolic blood pressure 2020-09-09 22:13:00 73 mm[Hg] [facility] Heart rate 2020-09-09 22:13:00 78 /min [facility] Body temperature 2020-09-09 22:13:00 36.83 Val [facility] Respiratory rate 2020-09-09 22:13:00 16 /min [facility] Body height 2020-09-09 22:13:00 152.4 cm [facility] Systolic blood pressure 2020-05-05 19:34:00 106 mm[Hg] [facility] Diastolic blood pressure 2020-05-05 19:34:00 67 mm[Hg] [facility] Heart rate 2020-05-05 19:34:00 79 /min [facility] Body temperature 2020-05-05 19:34:00 36.33 Val [facility] Respiratory rate 2020-05-05 19:34:00 16 /min [facility] Body height 2020-05-05 19:34:00 152.4 cm [facility] Body weight 2020-05-05 19:34:00 78.472 kg [facility] BMI 2020-05-05 19:34:00 33.79 kg/m2 [facility] Systolic blood pressure 2020-02-27 16:02:00 112 mm[Hg] [facility] Diastolic blood pressure 2020-02-27 16:02:00 72 mm[Hg] [facility] Heart rate 2020-02-27 16:02:00 69 /min Unive [facility] Body temperature 2020-02-27 16:02:00 36.83 Val [facility] Respiratory rate 2020-02-27 16:02:00 16 /min [facility] Body height 2020-02-27 16:02:00 152.4 cm [facility] Body weight 2020-02-27 16:02:00 76.93 kg [facility] BMI 2020-02-27 16:02:00 33.12 kg/m2 [facility] Systolic blood pressure 2019-12-31 14:12:00 123 mm[Hg] [facility] Diastolic blood pressure 2019-12-31 14:12:00 78 mm[Hg] [facility] Heart rate 2019-12-31 14:12:00 89 [facility] Body temperature 2019-12-31 14:12:00 36.61 Val [facility] Respiratory rate 2019-12-31 14:12:00 16 /min [facility] Body height 2019-12-31 14:12:00 152.4 cm [facility] Body weight 2019-12-31 14:12:00 77.253 kg [facility] BMI 2019-12-31 14:12:00 33.26 kg/m2 [facility] Systolic blood pressure 2019-12-21 17:54:00 124 mm[Hg] [facility] Diastolic blood pressure 2019-12-21 17:54:00 70 mm[Hg] [facility] Heart rate 2019-12-21 17:54:00 94 /min [facility] Body temperature 2019-12-21 17:54:00 37.39 Avl [facility] Respiratory rate 2019-12-21 17:54:00 16 /min [facility] Body height 2019-12-21 17:54:00 144.8 cm [facility] Body weight 2019-12-21 17:54:00 76.233 kg [facility] BMI 2019-12-21 17:54:00 36.37 kg/m2 [facility] Procedures Procedure Date / Time Performed Performing Clinician Source PHYSICIAN ORDERS 2024-02-23 17:10:23 Doctor Unas signed, [place] [facility] CBC WITH DIFF 2024-01-15 08:19:00 Kvng Hsu [facility] CENTRAL NEURAXIAL BLOCK 2024-01-14 15:30:00 Delia Gilmore [facility] CBC WITH DIFF 2024-01-14 09:31:00 Kvng Hus [facility] HEPATITIS B SURFACE ANTIGEN 2024-01-14 09:31:00 Kvng Hsu [facility] HB ABO GROUPING 2024-01-14 09:31:00 Kvng Hsu [facility] RHO (D) IMMUNE GLOBULIN 2024-01-14 09:31:00 Kvng Hsu [facility] ADC OR CECELIA ONLY - RPR 2024-01-14 09:31:00 Kvng Hsu [facility] HIV 1/2 AG-AB WITH REFLEX 2024-01-14 09:31:00 GilbertoKvng [facility] POCT URINALYSIS W/O SPECIFIC GRAVITY 2024-01-13 00:00:00 GilbertoKvng [facility] POCT URINALYSIS W/O SPECIFIC GRAVITY 2024-01-06 00:00:00 GilbertoKvng [facility] POCT URINALYSIS W/O SPECIFIC GRAVITY 2023-12-30 00:00:00 HsuKvng [facility] DSU PRE-OP 2023-12-26 13:06:38 Doctor Unass igned, [place] [facility] SECOND AND THIRD TRIMESTER ULTRASOUND 2023-12-23 14:12:00 Ritu Mar [facility] POCT URINALYSIS W/O SPECIFIC GRAVITY 2023-12-23 00:00:00 HsuKvng [facility] POCT URINALYSIS W/O SPECIFIC GRAVITY 2023-12-12 00:00:00 GilbertoKvng [facility] POCT URINALYSIS W/O SPECIFIC GRAVITY 2023-11-25 00:00:00 GilbertoKvng [facility] DME/SUPPLY JUSTIFICATION 2023-11-21 16:25:38 Doc tor Unassigned, [place] [facility] DME/SUPPLY JUSTIFICATION 2023-11-21 15:52:22 Doc tor Unassigned, [place] [facility] DME/SUPPLY JUSTIFICATION 2023-11-21 15:50:48 Doc tor Unassigned, [place] [facility] TDAP VACCINE, >11 YRS, IM 2023-11-14 20:42:28 Theodore Tubbs [facility] POCT URINALYSIS W/O SPECIFIC GRAVITY 2023-11-14 00:00:00 Theodore Tubbs [facility] FLU VACC ([id number]), 6 MO-64 YRS, .5ML, IM, QUAD (FLUCELVAX) 2023-10-14 19:57:35 GilbertoSimonamyron Contreras [facility] POCT URINALYSIS W/O SPECIFIC GRAVITY 2023-10-14 00:00:00 Kvng Hsu [facility] SECOND AND THIRD TRIMESTER ULTRASOUND 2023-10-06 17:10:22 Doctor Unassigned, [place] [facility] POCT URINALYSIS 2023-10-06 13:32:00 Ritu Mar [facility] POCT URINALYSIS 2023-09-16 19:02:00 Ritu Mar [facility] SECOND AND THIRD TRIMESTER ULTRASOUND 2023-08-29 21:25:00 Ritu Mar [facility] POCT URINALYSIS 2023-08-19 18:46:00 Ritu Mar [facility] ASSIGNMENT OF BENEFITS 2023-07-21 18:00:05 Docto r Unassigned, [place] [facility] FIRST TRIMESTER ULTRASOUND 2023-07-06 20:47:00 Ritu Mar [facility] POCT TEST 2023-06-22 19:34:00 Sameer Mar [facility] POCT URINALYSIS W/O SPECIFIC GRAVITY 2023-06-22 19:34:00 Ritu Mar [facility] PATIENT FINANCIAL POLICY 2023-06-22 19:03:59 Doctor Unassigned, [place] [facility] HB CREATININE SERUM/BLOOD FOR IMAGING 2022-08-26 21:43:00 Radiology [facility] CT HEAD W CONTRAST 2022-08-26 21:12:15 Requisition, Pa per [facility] CT HEAD WO CONTRAST 2022-08-26 21:05:06 Requisition, P aper [facility] CONSENT/REFUSAL FOR DIAGNOSIS AND TREATMENT 2022-08-26 20:10:13 Doctor Unassigned, [place] [facility] ASSIGNMENT OF BENEFITS 2022-08-26 20:09:55 Docto r Unassigned, [place] [facility] GALV ONLY - VAGINAL PATHOGENS BY NUCLEIC ACID TESTING 2022-07-21 19:56:00 iRtu Mar [facility] HIV 1/2 AG-AB WITH REFLEX 2022-07-21 19:56:00 Ritu Mar [facility] PAP SMEAR-LIQUID BASED-CP 2022-07-21 19:56:00 Ritu Mra [facility] SYPHILIS IGG/IGM 2022-07-21 19:56:00 Ava Mar [facility] FLU VACC (), 6 MO-64 YRS, .5ML, IM, QUAD (FLUCELVAX) 2022-07-21 19:37:13 Ritu Mar [facility] ASSIGNMENT OF BENEFITS 2022-07-21 18:29:43 Docto r Unassigned, [place] [facility] ASSIGNMENT OF BENEFITS 2021-05-01 13:09:49 Docto r Unassigned, [place] [facility] EXCISION RT LW ARM\\T\\WRIST TENDON OP 2021-04-09 00:00:00 [facility] POCT TEST 2020-11-06 14:48:00 Sameer Mar [facility] POCT TEST 2020-10-07 21:24:00 Sameer Mar [facility] PROLACTIN 2020-10-07 21:07:00 Ritu Mar [facility] THYROID STIMULATING HORMONE 2020-10-07 21:07:00 Ritu Mar [facility] POCT TEST 2020-09-09 22:24:00 Riri Dale [facility] POCT TEST 2020-05-05 19:40:00 Sameer Mar [facility] ASSIGNMENT OF BENEFITS 2019-12-31 13:55:59 Docto r Unassigned, [place] [facility] NOTICE OF PRIVACY PRACTICES 2019-12-21 17:37:24 Doctor Unassigned, [place] [facility] Encounters Start Date/Time End Date/Time Encounter Type Admission Type Attending Clinicians Care Facility Care Department Encounter ID Source 2024-05-10 13:49:00 Outpatient No, PCP CLS [facility] [id number] [place] [facility] 2025-06-26 14:15:00 2025-06-26 14:15:00 Outpatient Delia HSU, KVNG HSU, KVNG [facility] [id number] [facility] 2023-11-21 00:00:00 2024-08-25 07:48:29 Orders Only Doctor Unassigned, [place] Doctor Unassigned, [place] [facility] 1.2.840.114 350.1.13.10 4.2.7.2.686 [id number] [facility] 2023-11-21 00:00:00 2024-08-25 07:48:15 Orders Only Doctor Unassigned, [place] Doctor Unassigned, [place] [facility] ([facility]) 1.2.840.114 350.1.13.10 4.2.7.2.686 [id number] [facility] 2023-11-21 00:00:00 2024-08-25 07:48:08 Orders Only Doctor Unassigned, [place] Doctor Unassigned, [place] [facility] ([facility]) 1.2.840.114 350.1.13.10 4.2.7.2.686 [id number] [facility] 2023-12-26 00:00:00 2024-08-25 07:30:58 Orders Only Doctor Unassigned, [place] Doctor Unassigned, [place] [facility]) 1.2.840.114 350.1.13.10 4.2.7.2.686 [id number] [facility] 2024-02-23 00:00:00 2024-08-25 07:07:11 Orders Only Doctor Unassigned, [place] Doctor Unassigned, [place] [facility] ([facility]) 1.2.840.114 350.1.13.10 4.2.7.2.686 [id number] [facility] 2024-06-27 00:00:00 2024-07-28 18:16:52 Patient Secure Msg Doctor Unassigned, [place] Doctor Unassigned, [place] [facility] 1.2.840.114 350.1.13.10 4.2.7.2.686 [id number] [facility] 2024-07-10 09:30:00 2024-07-10 09:45:00 Pega Developer Visit Lab, Ang - Db Yolanda, Fakeha Lab, Ang - Db [facility] BUILDING 1.2.840.114 350.1.13.10 4.2.7.2.686 [id number] [facility] 2024-07-10 08:40:00 2024-07-10 09:00:34 Outpatient R YOLANDA, FAKEHA GUERRERO, FAKEHA [facility] [id number] [facility] 2024-07-10 08:40:00 2024-07-10 09:00:34 Office Visit Yolanda Fakjessiea [facility]UTHANN ORDAZ [facility] OFF[facility] BUILDING 1.2.840.114 350.1.13.10 4.2.7.2.686 [id number] [facility] 2024-07-05 00:00:00 2024-07-05 14:16:25 Telephone Kvng Hsu [facility] BUILDING 1.2.840.114 350.1.13.10 4.2.7.2.686 [id number] [facility] 2024-06-28 00:00:00 2024-06-28 16:18:28 Telephone Kvng Hsu [facility] BUILDING 1.2.840.114 350.1.13.10 4.2.7.2.686 [id number] [facility] 2024-06-26 14:15:00 2024-06-26 14:30:00 Pega Developer Visit 2, Adc Lab Kvng Hsu 2, Adc Lab [facility] PROFESSIO NAL BUILDING 1.2.840.114 350.1.13.10 4.2.7.2.686 [id number] [facility] 2024-06-26 13:30:00 2024-06-26 14:04:43 Outpatient R KVNG HSU VIEN [facility] [id number] [facility] 2024-06-26 13:30:00 2024-06-26 14:04:43 Office Visit [facility]ng [facility] 1.2.840.114 350.1.13.10 4.2.7.2.686 [id number] [facility] 2024-06-12 10:00:00 2024-06-12 10:30:00 Office Visit Kvng Hsu [facility] NAL BUILDING 1.2.840.114 350.1.13.10 4.2.7.2.686 [id number] [facility] 2024-06-12 10:00:00 2024-06-12 10:00:00 [facility] R [facility] [id number] 2024-05-10 00:00:00 2024-05-10 00:00:00 Office Visit- New Pt.- Level 3 CLS CLS [id number] [facility] 2024-02-17 11:30:00 2024-02-17 11:49:31 Outpatient R [facility]VNG [facility] [id number] [facility] 2024-02-17 11:30:00 2024-02-17 11:49:31 Routine Visit Kvng Hsu [facility] 1.2.840.114 350.1.13.10 4.2.7.2.686 [id number] [facility] 2024-02-10 09:30:00 2024-02-10 09:30:00 Outpatient R KVNG HSU VIEN [facility] [id number] [facility] 2024-01-14 03:53:00 2024-01-15 18:30:00 Inpatient P KVNG HSU VIEN [facility] YANIV [id number] [facility] 2024-01-14 03:53:00 2024-01-15 18:30:00 Hospital Encounter Kvng Hsu [facility] 1.2.840.114 350.1.13.10 4.2.7.2.686 [id number] [facility] 2024-01-14 10:30:00 2024-01-14 19:55:00 Anesthesia Event Delia Gilmore [facility] 1.2.840.114 350.1.13.10 4.2.7.2.686 [id number] [facility] 2024-01-14 09:09:33 2024-01-14 09:09:33 Anesthesia Event Leighann [facility] 1.2.840.114 350.1.13.10 4.2.7.2.686 [id number] [facility] 2024-01-13 13:15:00 2024-01-13 14:09:05 Outpatient R KVNG HSU VIEN [facility] [id number] [facility] 2024-01-13 13:15:00 2024-01-13 14:09:05 Routine Visit GilbertoKvng [facility] 1.2.840.114 350.1.13.10 4.2.7.2.686 [id number] [facility] 2024-01-13 11:15:00 2024-01-13 11:30:00 Pega Developer Visit Pob, Adc Lab Main Kvng Hsu [facility] PROFESSIO NAL BUILDING 1..840.114 350.1.13.10 4.2.7.2.686 [id number] [facility] 2024-01-06 10:15:00 2024-01-06 10:24:22 Outpatient R KVNG HSU [facility] [id number] [facility] 2024-01-06 10:15:00 2024-01-06 10:24:22 Routine Visit Kvng Hsu [facility] 1..840.114 350.1.13.10 4.2.7.2.686 [id number] [facility] 2024-01-03 10:00:00 2024-01-03 10:15:00 Pega Developer Visit Lab, Wojciech - Toni Gilberto [facility]?RUTHANN GILLETTE MED[facility] OFF[facility] BUILDING 1..840.114 350.1.13.10 4.2.7.2.686 [id number] [facility] 2024-01-03 10:00:00 2024-01-03 10:01:09 Outpatient R HSUSIMONAMYRON HSU [facility] [id number] [facility] 2024-01-02 20:25:00 2024-01-02 21:45:00 Outpatient X MILLS-HAMZAH S, WENDY MILLS-HAMZAH S, WENDY [facility] YANIV [id number] [facility] 2024-01-02 20:25:00 2024-01-02 21:45:00 Emergency Mills-Hamzah s, Wendy [facility] 1..840.114 350.1.13.10 4.2.7.2.686 [id number] [facility] 2023-12-30 10:15:00 2023-12-30 10:32:00 Outpatient R KVNG HSU [facility] [id number] [facility] 2023-12-30 10:15:00 2023-12-30 10:32:00 Routine Visit Kvng Hsu [facility] 1.20.114 350.1.13.10 4.2.7.2.686 [id number] [facility] 2023-12-29 00:00:00 2023-12-29 13:39:56 Abstract Ritu Mar [facility] PRODUCT INTRODUCTION MANAGER [facility] 1.0.114 350.1.13.10 4.2.7.2.686 [id number] [facility] 2023-12-27 00:00:00 2023-12-27 09:40:48 Telephone Kvng Hsu [facility] 1.0.114 350.1.13.10 4.2.7.2.686 [id number] [facility] 2023-12-23 14:30:00 2023-12-23 15:13:03 Routine Visit Kvng Hsu [facility] 1.0.114 350.1.13.10 4.2.7.2.686 [id number] [facility] 2023-12-23 08:45:00 2023-12-23 10:32:01 Outpatient P JEFFERSON TIERNEY [facility] [id number] [facility] 2023-12-23 08:45:00 2023-12-23 10:32:01 Pega Developer Visit Ultrasound, Wojciech-Jefferson Renteria [facility] PRODUCT INTRODUCTION MANAGER [facility] & CHILD [facility] 1.840.114 350.1.13.10 4.2.7.2.686 [id number] [facility] 2023-12-21 00:00:00 2023-12-21 10:55:15 Telephone Kvng Hsu [facility] PROFESSIO NAL BUILDING 1.2840.114 350.1.13.10 4.2.7.2.686 [id number] [facility] 2023-12-12 13:15:00 2023-12-12 13:19:07 Outpatient R KVNG HSU [facility] [id number] [facility] 2023-12-12 13:15:00 2023-12-12 13:19:07 [facility]ine [facility] 1.2840.114 350.1.13.10 4.2.7.2.686 [id number] [facility] 2023-12-09 12:45:00 2023-12-09 12:45:00 Outpatient R KVNG HSU [facility] [id number] [facility] 2023-11-25 12:45:00 2023-11-25 13:20:18 [facility] [id number] [facility] 2023-11-25 12:45:00 2023-11-25 13:20:18 Routine Visit Kvng Hsu [facility] 1.2.840.114 350.1.13.10 4.2.7.2.686 [id number] 134 [id number] [facility] 2023-11-16 00:00:00 2023-11-16 15:44:14 [facility] 1.2.840.114 350.1.13.10 4.2.7.2.686 [id number] 134 [id number] [facility] 2023-11-14 00:00:00 2023-11-14 16:04:58 Telephone Kvng Hsu [facility] PROFESSIO NAL BUILDING 1.2.840.114 350.1.13.10 4.2.7.2.686 [id number] 134 [id number] [facility] 2023-11-14 15:00:00 2023-11-14 15:42:32 Outpatient R THEODORE TUBBS [facility] [id number] [facility] 2023-11-14 15:00:00 2023-11-14 15:42:32 Routine Visit Theodore Tubbs [facility] 1.20.114 350.1.13.10 4.2.7.2.686 [id number] [facility] 2023-10-21 07:30:00 2023-10-21 09:48:53 Outpatient R KVNG HSU [facility] [id number] [facility] 2023-10-21 07:30:00 2023-10-21 09:48:53 Pega Developer Visit Lab, Wojciech Hsu [facility] MEDICAL OFFICE BUILDING 1.84.114 350.1.13.10 4.2.7.2.686 [id number] [facility] 2023-10-21 00:00:00 2023-10-21 00:00:00 Telephone Gilberto [facility] 1.2.114 350.1.13.10 4.2.7.2.686 [id number] [facility] 2023-10-18 08:45:00 2023-10-18 09:00:00 Pega Developer Visit Lab, Wojciech Hsu [facility] MEDICAL OFFICE BUILDING 1.84.114 350.1.13.10 4.2.7.2.686 [id number] [facility] 2023-10-18 08:45:00 2023-10-18 08:45:00 Outpatient R KVNG HSU [facility] [id number] [facility] 2023-10-18 00:00:00 2023-10-18 00:00:00 Case Management Kvng Hsu Ben [facility] 1..114 350.1.13.10 4.2.7.2.686 [id number] [facility] 2023-10-14 14:30:00 2023-10-14 14:50:11 Initial Visit Kvng Hsu [facility] 1..114 350.1.13.10 4.2.7.2.686 [id number] [facility] 2023-10-14 14:30:00 2023-10-14 14:50:11 Outpatient R KVNG HSU [facility] [id number] [facility] 2023-10-07 00:00:00 2023-10-07 00:00:00 Abstract Ritu Mar [facility] PRODUCT INTRODUCTION MANAGER [facility] & CHILD [facility] 1..114 350.1.13.10 4.2.7.2.686 [id number] [facility] 2023-10-06 11:15:00 2023-10-06 12:10:54 Pega Developer Visit Ultrasound, Wojciech-Ritu Schmid [facility] PRODUCT INTRODUCTION MANAGER [facility] CHILD [facility] 1..114 350.1.13.10 4.2.7.2.686 [id number] [facility] 2023-10-06 11:15:00 2023-10-06 12:10:54 Outpatient P RITU MAR [facility] [id number] [facility] 2023-10-06 08:45:00 2023-10-06 08:57:23 Routine Visit Ritu Mar [facility] PRODUCT INTRODUCTION MANAGER [facility] CHILD [facility] 1..114 350.1.13.10 [id number] [id number] [facility] 2023-10-05 00:00:00 2023-10-05 00:00:00 Telephone Ritu Mar [facility] PRODUCT INTRODUCTION MANAGER [facility] CHILD [facility] 1.2840.114 [id number] [id number] [id number] [facility] 2023-09-16 12:45:00 2023-09-16 13:15:13 Outpatient R RITU MAR [facility] [id number] [facility] 2023-09-16 12:45:00 2023-09-16 13:15:13 Routine Visit Ritu Mar [facility] PRODUCT INTRODUCTION MANAGER [facility]ILD [facility] 1.840.114 350.1.13.10 [id number] [id number] [facility] 2023-08-29 14:15:00 2023-08-29 14:41:00 Outpatient NORMAN BEARDEN [facility] [id number] [facility] 2023-08-29 14:15:00 2023-08-29 14:41:00 [employer]ega Developer Visit Ultrasound, [place] Oshea [facility] PRODUCT INTRODUCTION MANAGER [facility] & CHILD [facility] 1.840.114 350.1.13.10 4.2.7.2.686 [id number] [facility] 2023-08-29 00:00:00 2023-08-29 00:00:00 Case Management Adrienne Hart [facility] PRODUCT INTRODUCTION MANAGER [facility] & CHILD [facility] 1.20.114 350.1.13.10 4.2.7.2.686 [id number] [facility] 2023-08-19 12:45:00 2023-08-19 13:18:09 Outpatient R RITU MAR [facility] [id number] [facility] 2023-08-19 12:45:00 2023-08-19 13:18:09 Routine Visit Ritu Mar [facility] PRODUCT INTRODUCTION MANAGER [facility] & CHILD [facility] 1.2.840.114 350.1.13.10 4.2.7.2.686 [id number] [facility] 2023-07-21 12:45:00 2023-07-21 13:17:37 Outpatient R ADRIENNE HART [facility] [id number] [facility] 2023-07-21 12:45:00 2023-07-21 13:17:37 Routine Visit Adrienne Hart [facility] PRODUCT [facility] 1.2840.114 350.1.13.10 4.2.7.2.686 [id number] [facility] 2023-07-21 00:00:00 2023-07-21 00:00:00 Orders Only Doctor Unassigned, [place] [facility] 1.840.114 350.1.13.10 4.2.7.2.686 [id number] [facility] 2023-07-20 00:00:00 2023-07-20 00:00:00 Telephone Adrienne Hart [facility] PRODUCT [facility] 1.0.114 350.1.13.10 4.2.7.2.686 [id number] [facility] 2023-07-12 00:00:00 2023-07-12 00:00:00 Abstract Ritu Mar [facility] PRODUCT INTRODUCTION MANAGER [facility] & CHILD [facility] 1.2840.114 350.1.13.10 4.2.7.2.686 [id number] [facility] 2023-07-06 14:30:00 2023-07-06 14:45:42 Outpatient P NORMAN CHRISTOPHER SANGEETA [facility] [id number] [facility] 2023-07-06 14:30:00 2023-07-06 14:45:42 Pega Developer Visit Ultrasound, [place] Oshea [facility] PRODUCT INTRODUCTION MANAGER [facility] & CHILD [facility] 1.2840.114 350.1.13.10 4.2.7.2.686 [id number] [facility] 2023-06-27 07:45:00 2023-06-27 08:00:00 Pega Developer Visit Lab, PernellRmchRitu Allison [facility] PRODUCT INTRODUCTION MANAGER [facility] & CHILD [facility] 1.2840.114 350.1.13.10 4.2.7.2.686 [id number] [facility] 2023-06-27 07:45:00 2023-06-27 07:45:00 Outpatient R RITU MAR [facility] [id number] [facility] 2023-06-24 00:00:00 2023-06-24 00:00:00 Telephone Ritu Mar [facility] PRODUCT INTRODUCTION MANAGER [facility] & CHILD [facility] 1.2.840.114 350.1.13.10 4.2.7.2.686 [id number] [facility] 2023-06-24 00:00:00 2023-06-24 00:00:00 Telephone Ritu Mar [facility] PRODUCT INTRODUCTION MANAGER [facility] CHILD [facility] 1.840.114 350.1.13.10 4.2.7.2.686 [id number] [facility] 2023-06-22 13:45:00 2023-06-22 14:40:50 Outpatient R RITU MAR [facility] [id number] [facility] 2023-06-22 13:45:00 2023-06-22 14:40:50 Initial Visit Miltonisraelronen Ritu Santacruz [facility] PRODUCT INTRODUCTION MANAGER [facility] 1.2.840.114 350.1.13.10 4.2.7.2.686 [id number] [facility] 2023-06-22 00:00:00 2023-06-22 00:00:00 Orders Only Doctor Unassigned, [place] [facility] 1.2.840.114 350.1.13.10 4.2.7.2.686 [id number] [facility] 2023-06-22 00:00:00 2023-06-22 00:00:00 Refill MiltonisraelMirza hardwickRitu C [facility] PRODUCT INTRODUCTION MANAGER [facility] 1.2.840.114 350.1.13.10 4.2.7.2.686 [id number] [facility] 2022-12-20 15:22:35 2022-12-20 15:22:35 Outpatient [facility] [id number] Kaleb Mercedes 2022-11-30 17:24:32 2022-11-30 17:24:32 Outpatient [facility] [id number] Kaleb Mercedes 2022-08-26 14:15:36 2022-08-26 23:59:00 Outpatient R RADIOLOGY [facility] [id number] [facility] 2022-08-26 14:15:36 2022-08-26 23:59:00 Hospital Encounter Radiology [facility] 1.2.840.114 350.1.13.10 4.2.7.2.686 [id number] [facility] 2022-08-26 14:14:51 2022-08-26 14:14:51 Hospital Encounter Radiology [facility] 1.2.840.114 350.1.13.10 4.2.7.2.686 [id number] [facility] 2022-08-23 00:00:00 2022-08-23 00:00:00 Outpatient R RADIOLOGY [facility] [id number] [facility] 2022-08-10 13:05:04 2022-08-10 13:05:04 Outpatient [facility] [id number] Kaleb Mercedes 2022-08-05 09:44:03 2022-08-05 09:44:03 Outpatient [facility] [id number] Kaleb Mercedes 2022-07-21 13:00:00 2022-07-21 14:07:30 Outpatient R RITU MAR [facility] [id number] [facility] 2022-07-21 13:00:00 2022-07-21 14:07:30 Office Visit Ritu Mar [facility] PRODUCT INTRODUCTION MANAGER [facility] & CHILD [facility] 1..114 350.1.13.10 4.2.7.2.686 [id number] [facility] 2022-07-21 00:00:00 2022-07-21 00:00:00 Orders Only Doctor Unassigned, [place] [facility] 1..114 350.1.13.10 4.2.7.2.686 [id number] [facility] 2021-05-01 08:00:00 2021-05-01 08:00:00 Outpatient R [facility] [id number] [facility] 2021-05-01 00:00:00 2021-05-01 00:00:00 Orders Only Doctor Unassigned, [place] [facility] 1..114 350.1.13.10 4.2.7.2.686 [id number] [facility] 2021-04-29 00:00:00 2021-04-29 00:00:00 Telephone Ritu Mar [facility] PRODUCT INTRODUCTION MANAGER [facility] & CHILD [facility] 1..114 350.1.13.10 4.2.7.2.686 [id number] [facility] 2021-04-09 10:21:00 2021-04-09 13:06:00 Outpatient C JOSE ELLISON [facility] JAMEEL Santacruz [id number] [facility] 2020-12-22 15:15:00 2020-12-22 15:15:00 Outpatient R RITU MAR [facility] [id number] [facility] 2020-12-22 15:15:00 2020-12-22 15:15:00 Outpatient R RITU MAR [facility] [id number] [facility] 2020-11-20 09:15:00 2020-11-20 09:15:00 Outpatient R RITU MAR INMB [facility] [id number] [facility] 2020-11-06 08:18:54 2020-11-06 08:38:59 Office Visit Ritu Mar IN[place] PRODUCT INTRODUCTION MANAGER [facility] & CHILD [facility] 1.2.840.114 350.1.13.10 4.2.7.2.686 [id number] [facility] 2020-11-06 08:18:54 2020-11-06 08:38:59 Office Visit Ritu Mar [place] PRODUCT INTRODUCTION MANAGER [facility] CHILD [facility] 1.2.840.114 350.1.13.10 4.2.7.2.686 [id number] 2020-11-06 08:15:00 2020-11-06 08:15:00 [facility] [id number] [facility] 2020 15:15:00 2020 15:15:00 Outpatient R RITU MAR [facility] [id number] [facility] 2020-10-08 00:00:00 2020-10-08 00:00:00 Telephone Ritu Mar [facility] PRODUCT INTRODUCTION MANAGER [facility] & CHILD [facility] 1.2.840.114 350.1.13.10 4.2.7.2.686 [id number] [facility] 2020-10-07 15:01:18 2020-10-07 16:07:47 Office Visit Ritu Mar [facility] PRODUCT INTRODUCTION MANAGER [facility] CHILD [facility] 1.2.840.114 350.1.13.10 4.2.7.2.686 [id number] [facility] 2020-10-07 15:15:00 2020-10-07 15:15:00 Outpatient R RITU MAR [facility] [id number] [facility] 2020-09-30 00:00:00 2020-09-30 00:00:00 Patient Outreach Jah Cueto [facility] 1.2.840.114 350.1.13.10 4.2.7.2.686 [id number] [facility] 2020-09-12 00:00:00 2020-09-12 00:00:00 Telephone Ritu Mar [facility] PRODUCT INTRODUCTION MANAGER [facility] 1.2.840.114 350.1.13.10 4.2.7.2.686 [id number] [facility] 2020-09-09 15:42:23 2020-09-09 16:40:48 Office Visit Ritu Mar [facility] PRODUCT INTRODUCTION MANAGER [facility] CHILD [facility] 1.2.840.114 350.1.13.10 4.2.7.2.686 [id number] [facility] 2020-09-09 16:00:00 2020-09-09 16:00:00 Outpatient R RITU MAR [facility] [id number] [facility] 2020-05-05 14:19:41 2020-05-05 14:48:30 Office Visit Ritu Mar Noam [facility] PRODUCT INTRODUCTION MANAGER [facility] & CHILD [facility] 1.84.114 350.1.13.10 4.2.7.2.686 [id number] [facility] 2020-05-05 14:30:00 2020-05-05 14:30:00 Outpatient R RITU MAR [facility] [id number] [facility] 2020-04-03 08:30:00 2020-04-03 08:45:00 Pega Developer Visit Lab, Ang-Rmchp Peggy Dale [facility] PRODUCT INTRODUCTION MANAGER [facility] & CHILD [facility] 1.84.114 350.1.13.10 4.2.7.2.686 [id number] [facility] 2020-04-03 08:30:00 2020-04-03 08:30:00 Outpatient R PEGGY DALE [facility] [id number] [facility] 2020-03-28 08:30:00 2020-03-28 08:30:00 Outpatient R [facility] [id number] [facility] 2020-02-27 10:48:17 2020-02-27 11:25:47 Office Visit Peggy Dale [facility] PRODUCT INTRODUCTION MANAGER [facility] CHILD [facility] 1.84.114 350.1.13.10 4.2.7.2.686 [id number] [facility] 2020-02-27 11:00:00 2020-02-27 11:00:00 Outpatient R PEGGY DALE [facility] [id number] [facility] 2019-12-31 08:56:50 2019-12-31 09:26:50 Office Visit Peggy Dale [facility] PRODUCT INTRODUCTION MANAGER [facility] & CHILD [facility] 1.84.114 350.1.13.10 4.2.7.2.686 [id number] [facility] 2019-12-31 09:00:00 2019-12-31 09:00:00 Outpatient R PEGGY DALE [facility] [id number] [facility] 2019-12-31 00:00:00 2019-12-31 00:00:00 Orders Only Doctor Unassigned, [place] [facility] 1.2.840.114 350.1.13.10 4.2.7.2.686 [id number] [facility] 2019-12-25 00:00:00 2019-12-25 00:00:00 Patient Secure Msg Doctor Unassigned, [place] [facility] PRODUCT INTRODUCTION MANAGER [facility] & CHILD [facility] 1.2.840.114 350.1.13.10 4.2.7.2.686 [id number] [facility] 2019-12-24 00:00:00 2019-12-24 00:00:00 Case Management Simona Du [facility] PRODUCT INTRODUCTION MANAGER [facility] & CHILD [facility] 1.2840.114 350.1.13.10 4.2.7.2.686 [id number] [facility] 2019-12-21 12:45:27 2019-12-21 13:38:16 Office Visit [facility] INTRODUCTION MANAGER [facility] & CHILD [facility] 1.2840.114 350.1.13.10 4.2.7.2.686 [id number] [facility] 2019-12-21 12:45:00 2019-12-21 12:45:00 Outpatient R SIMONA DU [facility] [id number] [facility] 2019-12-21 00:00:00 2019-12-21 00:00:00 Orders Only Doctor Unassigned, [place] [facility] 1.2840.114 350.1.13.10 4.2.7.2.686 [id number] [facility] Results Test Description Test Time Test Comments Results Resul t Comments Source PHYSICIAN ORDERS 2024-02-23 17:10:23 Ordered by an unspecified provider. [facility] [id number] 11:19:05* Test Item Value Reference Range Interpretation Comme nts WBC (test code = 6690-2) 18.04 4.30-11.10 H RBC (test code = 789-8) 4.09 3.93-5.25 HGB (test code = 718-7) 12.5 g/dL 11.6-15.0 HCT (test code = 4544-3) 36.5 % 35.7-45.2 MCV (test code = 787-2) 89.2 fL 80.6-95.5 MCH (test code = 785-6) 30.6 pg 25.9-32.8 MCHC (test code = 786-4) 34.2 g/dL 31.6-35.1 RDW-SD (test code = 63114-0) 47.2 fL 39.0-49.9 RDW-CV (test code = 788-0) 14.7 % 12.0-15.5 PLT (test code = 777-3) 266 166-358 MPV (test code = 86672-4) 10.0 fL 9.5-12.9 NRBC/100 WBC (test code = 5683214110) 0.0 0.0-10.0 NRBC x10^3 (test code = 7678739598) See_Comment [Automated message] The system which generated this result transmitted reference range: 10*3/?L. The reference range was not used to interpret this result as normal/abnormal. GRAN MAT (NEUT) % (test code = 770-8) 76.7 % IMM GRAN % (test code = 0759901043) 0.90 % LYMPH % (test code = 736-9) 14.7 % MONO % (test code = 5905-5) 7.4 % EOS % (test code = 713-8) 0.1 % BASO % (test code = 706-2) 0.2 % GRAN MAT x10^3(ANC) (test code = 7981958167) 13.82 10*3/uL 1.88-7.09 H IMM GRAN x10^3 (test code = 8296662704) 0.16 10*3/uL 0.00-0.06 H LYMPH x10^3 (test code = 731-0) 2.66 10*3/uL 1.32-3.29 MONO x10^3 (test code = 742-7) 1.34 10*3/uL 0.33-0.92 H EOS x10^3 (test code = 711-2) 0.03-0.39 L BASO x10^3 (test code = 704-7) 0.04 10*3/uL 0.01-0.07 Lab Interpretation (test code = 91934-7) Abnormal [facility] [place] Only - [id number] 06:21:16* Test Item Value Reference Range Interpretation Comme nts RPR (Qualitative) (test code = 02518-0) Nonreactive Nonreactive Lab Interpretation (test cod e = 76026-9) Normal [facility] CenterHepatitis B Surface [id number] 17:52:27 * Test Item Value Reference Range Interpretation Comme nts HBsAg Semi-Quantitative (corie t code = 5195-3) 0.07 Negative [facility] Center[facility]axial [id number] 15:30:00 Delia Gilmore III, CRNA ? ? 01/14/2024 11:02 AM Central Neuraxial Block Date/Time: 01/14/2024 10:30 AM Performed by: Delia Gilmore III, CRNAAuthorized by: Felicia Lawton MD ?End Time: 01/14/2024 10:50 AMReason for Block: OB request, Patient request, Labor analgesia, Surgical anesthesia and Post-op painmanagementStaff: ? ?Resident/TELEPHONE INFORMATION CLERK: Delia Gilmore III, CRNA ?Performed by: resident/CARMINAPreanesthetic Checklist: patient identified, IV checked, risks and benefits explained, monitors and equipment checked, timeout performed, pre-op evaluation, site marked and anesthesia consentProcedure: ?Type of Neuraxial: Epidural ?Epidural Description: 1st attempt ? Sterility Prep cap, drape, gloves, hand hygiene and mask ? ?Sedation Level no sedation ?Patient Position: sitting ?Prep: Betadine and patient draped ? ?Monitoring: heart rate, continuous pulse ox, heart rate / toco and NIBP ?Location: lumbar (1-5) ?Lumbar: L3-L4 ?Approach: midline ? ?Technique: FAUSTO air and catheter ?Guidance with: landmark technique}Epidural/Spinal Foster and/or Catheter: ?Epidural/Spinal Kit: BBraun ?Needle Type: Tuohy ?Needle Gauge: 17 G ?Needle Length: 3.5 in (8.89 cm) ?Needle Insertion Depth: 8 ?Catheter Type: multiport ? ?Catheter Size: 19 G ? ?Catheter at Skin Depth: 14 ?Number of Attempts: 1 ?Test Dose: lidocaine 1.5% with epinephrine 1-to-200,000 ? ?Dose: 3 cc ? ?Catheter Securement Method: surgical tape and TegadermAssessment: ?Sensory Level: above T10 ?Block Outcome: patient tolerated procedure well? ?Procedure Assessment: patient tolerated procedure well with no complicationsNotes: ? Smooth and atraumatic, (+) Local, (+) STF [facility] CenterHIV 1/2 Ag-Ab with [id number] 11:17:27* Test Item Value Reference Range Interpretation Comme nts HIV Semi-quantitative (test code = 12819-6) 0.16 Negative KRISTY (test code = KRISTY) Non-reactive for HIV-1 antigen and HIV-1/HIV-2 antibodies. ?No laboratory evidence of HIV infection. ?Repeat in 2-4 weeks if acute HIV infection is suspected. [facility] CenterCbc with [id number] 10:39:46* Test Item Value Reference Range Interpretation Comme nts WBC (test code = 6690-2) 11.04 4.30-11.10 RBC (test code = 789-8) 4.27 3.93-5.25 HGB (test code = 718-7) 12.9 g/dL 11.6-15.0 HCT (test code = 4544-3) 37.9 % 35.7-45.2 MCV (test code = 787-2) 88.8 fL 80.6-95.5 MCH (test code = 785-6) 30.2 pg 25.9-32.8 MCHC (test code = 786-4) 34.0 g/dL 31.6-35.1 RDW-SD (test code = 36025-8) 46.5 fL 39.0-49.9 RDW-CV (test code = 788-0) 14.6 % 12.0-15.5 PLT (test code = 777-3) 308 166-358 MPV (test code = 36395-0) 9.4 fL 9.5-12.9 L NRBC/100 WBC (test code = 7183934121) 0.0 0.0-10.0 NRBC x10^3 (test code = 1976369593) See_Comment [Automated messa ge] The system which generated this result transmitted reference range: 10*3/?L. The reference range was not used to interpret this result as normal/abnormal. GRAN MAT (NEUT) % (test code = 770-8) 64.9 % IMM GRAN % (test code = 7108610168) 0.70 % LYMPH % (test code = 736-9) 26.6 % MONO % (test code = 5905-5) 6.4 % EOS % (test code = 713-8) 1.0 % BASO % (test code = 706-2) 0.4 % GRAN MAT x10^3(ANC) (test code = 8485391150) 7.16 10*3/uL 1.88-7.09 H IMM GRAN x10^3 (test code = 7814911280) 0.08 10*3/uL 0.00-0.06 H LYMPH x10^3 (test code = 731-0) 2.94 10*3/uL 1.32-3.29 MONO x10^3 (test code = 742-7) 0.71 10*3/uL 0.33-0.92 EOS x10^3 (test code = 711-2) 0.11 10*3/uL 0.03-0.39 BASO x10^3 (test code = 704-7) 0.04 10*3/uL 0.01-0.07 Lab Interpretation (test code = 56177-2) Abnormal [facility] CenterType and Screen - ONCE [id number] 10:20:00* Test Item Value Reference Range Interpretation Comme nts ABO & RH (test code = 20) O Positive IAT (test code = 1185) Negative [facility] Urinalysis w/o Specific [id number] 18:52:00* Test Item Value Reference Range Interpretation Comme nts POCT PH U (test code = 3254) N/A 5-8 POCT U LEUK EST (test code = 3263) N/A Negative - Negative POCT U NIT (test code = 3262) N/A Negative - Negati ve POCT U PROT (test code = 3259) Trace Negative - Negat veronica POCT U GLU (test code = 3256) Negative Negative - Negati ve POCT U KETONE (test code = 3258) N/A Negative - Neg ative POCT U BLD (test code = 3257) N/A Negative - Negati ve [facility] Urinalysis w/o Specific [id number] 15:10:00* Test Item Value Reference Range Interpretation Comme nts POCT PH U (test code = 3254) n/a 5-8 POCT U LEUK EST (test code = 3263) n/a Negative - Negative POCT U NIT (test code = 3262) n/a Negative - Negati ve POCT U PROT (test code = 3259) negative Negative - Negat veronica POCT U GLU (test code = 3256) negative Negative - Negati ve POCT U KETONE (test code = 3258) n/a Negative - Neg ative POCT U BLD (test code = 3257) n/a Negative - Negati ve [facility] Urinalysis w/o Specific Bitgygd7298-64-75 15:11:00* Test Item Value Reference Range Interpretation Comme nts POCT PH U (test code = 3254) 5 mg/dl 5-8 POCT U LEUK EST (test code = 3263) Negative Negative - Negative POCT U NIT (test code = 3262) Negative Negative - Negati ve POCT U PROT (test code = 3259) Negative Negative - Negat veronica POCT U GLU (test code = 3256) Negative Negative - Negati ve POCT U KETONE (test code = 3258) negative Negative - Neg ative POCT U BLD (test code = 3257) 250 Negative - Negati ve [facility] CenterDSU [id number] 13:06:38Ordered by an unspecified provider.[facility] CenterPOCT Urinalysis w/o Specific Rhhswqk1952-17-35 20:07:00* Test Item Value Reference Range Interpretation Comme nts POCT PH U (test code = 3254) n/a 5-8 POCT U LEUK EST (test code = 3263) n/a Negative - Negative POCT U NIT (test code = 3262) n/a Negative - Negati ve POCT U PROT (test code = 3259) negative Negative - Negat veronica POCT U GLU (test code = 3256) negative Negative - Negati ve POCT U KETONE (test code = 3258) n/a Negative - Neg ative POCT U BLD (test code = 3257) n/a Negative - Negati ve [facility] Urinalysis w/o Specific [id number] 18:04:00* Test Item Value Reference Range Interpretation Comme nts POCT PH U (test code = 3254) n/a 5-8 POCT U LEUK EST (test code = 3263) n/a Negative - Negative POCT U NIT (test code = 3262) n/a Negative - Negati ve POCT U PROT (test code = 3259) Negative Negative - Negat veronica POCT U GLU (test code = 3256) Normal Negative - Negati ve POCT U KETONE (test code = 3258) n/a Negative - Neg ative POCT U BLD (test code = 3257) n/a Negative - Negati ve [facility] CenterPO[facility] Urinalysis w/o Specific [id number] 18:08:00* Test Item Value Reference Range Interpretation Comme nts POCT PH U (test code = 3254) n/a 5-8 POCT U LEUK EST (test code = 3263) n/a Negative - Negative POCT U NIT (test code = 3262) n/a Negative - Negati ve POCT U PROT (test code = 3259) negative Negative - Negat veronica POCT U GLU (test code = 3256) negative Negative - Negati ve POCT U KETONE (test code = 3258) n/a Negative - Neg ative POCT U BLD (test code = 3257) n/a Negative - Negati ve [facility] [id number] 16:25:38 Ordered by an unspecified provider.[facility] [id number] 15:52:22Ordered by an unspecified provider.[facility] [id number] 15:50:48Ordered by an unspecified provider.[facility]o Specific [id number] 20:26:00* Test Item Value Reference Range Interpretation Comme nts POCT PH U (test code = 3254) n/a 5-8 POCT U LEUK EST (test code = 3263) n/a Negative - Negative POCT U NIT (test code = 3262) n/a Negative - Negati ve POCT U PROT (test code = 3259) negative Negative - Negat veronica POCT U GLU (test code = 3256) negative Negative - Negati ve POCT U KETONE (test code = 3258) n/a Negative - Neg ative POCT U BLD (test code = 3257) n/a Negative - Negati ve [facility] Urinalysis w/o Specific [id number] 19:38:00* Test Item Value Reference Range Interpretation Comme nts POCT PH U (test code = 3254) N/A 5-8 POCT U LEUK EST (test code = 3263) N/A Negative - Negative POCT U NIT (test code = 3262) N/A Negative - Negati ve POCT U PROT (test code = 3259) Negative Negative - Negat veronica POCT U GLU (test code = 3256) 2+ Negative - Negati ve POCT U KETONE (test code = 3258) N/A Negative - Neg ative POCT U BLD (test code = 3257) N/A Negative - Negati ve [facility] Specific [id number] 19:38:00* Test Item Value Reference Range Interpretation Comme nts POCT PH U (test code = 3254) N/A 5-8 POCT U LEUK EST (test code = 3263) N/A Negative - Negative POCT U NIT (test code = 3262) N/A Negative - Negati ve POCT U PROT (test code = 3259) Negative Negative - Negat veronica POCT U GLU (test code = 3256) 2+ Negative - Negati ve POCT U KETONE (test code = 3258) N/A Negative - Neg ative POCT U BLD (test code = 3257) N/A Negative - Negati ve [facility] 2023-10-06 17:10:22Ordered by an unspecified provider.[facility] URINALYSIS W SPECIFIC [id number] 13:32:00* Test Item Value Reference Range Interpretation Comme nts POCT U SP GRAV (test code = 3255) . 1.005-1.025 POCT PH U (test code = 3254) . 5-8 POCT U LEUK EST (test code = 3263) . Negative - N egative POCT U NIT (test code = 3262) . Negative - Negati ve POCT U PROT (test code = 3259) trace Negative - Negat veronica POCT U GLU (test code = 3256) neg Negative - Negati ve POCT U KETONE (test code = 3258) . Negative - Neg ative POCT U UROBILI (test code = 3260) . 0.2-1 POCT U BILI (test code = 3261) . Negative - Negat veronica POCT U BLD (test code = 3257) . Negative - Negati ve POCT U COLOR (test code = 3266) . POCT U APPEAR (test code = 3267) . [facility] URINALYSIS W SPECIFIC [id number] 13:32:00* Test Item Value Reference Range Interpretation Comme nts POCT U SP GRAV (test code = 3255) . 1.005-1.025 POCT PH U (test code = 3254) . 5-8 POCT U LEUK EST (test code = 3263) . Negative - N egative POCT U NIT (test code = 3262) . Negative - Negati ve POCT U PROT (test code = 3259) trace Negative - Negat veronica POCT U GLU (test code = 3256) neg Negative - Negati ve POCT U KETONE (test code = 3258) . Negative - Neg ative POCT U UROBILI (test code = 3260) . 0.2-1 POCT U BILI (test code = 3261) . Negative - Negat veronica POCT U BLD (test code = 3257) . Negative - Negati ve POCT U COLOR (test code = 3266) . POCT U APPEAR (test code = 3267) . [facility] URINALYSIS W SPECIFIC [id number] 13:32:00* Test Item Value Reference Range Interpretation Comme nts POCT U SP GRAV (test code = 3255) . 1.005-1.025 POCT PH U (test code = 3254) . 5-8 POCT U LEUK EST (test code = 3263) . Negative - N egative POCT U NIT (test code = 3262) . Negative - Negati ve POCT U PROT (test code = 3259) trace Negative - Negat veronica POCT U GLU (test code = 3256) neg Negative - Negati ve POCT U KETONE (test code = 3258) . Negative - Neg ative POCT U UROBILI (test code = 3260) . 0.2-1 POCT U BILI (test code = 3261) . Negative - Negat veronica POCT U BLD (test code = 3257) . Negative - Negati ve POCT U COLOR (test code = 3266) . POCT U APPEAR (test code = 3267) . [facility] URINALYSIS W SPECIFIC [id number] 13:32:00* Test Item Value Reference Range Interpretation Comme nts POCT U SP GRAV (test code = 3255) . 1.005-1.025 POCT PH U (test code = 3254) . 5-8 POCT U LEUK EST (test code = 3263) . Negative - N egative POCT U NIT (test code = 3262) . Negative - Negati ve POCT U PROT (test code = 3259) trace Negative - Negat veronica POCT U GLU (test code = 3256) neg Negative - Negati ve POCT U KETONE (test code = 3258) . Negative - Neg ative POCT U UROBILI (test code = 3260) . 0.2-1 POCT U BILI (test code = 3261) . Negative - Negat veronica POCT U BLD (test code = 3257) . Negative - Negati ve POCT U COLOR (test code = 3266) . POCT U APPEAR (test code = 3267) . [facility] URINALYSIS W SPECIFIC [id number] 13:32:00* Test Item Value Reference Range Interpretation Comme nts POCT U SP GRAV (test code = 3255) . 1.005-1.025 POCT PH U (test code = 3254) . 5-8 POCT U LEUK EST (test code = 3263) . Negative - N egative POCT U NIT (test code = 3262) . Negative - Negati ve POCT U PROT (test code = 3259) trace Negative - Negat veronica POCT U GLU (test code = 3256) neg Negative - Negati ve POCT U KETONE (test code = 3258) . Negative - Neg ative POCT U UROBILI (test code = 3260) . 0.2-1 POCT U BILI (test code = 3261) . Negative - Negat veronica POCT U BLD (test code = 3257) . Negative - Negati ve POCT U COLOR (test code = 3266) . POCT U APPEAR (test code = 3267) . [facility] URINALYSIS W SPECIFIC [id number] 13:32:00* Test Item Value Reference Range Interpretation Comme nts POCT U SP GRAV (test code = 3255) . 1.005-1.025 POCT PH U (test code = 3254) . 5-8 POCT U LEUK EST (test code = 3263) . Negative - N egative POCT U NIT (test code = 3262) . Negative - Negati ve POCT U PROT (test code = 3259) trace Negative - Negat veronica POCT U GLU (test code = 3256) neg Negative - Negati ve POCT U KETONE (test code = 3258) . Negative - Neg ative POCT U UROBILI (test code = 3260) . 0.2-1 POCT U BILI (test code = 3261) . Negative - Negat veronica POCT U BLD (test code = 3257) . Negative - Negati ve POCT U COLOR (test code = 3266) . POCT U APPEAR (test code = 3267) . [facility] URINALYSIS W SPECIFIC [id number] 19:02:00* Test Item Value Reference Range Interpretation Comme nts POCT U SP GRAV (test code = 3255) . 1.005-1.025 POCT PH U (test code = 3254) . 5-8 POCT U LEUK EST (test code = 3263) . Negative - N egative POCT U NIT (test code = 3262) . Negative - Negati ve POCT U PROT (test code = 3259) trace Negative - Negat veronica POCT U GLU (test code = 3256) neg Negative - Negati ve POCT U KETONE (test code = 3258) . Negative - Neg ative POCT U UROBILI (test code = 3260) . 0.2-1 POCT U BILI (test code = 3261) . Negative - Negat veronica POCT U BLD (test code = 3257) . Negative - Negati ve POCT U COLOR (test code = 3266) . POCT U APPEAR (test code = 3267) . [facility] URINALYSIS W SPECIFIC [id number] 18:46:00* Test Item Value Reference Range Interpretation Comme nts POCT U SP GRAV (test code = 3255) . 1.005-1.025 POCT PH U (test code = 3254) . 5-8 POCT U LEUK EST (test code = 3263) . Negative - N egative POCT U NIT (test code = 3262) . Negative - Negati ve POCT U PROT (test code = 3259) trace Negative - Negat veronica POCT U GLU (test code = 3256) neg Negative - Negati ve POCT U KETONE (test code = 3258) . Negative - Neg ative POCT U UROBILI (test code = 3260) . 0.2-1 POCT U BILI (test code = 3261) . Negative - Negat veronica POCT U BLD (test code = 3257) . Negative - Negati ve POCT U COLOR (test code = 3266) . POCT U APPEAR (test code = 3267) . [facility] [id number] 19:34:00* Test Item Value Reference Range Interpretation Comme nts POCT PREG (test code = 1605) Positive On board controls acceptable with C Line (test code = 3574) Yes POCT PREG LOT # (test code = 3575) POCT PREG TEST DATE ( test code = 3576) [facility] Urinalysis w/o Specific [id number] 19:34:00* Test Item Value Reference Range Interpretation Comme nts POCT PH U (test code = 3254) 5 mg/dl 5-8 POCT U LEUK EST (test code = 3263) neg Negative - Negative POCT U NIT (test code = 3262) neg Negative - Negati ve POCT U PROT (test code = 3259) trace Negative - Negat veronica POCT U GLU (test code = 3256) neg Negative - Negati ve POCT U KETONE (test code = 3258) neg Negative - Neg ative POCT U BLD (test code = 3257) neg Negative - Negati ve [facility] [id number] 19:34:00* Test Item Value Reference Range Interpretation Comme nts POCT PREG (test code = 1605) Positive On board controls acceptable with C Line (test code = 3574) Yes POCT PREG LOT # (test code = 3575) POCT PREG TEST DATE ( test code = 3576) [facility] Urinalysis w/o Specific [id number] 19:34:00* Test Item Value Reference Range Interpretation Comme nts POCT PH U (test code = 3254) 5 mg/dl 5-8 POCT U LEUK EST (test code = 3263) neg Negative - Negative POCT U NIT (test code = 3262) neg Negative - Negati ve POCT U PROT (test code = 3259) trace Negative - Negat veronica POCT U GLU (test code = 3256) neg Negative - Negati ve POCT U KETONE (test code = 3258) neg Negative - Neg ative POCT U BLD (test code = 3257) neg Negative - Negati ve [facility] [id number] 19:34:00* Test Item Value Reference Range Interpretation Comme nts POCT PREG (test code = 1605) Positive On board controls acceptable with C Line (test code = 3574) Yes POCT PREG LOT # (test code = 3575) POCT PREG TEST DATE ( test code = 3576) [facility] Urinalysis w/o Specific [id number] 19:34:00* Test Item Value Reference Range Interpretation Comme nts POCT PH U (test code = 3254) 5 mg/dl 5-8 POCT U LEUK EST (test code = 3263) neg Negative - Negative POCT U NIT (test code = 3262) neg Negative - Negati ve POCT U PROT (test code = 3259) trace Negative - Negat veronica POCT U GLU (test code = 3256) neg Negative - Negati ve POCT U KETONE (test code = 3258) neg Negative - Neg ative POCT U BLD (test code = 3257) neg Negative - Negati ve [facility] [id number] 19:34:00* Test Item Value Reference Range Interpretation Comme nts POCT PREG (test code = 1605) Positive On board controls acceptable with C Line (test code = 3574) Yes POCT PREG LOT # (test code = 3575) POCT PREG TEST DATE ( test code = 3576) [facility] Urinalysis w/o Specific [id number] 19:34:00* Test Item Value Reference Range Interpretation Comme nts POCT PH U (test code = 3254) 5 mg/dl 5-8 POCT U LEUK EST (test code = 3263) neg Negative - Negative POCT U NIT (test code = 3262) neg Negative - Negati ve POCT U PROT (test code = 3259) trace Negative - Negat veronica POCT U GLU (test code = 3256) neg Negative - Negati ve POCT U KETONE (test code = 3258) neg Negative - Neg ative POCT U BLD (test code = 3257) neg Negative - Negati ve [facility] [id number] 19:34:00* Test Item Value Reference Range Interpretation Comme nts POCT PREG (test code = 1605) Positive On board controls acceptable with C Line (test code = 3574) Yes POCT PREG LOT # (test code = 3575) POCT PREG TEST DATE ( test code = 3576) [facility] Urinalysis w/o Specific [id number] 19:34:00* Test Item Value Reference Range Interpretation Comme nts POCT PH U (test code = 3254) 5 mg/dl 5-8 POCT U LEUK EST (test code = 3263) neg Negative - Negative POCT U NIT (test code = 3262) neg Negative - Negati ve POCT U PROT (test code = 3259) trace Negative - Negat veronica POCT U GLU (test code = 3256) neg Negative - Negati ve POCT U KETONE (test code = 3258) neg Negative - Neg ative POCT U BLD (test code = 3257) neg Negative - Negati ve [facility] [id number] 19:34:00* Test Item Value Reference Range Interpretation Comme nts POCT PREG (test code = 1605) Positive On board controls acceptable with C Line (test code = 3574) Yes POCT PREG LOT # (test code = 3575) POCT PREG TEST DATE ( test code = 3576) [facility] Urinalysis w/o Specific [id number] 19:34:00* Test Item Value Reference Range Interpretation Comme nts POCT PH U (test code = 3254) 5 mg/dl 5-8 POCT U LEUK EST (test code = 3263) neg Negative - Negative POCT U NIT (test code = 3262) neg Negative - Negati ve POCT U PROT (test code = 3259) trace Negative - Negat veronica POCT U GLU (test code = 3256) neg Negative - Negati ve POCT U KETONE (test code = 3258) neg Negative - Neg ative POCT U BLD (test code = 3257) neg Negative - Negati ve [facility] [id number] 19:34:00* Test Item Value Reference Range Interpretation Comme nts POCT PREG (test code = 1605) Positive On board controls acceptable with C Line (test code = 3574) Yes POCT PREG LOT # (test code = 3575) POCT PREG TEST DATE ( test code = 3576) [facility] Urinalysis w/o Specific [id number] 19:34:00* Test Item Value Reference Range Interpretation Comme nts POCT PH U (test code = 3254) 5 mg/dl 5-8 POCT U LEUK EST (test code = 3263) neg Negative - Negative POCT U NIT (test code = 3262) neg Negative - Negati ve POCT U PROT (test code = 3259) trace Negative - Negat veronica POCT U GLU (test code = 3256) neg Negative - Negati ve POCT U KETONE (test code = 3258) neg Negative - Neg ative POCT U BLD (test code = 3257) neg Negative - Negati ve [facility] [id number] 19:34:00* Test Item Value Reference Range Interpretation Comme nts POCT PREG (test code = 1605) Positive On board controls acceptable with C Line (test code = 3574) Yes POCT PREG LOT # (test code = 3575) POCT PREG TEST DATE ( test code = 3576) [facility] Urinalysis w/o Specific [id number] 19:34:00* Test Item Value Reference Range Interpretation Comme nts POCT PH U (test code = 3254) 5 mg/dl 5-8 POCT U LEUK EST (test code = 3263) neg Negative - Negative POCT U NIT (test code = 3262) neg Negative - Negati ve POCT U PROT (test code = 3259) trace Negative - Negat veronica POCT U GLU (test code = 3256) neg Negative - Negati ve POCT U KETONE (test code = 3258) neg Negative - Neg ative POCT U BLD (test code = 3257) neg Negative - Negati ve [facility] [id number] 22:02:31* Test Item Value Reference Range Interpretation Comme nts POCT Creatinine (test code = 7508881283) 0.6 mg/dL 0.5-1.1 Lab Interpretation (test cod e = 47812-3) [id number] 18:23:23* Test Item Value Reference Range Interpretation Comme nts Syphilis IgG/IgM (test code = 96458-6) Non-reactive Non-reactive KRISTY (test code = KRISTY) Non-reactive - No serologic evidence of T. pallidum infection. Cannot exclude incubating or early syphilis. Submit a second specimen in 2-4 weeks if syphilis is clinically suspected. Equivocal - Further testing to follow. Reactive - Further testing to follow. Lab Interpretation (test code = 66735-5) [facility] [id number] 18:23:23* Test Item Value Reference Range Interpretation Comme nts Syphilis IgG/IgM (test code = 67776-9) Non-reactive Non-reactive KRISTY (test code = KRISTY) Non-reactive - No serologic evidence of T. pallidum infection. Cannot exclude incubating or early syphilis. Submit a second specimen in 2-4 weeks if syphilis is clinically suspected. Equivocal - Further testing to follow. Reactive - Further testing to follow. Lab Interpretation (test code = 63235-7) [facility] WITH [id number] 08:08:09* Test Item Value Reference Range Interpretation Comme nts HIV Semi-quantitative (test code = 73165-4) Negative Negative KRISTY (test code = KRISTY) Non-reactive for HIV-1 antigen and HIV-1/HIV-2 antibodies. ?No laboratory evidence of HIV infection. ?Repeat in 2-4 weeks if acute HIV infection is suspected. [facility] 1/2 AG-AB WITH [id number] 08:08:09* Test Item Value Reference Range Interpretation Comme nts HIV Semi-quantitative (test code = 44032-1) Negative Negative KRISTY (test code = KRISTY) Non-reactive for HIV-1 antigen and HIV-1/HIV-2 antibodies. ?No laboratory evidence of HIV infection. ?Repeat in 2-4 weeks if acute HIV infection is suspected. [facility] [id number] 10:48:00* Test Item Value Reference Range Interpretation Comme nts PREG UR (test code = PGU) NEGATIVE NEGATIVE POCT [id number] 14:48:00* Test Item Value Reference Range Interpretation Comme nts POCT PREG (test code = 1605) Negative On board controls acceptable with C Line (test code = 3574) Yes POCT PREG LOT # (test code = 3575) POCT PREG TEST DATE ( test code = 3576) [facility] [id number] 14:48:00* Test Item Value Reference Range Interpretation Comme nts POCT PREG (test code = 1605) Negative On board controls acceptable with C Line (test code = 3574) Yes POCT PREG LOT # (test code = 3575) POCT PREG TEST DATE ( test code = 3576) [facility] 04:47:46* Test Item Value Reference Range Interpretation Comme nts PROLACTIN (test code = 8553176051) 12.7 ng/mL 3.3-26.7 Lab Interpretation (test cod e = 67239-7) [facility]21[facility] 04:47:46* Test Item Value Reference Range Interpretation Comme nts PROLACTIN (test code = 2875644664) 12.7 ng/mL 3.3-26.7 Lab Interpretation (test cod e = 62362-7) Normal [facility] CenterTH[facility] [id number] 04:05:14 * Test Item Value Reference Range Interpretation Comme nts TSH (test code = 8098962300) See_Comment Biotin has been reported to cause a negative bias, interpret results relative to patient's use of biotin. [Automated message] The system which generated this result transmitted reference range: 0.45 - 4.70 mIU/L. The reference range was not used to interpret this result as normal/abnormal. Lab Interpretation (test code = 21419-2) Normal [facility] [id number] 04:05:14 * Test Item Value Reference Range Interpretation Comme nts TSH (test code = 0323272616) See_Comment Biotin has been reported to cause a negative bias, interpret results relative to patient's use of biotin. [Automated message] The system which generated this result transmitted reference range: 0.45 - 4.70 mIU/L. The reference range was not used to interpret this result as normal/abnormal. Lab Interpretation (test code = 98919-9) Normal [facility] [id number] 21:24:00* Test Item Value Reference Range Interpretation Comme nts POCT PREG (test code = 1605) Negative On board controls acceptable with C Line (test code = 3574) Yes POCT PREG LOT # (test code = 3575) POCT PREG TEST DATE ( test code = 3576) [facility] [id number] 21:24:00* Test Item Value Reference Range Interpretation Comme nts POCT PREG (test code = 1605) Negative On board controls acceptable with C Line (test code = 3574) Yes POCT PREG LOT # (test code = 3575) POCT PREG TEST DATE ( test code = 3576) [facility] [id number] 22:25:00* Test Item Value Reference Range Interpretation Comme nts POCT PREG (test code = 1605) Negative On board controls acceptable with C Line (test code = 3574) Yes POCT PREG LOT # (test code = 3575) POCT PREG TEST DATE ( test code = 3576) [facility] [id number] 22:25:00* Test Item Value Reference Range Interpretation Comme nts POCT PREG (test code = 1605) Negative On board controls acceptable with C Line (test code = 3574) Yes POCT PREG LOT # (test code = 3575) POCT PREG TEST DATE ( test code = 3576) [facility] [id number] 19:40:00* Test Item Value Reference Range Interpretation Comme nts POCT PREG (test code = 1605) Negative On board controls acceptable with C Line (test code = 3574) Yes POCT PREG LOT # (test code = 3575) POCT PREG TEST DATE ( test code = 3576) [facility] [id number] 19:40:00* Test Item Value Reference Range Interpretation Comme nts POCT PREG (test code = 1605) Negative On board controls acceptable with C Line (test code = 3574) Yes POCT PREG LOT # (test code = 3575) POCT PREG TEST DATE ( test code = 3576) [facility] History and Physical Notes Date/Time Note Provider Source 2024-01-14 07:33:58 TRIAGE HISTORY & PHYSICAL IDENTIFYING DATA Hola Galo is 23 year old, /White, 39w0d, female with GIULIA 01/21/2024, by Last Menstrual Period. : 1999 Primary Care Physician: Simona Du CHIEF COMPLAINT Induction at 39 wks HISTORY OF PRESENT ILLNESS Hola Galo is a 23 year old female @ 39w0d +FM. No VB, LOF, or CTX. No pre-eclampsia sx or other complaints. PAST OBSTETRIC HISTORY OB History Para Term AB Living 2 1 1 0 0 1 SAB IAB Ectopic Multiple Live Births 0 0 0 0 1 # Outcome Date GA Lbr Keaton/2nd Weight Sex Delivery Anes PTL Lv 2 Current 1 Term 01/01/22 38w0d 2693 g M NORMAL [place] WENDI PAST MEDICAL HISTORY Problem list: Patient Active Problem List Diagnosis Date Noted 39 weeks gestation of 01/14/2024 Obesity (BMI 30-39.9) 01/14/2024 Uterine size-date discrepancy in third trimester 11/25/2023 Headache in 07/24/2023 Rubella non-immune status, antepartum 06/24/2023 Abnormal maternal glucose tolerance, antepartum 06/24/2023 Supervision of high-risk 06/22/2023 Multiparity 06/22/2023 History of gestational diabetes 06/22/2023 Obesity in 03/22/2018 Operations: No past surgical history on file. Past Medical History: Diagnosis Date Amenorrhea 09/09/2020 Asthma as a child Corpus luteum cyst or hematoma 03/22/2018 Screening examination for STD (sexually transmitted disease) 03/22/2018 CURRENT HEALTH STATUS Medications: Current Facility-Administered Medications Medication Dose Route Frequency Last Rate Last Admin carboprost (HEMABATE) injection 250 mcg 250 mcg Intramuscular Q2HPRN D5W-LR IV infusion 1,000 mL 1,000 mL IV Infusion TITRATE 125 mL/hr at 01/14/24 0435 1,000 mL at 01/14/24 0435 FENTanyl PF (SUBLIMAZE (PF)) injection 100 mcg 100 mcg Slow IV Push Q1HPRN 100 mcg at 01/14/24 0726 lactated ringers IV infusion 500 mL 500 mL IV Infusion PRN - SEE INSTRUCTIONS lactated ringers IV infusion 500 mL 500 mL IV Infusion PRN - SEE INSTRUCTIONS lidocaine 1% (PF) (XYLOCAINE) injection 0.3 mL 0.3 mL Infiltration PRN - SEE INSTRUCTIONS methylergonovine (METHERGINE) injection 0.2 mg 0.2 mg Intramuscular Q4HPRN miSOPROStol (CYTOTEC) quarter-tablet 25 mcg 25 mcg Oral Q2H 25 mcg at 01/14/24 0507 miSOPROStoL (CYTOTEC) tablet 200 mcg 200 mcg Rectal PRN oxytocin (PITOCIN) 30 units in NS 500 mL IV infusion 600 mL/hr IV Infusion PRN penicillin GK 3 million units in NS 50 mL IV infusion (CNR) 3 Million Units IV Piggyback Q4H ABX proMETHazine (PHENERGAN) 25 mg in NS 50 mL IV piggyback (CNR) 25 mg IV Piggyback Q4HPRN sodium citrate-citric acid (BICITRA) 500-334 mg/5 mL solution 30 mL 30 mL Oral PRE-PROCEDURE ONCE sodium citrate-citric acid (BICITRA) 500-334 mg/5 mL solution 30 mL 30 mL Oral PRE-PROCEDURE ONCE terbutaline (BRETHINE) injection 0.25 mg 0.25 mg Subcutaneous PRN tranexamic acid (CYKLOKAPRON) 1,000 mg in NaCl 0.9% (NS) 250 mL piggyback 1,000 mg IV Piggyback PRN Allergies and drug reactions: Patient has no known allergies. HOME MEDICATIONS Medications Prior to Admission Medication Sig Dispense Refill Last Dose PRENATA 29 mg iron- 1 mg per tablet TAKE 1 TABLET BY MOUTH EVERY DAY 90 tablet 3 01/13/2024 SOCIAL HISTORY Tobacco History: Social History Tobacco Use Smoking Status Former Current packs/day: 0.00 Types: Cigarettes Quit date: 2019 Years since quittin.5 Smokeless Tobacco Never Tobacco Comments on social occassion Drug History: Social History Substance and Sexual Activity Drug Use No Alcohol History: Social History Substance and Sexual Activity Alcohol Use Not Currently FAMILY HISTORY Family History Problem Relation Age of Onset [...] Grandmother Diabetes Paternal Grandfather Hypertension Paternal Grandfather REVIEW OF SYSTEMS General: negative Constitutional: negative Eyes: negative ENT/Mouth: negative Cardiovascular: negative Respiratory: negative Gastrointestinal:negative Genitourinary: negative Musculoskeletal: negative Skin/breast: negative Neurological: negative Psychiatric: negative Endocrine: negative Hemat/Lymph: negative Allergic/Immuno:none VITAL SIGNS BP: (116-134)/(61-85) Temp: [36.3 ?C (97.4 ?F)-36.8 ?C (98.2 ?F)] Temp source: Oral (01/13 0700) Pulse: [87-100] Resp: [18] SpO2: [97 %-99 %] Height: [152.4 cm (5')] Weight: [88.9 kg (196 lb)-90.2 kg (198 lb 12.8 oz)] BMI (calculated): [38.28-38.83] PHYSICAL EXAMINATIONS Gen: alert and oriented, well appearing, no distress CV: RRR, normal S1/S2, no m/r/g Resp: normal work of breathing, lungs CTAB Abd: gravid, soft, NTTP Ext: no calf tenderness or edema : SVE cl/th/high REVIEW OF LABORATORY, PATHOLOGY, AND RADIOLOGY DATA Lab results: Type & Screen HIV Hep B Syphilis Chlamydia ABO & RH Date Value Ref Range Status 01/13/2024 O POSITIVE Final No results found for: "HIVMULTIPLEX" No components found for: "HBSHBSAG" Syphilis IgG/IgM Date Value Ref Range Status 06/22/2023 Non-reactive Non-reactive Final C. trachomatis Nucleic Acid Date Value Ref Range Status 12/30/2023 Negative Negative Final IAT Date Value Ref Range Status 01/13/2024 Negative Final Varicella Rubella Glucose Group B Strep CBC VZV IgG antibody Date Value Ref Range Status 06/22/2023 Positive Negative Final Rubella screen IgG Date Value Ref Range Status 06/22/2023 Negative Negative Final GLUC 1 HR Date Value Ref Range Status 10/21/2023 170 120 - 170 mg/dL Final No results found for: "CGBS" HGB Date Value Ref Range Status 01/14/2024 12.9 11.6 - 15.0 g/dL Final HCT Date Value Ref Range Status 01/14/2024 37.9 35.7 - 45.2 % Final PLT Date Value Ref Range Status 01/14/2024 308 166 - 358 10*3/?L Final Active Hospital Problems Diagnosis Date Noted 39 weeks gestation of 01/14/2024 Obesity (BMI 30-39.9) 01/14/2024 Resolved Hospital Problems No resolved problems to display. Present on Admission: 39 weeks gestation of Placenta Accreta Screening Prior ? : No Prior Uterine Surgery?: No Placenta low lying/previa in current ? : No Screening outcome: A positive screening outcome indicates a history of prior delivery or prior uterine surgery, AND the presence of either a placenta low lying/previa or ultrasound suspicion of PASD in the current . Negative screening. ASSESSMENT AND PLAN Hola Galo is a 23 year old female @ 39w0d here for an elective induction. Induction - FB in placed. Misoprostol for cervical ripening. - Cephalic presentation confirmed - GBS positive - EFW 6 lbs on 12/23/23 Body mass index is 38.83 kg/m?. PVT of Dr. Hsu, please see OB Summary for more details Kvng Hsu MD 01/14/2024 7:[address] [facility] Procedure Notes Date/Time Note Provider Source 2024-01-14 11:01:00 Associated Order(s): Central Neuraxial Block Central Neuraxial Block Date/Time: 01/14/2024 10:30 AM Performed by: Delia Gilmore III, CRNA Authorized by: Felicia Lawton MD End Time: 01/14/2024 10:50 AM Reason for Block: OB request, Patient request, Labor analgesia, Surgical anesthesia and Post-op pain management Staff: Resident/TELEPHONE INFORMATION CLERK: Delia Gilmore III, CRNA Performed by: resident/TELEPHONE INFORMATION CLERK Preanesthetic Checklist: patient identified, IV checked, risks and benefits explained, monitors and equipment checked, timeout performed, pre-op evaluation, site marked and anesthesia consent Procedure: Type of Neuraxial: Epidural Epidural Description: 1st attempt Sterility Prep cap, drape, gloves, hand hygiene and mask Sedation Level no sedation Patient Position: sitting Prep: Betadine and patient draped Monitoring: heart rate, continuous pulse ox, heart rate / toco and NIBP Location: lumbar (1-5) Lumbar: L3-L4 Approach: midline Technique: FAUSTO air and catheter Guidance with: landmark technique} Epidural/Spinal Foster and/or Catheter: Epidural/Spinal Kit: BBventura Needle Type: Tuohy Needle Gauge: 17 G Needle Length: 3.5 in (8.89 cm) Needle Insertion Depth: 8 Catheter Type: multiport Catheter Size: 19 G Catheter at Skin Depth: 14 Number of Attempts: 1 Test Dose: lidocaine 1.5% with epinephrine 1-to-200,000 Dose: 3 cc Catheter Securement Method: surgical tape and Tegaderm Assessment: Sensory Level: above T10 Block Outcome: patient tolerated procedure well Procedure Assessment: patient tolerated procedure well with no complications Notes: Smooth and atraumatic, (+) Local, (+) STF NACR-NURSE ORTHODONTIST VICE PRESIDENT,CERTIFIED REGISTERED NURSE ORTHODONTIST VICE PRESIDENT [facility] 2024-01-14 07:42:40 Procedure(s): INSERT CERVICAL DILATOR Pre-Procedure Diagnose(s): 39 weeks gestation of Post-Procedure Diagnose(s): 39 weeks gestation of [place] bulb inserted in a sterile manner and inflated with 60 cc of normal saline without complications. Patient tolerated the procedure well. Kvng Hsu MD #[id number] 01/14/2024 7:[address] [facility] Notes Date/Time Note Provider Source 2024-07-10 09:30:00 Images from the original note were not included. Venipuncture collection performed by clean technique on the right anticubitus. Total of 1 attempts were made. Slight pressure and a bandage/dressing were applied to the site(s). The patient experienced no complications. The following specimens were processed according to instructions and sent to [facility] laboratories per lab order on 07/10/2024: LT BLUE SST 2 RED LAV 2 PPT DK GREEN (LiHep) DK GREEN (SodH) ERICKSON DK BLUE (K2) DK BLUE (S) ACD Blood Culture NIPT/NTD [facility] 2024-07-05 14:16:00 Received refill request via fax from [facility] pharmacy for ibuprofen 800mg tablets. Refill request denied. Carloz Guillen RN 07/05/2024 2:16 PM [employer] Carloz Guillen RN [facility] 2024-06-28 16:17:04 Received PA request from [facility]. Good RX: $13.00. Name and verified. Pt advised that insurance did not cover medication and that she an use the Good Rx card. Verbalized understanding. EVELIN MORGAN RN 06/28/2024 4:17 PM [facility] Evelin Morgan RN [facility] 2024-06-26 14:15:00 Images from the original note were not included. Venipuncture collection performed by clean technique on the left anticubitus. Total of 1 attempts were made. Slight pressure and a bandage/dressing were applied to the site(s). The patient experienced no complications. The following specimens were processed according to instructions and sent to [facility] laboratories per lab order on 06/26/2024 : LT BLUE SST 2 RED 1 LAV PPT DK GREEN (LiHep) DK GREEN (SodH) ERICKSON DK BLUE (K2) DK BLUE (S) ACD Blood Culture NIPT/NTD [facility] 2024-01-15 18:35:13 Problem: Complications of hemorrhage (risk or actual) Goal: Absence of active bleeding 01/15/20241833 by Phyllis Marie RN Outcome: Adequate for discharge 01/15/2024 1738 by Phyllis Marie RN Outcome: Progressing as expected Goal: Absence of complications 01/15/2024 183 by Phyllis Marie RN Outcome: Adequate for discharge 01/15/2024 1738 by Phyllis Marie RN Outcome: Progressing as expected Problem: Discharge Planning - Goal: Adequate for discharge 01/15/2024 1834 by Phyllis Marie RN Outcome: Adequate for discharge 01/15/2024 1738 by Phyllis Marie RN Outcome: Progressing as expected Goal: Mood stable 01/15/2024 183 by Phyllis Marie RN Outcome: Adequate for discharge 01/15/2024 173 by Phyllis Marie RN Outcome: Progressing as expected Problem: Complications of preeclampsia/eclampsia (risk or actual) Goal: Absence of seizure activity 01/15/2024 183 by Phyllis Marie RN Outcome: Adequate for discharge 01/15/2024 1738 by Phyllis Marie RN Outcome: Progressing as expected Goal: Absence of signs and symptoms of preeclampsia 01/15/2024 183 by Phyllis Marie RN Outcome: Adequate for discharge 01/15/2024 173 by Phyllis Marie RN Outcome: Progressing as expected Problem: Breast-feeding - Ineffective Goal: Effective breast-feeding 01/15/20241833 by Phyllis Marie RN Outcome: Adequate for discharge Note: Bottle feeding formula 01/15/2024 1738 by Phyllis Marie RN Outcome: Not progressing as expected Note: Mother request to formula feed. Phyllis Marie RN [facility] 2024-01-15 17:39:12 Problem: Complications of hemorrhage (risk or actual) Goal: Absence of active bleeding Outcome: Progressing as expected Goal: Absence of complications Outcome: Progressing as expected Problem: Discharge Planning - Goal: Adequate for discharge Outcome: Progressing as expected Goal: Mood stable Outcome: Progressing as expected Problem: Complications of preeclampsia/eclampsia (risk or actual) Goal: Absence of seizure activity Outcome: Progressing as expected Goal: Absence of signs and symptoms of preeclampsia Outcome: Progressing as expected Problem: Breast-feeding - Ineffective Goal: Effective breast-feeding Outcome: Not progressing as expected Note: Mother request to formula feed. [facility] 2024-01-14 19:55:12 Patient: Hola Galo Procedure Summary Date: 01/14/24 Room / Location: Anesthesia Start: 1029 Anesthesia Stop: 1954 Procedure: CENTRAL NEURAXIAL BLOCK Diagnosis: Scheduled Providers: Responsible Provider: Felicia Lawton MD Anesthesia Type: Epidural ASA Status: 2 Anesthesia Type: Epidural Last vitals BP 127/74 (01/14/241899) Temp 37.4 ?C (99.3 ?F) (01/14/241899) Pulse 95 (01/14/241899) Resp 16 (01/14/241899) SpO2 100 % (01/14/241899) There were no known notable events for this encounter. Anesthesia Post Evaluation Patient location during evaluation: bedside Patient participation: complete - patient participated Level of consciousness: awake and alert Pain management: satisfactory to patient Airway patency: patent Cardiovascular status: acceptable and blood pressure returned to baseline Respiratory status: acceptable Hydration status: acceptable Comments: Anesthesia DARLENE Post Operative Faculty Note Date of service: 01/14/2024 Patient is s/p labor epidural placement and removal. Patient examined, patient awake. Patient participation in post anesthesia evaluation: Block not fully resolved, as expected. Patient participated otherwise. Patient advised about fall precautions. Vital Signs: BP 127/74 | Pulse 95 | Temp 37.4 ?C (99.3 ?F) (Oral) | Resp 16 | Ht 1.524 m (5') | Wt 90.2 kg (198 lb 12.8 oz) | LMP 04/16/2023 (Approximate) | SpO2 100% | Unknown | BMI 38.83 kg/m? Pain: Scale used: 0 - 10 Ratin Nausea and vomiting: Not present. Post operative/post procedure hydration status: Euvolemic. Post-operative course: Block resolving appropriately, and patient advised about fall precautions as noted above. Complications: No apparent complications Felicia Lawton MD 01/14/2024 19:55 AN-ANESTHESIOLOGY ANESTHESIOLOGIST [facility] 2024-01-14 19:37:05 Problem: Complications of hemorrhage (risk or actual) Goal: Absence of active bleeding Outcome: Progressing as expected Goal: Absence of complications Outcome: Progressing as expected Problem: Discharge Planning - Goal: Adequate for discharge Outcome: Progressing as expected Goal: Mood stable Outcome: Progressing as expected Problem: Complications of preeclampsia/eclampsia (risk or actual) Goal: Absence of seizure activity Outcome: Progressing as expected Goal: Absence of signs and symptoms of preeclampsia Outcome: Progressing as expected Vazquez Curtis RN [facility] 2024-01-14 18:47:55 Problem: Intrapartum process (including labor pain) Goal: Absence of or reduction of complications of labor 01/14/20241846 by Deanne Perry RN Outcome: Resolved 01/14/2024737 by Deanne Perry RN Outcome: Progressing as expected Goal: Able to cope with pain 01/14/20241846 by Deanne Perry RN Outcome: Resolved 01/14/2024 07 by Deanne Perry RN Outcome: Progressing as expected Goal: Adequate to move to next level of care 01/14/20241846 by Deanne Perry RN Outcome: Resolved 01/14/2024 0738 by Deanne Perry RN Outcome: Progressing as expected Goal: Reduction in pain sensation 01/14/20241846 by Deanne Perry RN Outcome: Resolved 01/14/2024737 by Deanne Perry RN Outcome: Progressing as expected Problem: Pain Goal: Control of pain at or below patient's documented comfort goal 01/14/20241846 by Deanne Perry RN Outcome: Resolved 01/14/2024737 by Deanne Perry RN Outcome: Progressing as expected Goal: Reduction in pain sensation 01/14/20241846 by Deanne Perry RN Outcome: Resolved 01/14/2024737 by Deanne Perry RN Outcome: Progressing as expected Problem: Bleeding, Risk of Goal: Absence of impaired coagulation signs and symptoms 01/14/20241846 by Deanne Perry RN Outcome: Resolved 01/14/2024737 by Deanne Perry RN Outcome: Progressing as expected Goal: Absence of active bleeding 01/14/20241846 by Deanne Perry RN Outcome: Resolved 01/14/2024737 by Deanne Perry RN Outcome: Progressing as expected Problem: Discharge Planning - Goal: Adequate for discharge Outcome: Progressing as expected Goal: Mood stable Outcome: Progressing as expected Problem: Complications of preeclampsia/eclampsia (risk or actual) Goal: Absence of seizure activity Outcome: Progressing as expected Goal: Absence of signs and symptoms of preeclampsia Outcome: Progressing as expected Deanne Perry RN [facility] 2024-01-14 18:47:12 Problem: Intrapartum process (including labor pain) Goal: Absence of or reduction of complications of labor 01/14/20241846 by Deanne Perry RN Outcome: Resolved 01/14/2024737 by Deanne Perry RN Outcome: Progressing as expected Goal: Able to cope with pain 01/14/20241846 by Deanne Perry RN Outcome: Resolved 01/14/2024737 by Deanne Perry RN Outcome: Progressing as expected Goal: Adequate to move to next level of care 01/14/20241846 by Deanne Perry RN Outcome: Resolved 01/14/2024737 by Deanne Perry RN Outcome: Progressing as expected Goal: Reduction in pain sensation 01/14/20241846 by Deanne Perry RN Outcome: Resolved 01/14/2024737 by Deanne Perry RN Outcome: Progressing as expected Problem: Pain Goal: Control of pain at or below patient's documented comfort goal 01/14/20241846 by Deanne Perry RN Outcome: Resolved 01/14/2024737 by Deanne Perry RN Outcome: Progressing as expected Goal: Reduction in pain sensation 01/14/20241846 by Deanne Perry RN Outcome: Resolved 01/14/2024737 by Deanne Prery RN Outcome: Progressing as expected Problem: Pain Goal: Control of pain at or below patient's documented comfort goal 01/14/20241846 by Deanne Perry RN Outcome: Resolved 01/14/2024737 by Deanne Perry RN Outcome: Progressing as expected Goal: Reduction in pain sensation 01/14/20241846 by Deanne Perry RN Outcome: Resolved 01/14/2024737 by Deanne Perry RN Outcome: Progressing as expected [facility] 2024-01-14 11:02:25 Name/ MRN / Age / Gender: Hola Galo, [id number] 23 year old female BMI: Estimated body mass index is 38.83 kg/m? as calculated from the following: Height as of this encounter: 1.524 m (5'). Weight as of this encounter: 90.2 kg (198 lb 12.8 oz). Allergies: Patient has no known allergies. Last Vitals: BP Readings from Last 1 Encounters: 01/14/24 117/70 Pulse Readings from Last 1 Encounters: 01/14/24 75 SpO2 Readings from Last 1 Encounters: 01/14/24 97% Date of Surgery: 01/14/2024 Surgeon: * No surgeons listed * Procedure: CENTRAL NEURAXIAL BLOCK OR Location: [place] [facility] OUT OF OR - OR LOCATION Anesthesia Preop Eval (physical exam) Anesthesia Preop: [id number] NPO Status Verified Clear Liquids: > 2 Hours PONV Risk Factors: female and non-smoker Anesthesia History Anesthesia History Negative Previous Anesthetics/Airways Cardiovascular Negative Cardiac ROS Pulmonary Negative Pulmonary ROS Neuro/Musculoskeletal (+) Obesity GI/Hepatic Negative GI/Hepatic ROS Hematology Negative Hematology ROS Renal Negative Renal ROS Skin (+) Current IV access and 18g Endo/Other Negative Endo/Other ROS Other PRODUCT INTRODUCTION MANAGER P: 1 Pediatric Preoperative Medication Instructions Continue taking all prescribed medications except: HOSEA inhibitors, ARBs, diuretics, all oral diabetes medications Anticoagulant Therapy: Defer to surgeons Insulin: Take 1/2 dose the night prior to surgery. Hold on DOS. Phentermine: Alert [facility] anesthesiologist SGLT2 Inhibitors: "gliflozins" to be held for 3 days prior to elective surgeries GLP1 Agonosit: stop 7 days prior to surgery MAC Cases: Continue taking HOSEA inhibitors and ARBs ASA Classification ASA: 2 Labs: Chemistry - CBC 01/14/2024 - - - - 11.04 12.9 308 - - - 37.9 eGFR: - Date: - ANC: 7.16 (H) Date: 01/14/2024 LFTs - Coags AST: - AP: - Prot: - Ca: - PT: - Date: - ALT: - T Van: - Alb: - PTT: - Date: - PO4: - Date: - INR: - Date: - Cardiac Endocrine & other pBNP: - Date: - A1C: 5.2 Date: 10/18/2023 Trop I: - Date: - POCT A1C: - Date: - CK: - Date: - TSH: - Date: - CKMB: - Date: - FT4: - Date: - LDL: - Date: - Lact: - Date: - Procal: - Date: - Respiratory -|-|-|-|- D-dimer: - ABG Date: - Date: - Miscellaneous Type and Screen: O Positive Antibody: Negative Date: 01/14/2024 POCT : Positive Date: 06/22/2023 Current Medications: No outpatient medications have been marked as taking for the 01/14/24 encounter (Hospital Encounter). Previous Surgeries: Past Surgical History: Procedure Laterality Date INSERT CERVICAL DILATOR 01/14/2024 Anesthesia Physical Exam General alert and oriented x 3 Neuro/Psych neurological Dental no notable dental hx Abdominal (+) gravid Airway Mallampati score:II TM distance:< 5 cm NECK: short Neck ROM: full Mouth opening:normal Extremity Normal extremity Pulmonary pulmonary exam normal Other Cardiovascular cardiovascular exam normalRhythm:regular Rate: normal Anesthesia Plan ASA Status: 2 Plan discussed during pre-op evaluation: General, Epidural, Spinal and CSE Anesthetic plan on DOS: Epidural Anesthesia plan discussed with: patient or compliance representative Post-Operative Analgesia: routine analgesia & antiemetics Recovery Plan: LDR Additional comments: [facility] 2024-01-14 09:07:57 Name/ MRN / Age / Gender: Hola Galo, [id number] 23 year old female BMI: Estimated body mass index is 38.83 kg/m? as calculated from the following: Height as of this encounter: 1.524 m (5'). Weight as of this encounter: 90.2 kg (198 lb 12.8 oz). Allergies: Patient has no known allergies. Last Vitals: BP Readings from Last 1 Encounters: 01/14/24 114/76 Pulse Readings from Last 1 Encounters: 01/14/24 96 SpO2 Readings from Last 1 Encounters: 01/14/24 98% Date of Surgery: Surgeon: * Surgery not found * Procedure: LABOR CONSULT OR Location: * No surgery found * Anesthesia Preop Eval (physical exam) Anesthesia Preop: [id number] NPO Status Verified Clear Liquids: > 2 Hours PONV Risk Factors: female and non-smoker Anesthesia History Anesthesia History Negative Previous Anesthetics/Airways Cardiovascular Negative Cardiac ROS Pulmonary Negative Pulmonary ROS Neuro/Musculoskeletal (+) Obesity GI/Hepatic Negative GI/Hepatic ROS Hematology Negative Hematology ROS Renal Negative Renal ROS Skin (+) Current IV access and 18g Endo/Other Negative Endo/Other ROS Other PRODUCT INTRODUCTION MANAGER P: 1 Pediatric Preoperative Medication Instructions Continue taking all prescribed medications except: HOSEA inhibitors, ARBs, diuretics, all oral diabetes medications Anticoagulant Therapy: Defer to surgeons Insulin: Take 1/2 dose the night prior to surgery. Hold on DOS. Phentermine: Alert [facility] anesthesiologist SGLT2 Inhibitors: "gliflozins" to be held for 3 days prior to elective surgeries GLP1 Agonosit: stop 7 days prior to surgery MAC Cases: Continue taking HOSEA inhibitors and ARBs ASA Classification ASA: 2 Labs: Chemistry - CBC 01/14/2024 - - - - 11.04 12.9 308 - - - 37.9 eGFR: - Date: - ANC: 7.16 (H) Date: 01/14/2024 LFTs - Coags AST: - AP: - Prot: - Ca: - PT: - Date: - ALT: - T Van: - Alb: - PTT: - Date: - PO4: - Date: - INR: - Date: - Cardiac Endocrine & other pBNP: - Date: - A1C: 5.2 Date: 10/18/2023 Trop I: - Date: - POCT A1C: - Date: - CK: - Date: - TSH: - Date: - CKMB: - Date: - FT4: - Date: - LDL: - Date: - Lact: - Date: - Procal: - Date: - Respiratory -|-|-|-|- D-dimer: - ABG Date: - Date: - Miscellaneous Type and Screen: O Positive Antibody: Negative Date: 01/14/2024 POCT : Positive Date: 06/22/2023 Current Medications: No outpatient medications have been marked as taking for the 01/14/24 encounter (Hospital Encounter). Previous Surgeries: Past Surgical History: Procedure Laterality Date INSERT CERVICAL DILATOR 01/14/2024 Anesthesia Physical Exam General no apparent distress and alert and oriented x 3 Neuro/Psych Dental Abdominal (+) obesity and gravid Airway Mallampati score:III TM distance:> 5 cm Neck ROM: full Mouth opening:normal Extremity Pulmonary Other Cardiovascular cardiovascular exam normal Anesthesia Plan ASA Status: 2 Plan discussed during pre-op evaluation: Epidural, Spinal and General Anesthesia plan discussed with: patient or compliance representative Post-Operative Analgesia: routine analgesia & antiemetics Recovery Plan: LDR Additional comments: AN-ANESTHESIOLOGY ANESTHESIOLOGIST [facility] 2024-01-14 07:38:20 Problem: Intrapartum process (including labor pain) Goal: Absence of or reduction of complications of labor Outcome: Progressing as expected Goal: Able to cope with pain Outcome: Progressing as expected Goal: Adequate to move to next level of care Outcome: Progressing as expected Goal: Reduction in pain sensation Outcome: Progressing as expected Problem: Pain Goal: Control of pain at or below patient's documented comfort goal Outcome: Progressing as expected Goal: Reduction in pain sensation Outcome: Progressing as expected Problem: Bleeding, Risk of Goal: Absence of impaired coagulation signs and symptoms Outcome: Progressing as expected Goal: Absence of active bleeding Outcome: Progressing as expected T [facility] 2024-01-14 04:08:14 Problem: Intrapartum process (including labor pain) Goal: Absence of or reduction of complications of labor Outcome: Progressing as expected Goal: Able to cope with pain Outcome: Progressing as expected Goal: Adequate to move to next level of care Outcome: Progressing as expected Goal: Reduction in pain sensation Outcome: Progressing as expected Problem: Pain Goal: Control of pain at or below patient's documented comfort goal Outcome: Progressing as expected Goal: Reduction in pain sensation Outcome: Progressing as expected Problem: Bleeding, Risk of Goal: Absence of impaired coagulation signs and symptoms Outcome: Progressing as expected Goal: Absence of active bleeding Outcome: Progressing as expected Sol Currie RN [facility] 2024-01-13 13:15:00 Age: [age] year old GA: 38w6d -Doing well -Irregular contractions: SVE closed/thick/high -Daily kick counts and labor precautions given -Induction scheduled for tomorrow at 39 weeks unless clinically indicated otherwise -Follow-up in 4 to 6 weeks for visit T [facility] 2024-01-13 11:15:00 Summary: Having a naural . Images from the original note were not included. Venipuncture collection performed by clean technique on the right forearm(s). Total of 1 attempts were made. Slight pressure and a bandage/dressing were applied to the site(s). The patient experienced no complications. The following specimens were processed according to instructions and sent to [facility] laboratories per lab order on 01/13/2024 : LT BLUE 2 SST 1 RED 2 LAV PPT DK GREEN (LiHep) DK GREEN (SodH) ERICKSON DK BLUE (K2) DK BLUE (S) ACD Blood Culture NIPT/NTD [facility] 2024-01-06 10:15:00 Age: [age] year old GA: 37w6d - Doing well -Patient was seen on labor and delivery on 01/02/2024 for decreased movement. Reports normal movement now. Daily kick counts discussed. -Irregular contractions: SVE cl/th/high. Labor precautions reviewed -Patient interested in induction prior to 39 weeks. Discussed no medical indication at this time. Induction at 39 wks on 01/14/24 unless clinically indicated otherwise - Daily kick counts and labor precautions given - follow-up in 1 wk for PN T [facility] 2024-01-03 10:00:00 Images from the original note were not included. Venipuncture collection performed by clean technique on the right anticubitus. Total of 1 attempts were made. Slight pressure and a bandage/dressing were applied to the site(s). The patient experienced no complications. The following specimens were processed according to instructions and sent to [facility] laboratories per lab order on 01/03/2024 : LT BLUE SST RED LAV 1 PPT DK GREEN (LiHep) DK GREEN (SodH) ERICKSON DK BLUE (K2) DK BLUE (S) ACD Blood Culture NIPT/NTD [facility] 2024-01-02 20:20:08 Pt arrives ambulatory to ED reporting decreased movement. Pt reports last time she felt baby was 3 am this morning. [address] Hsu Report called to Pat RN L&D charge phone. Janine Montano RN [facility] 2023-12-30 10:15:00 Age: [age] year old GA: 36w6d - Doing well - Vaginal discharge: asymptomatic. GC/CT and vag path collected. - vaginal pressure: SVE cl/th/high. Labor precautions reviewed - GBS positive: intrapartum antibiotics - Induction at 39 wks on 01/14/24 unless clinically indicated otherwise - Daily kick counts and labor precautions given - follow-up in 1 wk for PN [facility] 2023-12-27 09:40:13 Patient has been contacted and scheduled for this Tuesday. Roger Reeves [facility] 2023-12-27 09:28:28 Patient is stating that she is to be seen weekly now per Dr. Hsu she needs an appointment by Tuesday. Please return her call with a possible overbook. Mehreen Pena [facility] 2023-12-23 14:30:00 Age: [age] year old GA: 35w6d -Doing well without concerns - S >> D: Appropriate interval growth on 12/23/2023 ultrasound. EFW 6 pounds, 44 percentile -Desires induction at 39 weeks. Tentatively plan for 01/14/2024 unless clinically indicated otherwise This reviews what Dr. Hsu talked about at your 36 week talk: 1. Go to Labor and Delivery when your contractions are 5-7 minutes apart and you have been able to time them for an hour. If you live more than 30 minutes from the hospital, then go when they are 10 minutes apart and you have been able to time them for an hour. 2. BUT, there are 4 reasons to go to Labor and Delivery REGARDLESS of what else is happening, whether you are jai or not: 1. If your water breaks - - - it may be a gush or a constant trickle. If you are not sure, always come in to be checked. 2. Bleeding like your period. 3. If your baby's movements are less than 10 in an hour. If you are concerned this might be the case, drink a tall glass of cold fluids, lay down on your side on the couch or your bed and see how long it takes to note 10 movements - if less than 10, this needs to be evaluated immediately. 4. Contractions or Pain that is continuous. Normal labor contractions last only 45 seconds - 1 minute. cephalic presentation GC/CT and GBS obtained, CBC ordered Zika precautions reviewed Contraception PP: Nexplanon Delivery consent signed today RTC in 1 wk for PN T [facility] 2023-12-21 10:51:53 Recieved fax from [employer]. Signed and faxed back. Title 19- PP support. EVELIN MORGAN RN 12/21/2023 10:54 AM Evelin Morgan RN [facility] 2023-12-12 13:15:00 Age: [age] year old GA: 34w2d -Doing well without concerns -States that on Tuesday, she had pain from umbilicus to pelvic while driving. Pain resolved on its own after she lays down. No other associated symptoms. Continue to monitor. - S >> D: growth scan scheduled for 12/23/23 - Daily kick counts -Follow-up in 2 weeks for visit [facility] 2023-11-25 12:45:00 Age: [age] year old GA: 31w6d -Doing well without concerns - S >> D: growth scan ordered -1 hour abnormal: Hemoglobin A1c 5.2 on 10/18/2023. 3-hour within normal limits. Discussed healthy diet and exercise - Horizon neg -28-week labs serologies normal - 3rd trimester teaching done- reviewed S/S of PTL (contractions, leakage of fluid and Vaginal bleeding) and also Kick Counts. Also dicussed Bradley-Paulino, pelvic and lower back pains- expectations and differenced with S/S of PTL She plans to breast/bottle fed BC options reviewed- opted for Nexplanon [employer]: Dr. Tyler Encourage patient to bring in wishes if she has any. -Follow-up in 2 weeks for visit [facility] 2023-11-16 15:43:40 Recieved fax from [employer]. Signed and faxed back. Title 19 BP. EVELIN MORGAN RN 11/16/2023 3:43 PM Evelin Morgan RN [facility] 2023-11-14 16:04:29 Recieved fax from [employer]. Signed and faxed back. Title 19- Stockings/BP. EVELIN MORGAN RN 11/14/2023 4:04 PM Evelin Morgan RN [facility] 2023-11-14 15:00:00 Age: [age] year old GA: 30w2d PLAN 1. Supervision of high risk in third trimester See active problem list 2. 30 weeks gestation of - POCT Urinalysis w/o Specific [place]- negative for protein and glucose 3. Need for Tdap vaccination - TDAP VACCINE, >10 YRS, IM Labor precautions reviewed with patient 1. If your water breaks(gush or a constant trickle). 2. Bleeding like your period. 3. If your baby's movements are less than 10 in an hour. 4. Contractions or pain that is continuous. She verbalized understanding F/u with Dr. Hsu in 2 weeks Theodore Tubbs DNP, [employer]ER-BC 43:[address] [facility] 2023-10-21 16:33:55 Patient notified prior auth was submitted for ketoconazole cream. Will follow-up with patient once prior auth has been approved or denied. Aicha Bueno RN 10/21/2023 4:34 PM Aicha Bueno RN 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 Letty Pena [facility] 2023-10-21 07:30:00 Images from the original note were not included. 3 HR Glucose for HsuKvng MD only Venipuncture collection performed by clean technique on the left anticubitus. Total of 1 attempts were made. Slight pressure and a bandage/dressing were applied to the site(s). The patient experienced no complications. The following specimens were processed according to instructions and sent to [facility] laboratories per lab order on 10/21/2023 : LT BLUE SST 1 RED LAV PPT DK GREEN (LiHep) DK GREEN (SodH) ERICKSON DK BLUE (K2) DK BLUE (S) ACD Blood Culture NIPT/NTD [facility] 2023-10-21 07:30:00 Patient loaded with 100G Glucola at 0735. [facility] 2023-10-21 07:30:00 Images from the original note were not included. Venipuncture collection performed by clean technique on the left anticubitus. Total of 1 attempts were made. Slight pressure and a bandage/dressing were applied to the site(s). The patient experienced no complications. The following specimens were processed according to instructions and sent to [facility] laboratories per lab order on 10/21/2023 : LT BLUE SST 1 RED LAV PPT DK GREEN (LiHep) DK GREEN (SodH) ERICKSON DK BLUE (K2) DK BLUE (S) ACD Blood Culture NIPT/NTD [facility] 2023-10-21 07:30:00 Images from the original note were not included. Venipuncture collection performed by clean technique on the left anticubitus. Total of 1 attempts were made. Slight pressure and a bandage/dressing were applied to the site(s). The patient experienced no complications. The following specimens were processed according to instructions and sent to [facility] laboratories per lab order on 10/21/2023 : LT BLUE SST 1 RED LAV PPT DK GREEN (LiHep) DK GREEN (SodH) ERICKSON DK BLUE (K2) DK BLUE (S) ACD Blood Culture NIPT/NTD Hilario Sanon [facility] 2023-10-21 07:30:00 Images from the original note were not included. Venipuncture collection performed by clean technique on the right anticubitus. Total of 1 attempts were made. Slight pressure and a bandage/dressing were applied to the site(s). The patient experienced no complications. The following specimens were processed according to instructions and sent to [facility] [employer] per lab order on 10/21/2023 : LT BLUE SST 1 RED LAV PPT DK GREEN (LiHep) DK GREEN (SodH) ERICKSON DK BLUE (K2) DK BLUE (S) ACD Blood Culture NIPT/NTD [facility] 2023-10-18 08:45:00 Patient loaded with 50G Glucola. Draw time 0940. Tayla Prakash [facility] 2023-10-18 08:45:00 Images from the original note were not included. Venipuncture collection performed by clean technique on the right anticubitus. Total of 1 attempts were made. Slight pressure and a bandage/dressing were applied to the site(s). The patient experienced no complications. The following specimens were processed according to instructions and sent to [facility] laboratories per lab order on 10/18/2023 : LT BLUE SST 2 RED 1 LAV 2 PPT DK GREEN (LiHep) DK GREEN (SodH) ERICKSON DK BLUE (K2) DK BLUE (S) ACD Blood Culture NIPT/NTD Patient has been identified by and name and was provided with cup, antiseptic towelette, and clean catch instructions. 1 urine specimen(s) sent. Unpreserved 1 Urine Culture Aptima tube Other urine [facility] 2023-10-14 14:30:00 Age: [age] year old GA: 25w6d Transfer care from [facility] - 1 hr abnormal, 3 hr wnl - serologies neg, Rubella NI, VZV I, O+/IAT neg - pap neg on 07/21/22 - MsAFP neg, Panorama low risk female - Anatomy scan done on 08/29/23: No obvious abnormalities with some suboptimal views. Follow-up ultrasound on 10/06/23 showed appropriate interval growth. Yeast dermatitis - Ketoconazole and Triamcinolone ordered No complaints. Discussed do's and don'ts of , safe foods, safe medications. Reviewed Zika virus precautions. I discussed the call schedule and that I might not be the physician delivering her. I discussed I deliver my patients at [facility]. Expectations for weight gain this include 11-20 pounds. Encouraged to call if have any additional questions or concerns. Have received 2 doses of COVID vaccines. Counseled and recommend COVID booster vaccines. Received flu vaccines today Discussed about COVID-19/flu precautions. Social distancing, frequent hand washings, wearing face mask, signs/symptoms for testing and to follow CDC recommendations discussed. Discussed with patient that she can have HEALTHY support with her during her delivery (which is subject to change depends on the COVID pandemic) 28 wk labs and serologies ordered. Desires to start with 1 hr gtt. Next visit in 4 week with [employer] INST[employer]ER Follow-up in 6 wks for PN visit with Gilberto [facility] 2023-10-14 14:30:00 Addended by: SARAH HAWKINS on: 10/14/2023 02:58 PM Modules accepted: Orders [facility] 2023-10-05 16:31:13 Pt states she has had 2 episodes of light pink spotting after wiping. Pt +FM, denies leakage of fluid, contractions. Pt states she has very mild cramping. She states she had vaginal itching this morning and some discharge. Pt states she had 2-3 bottles of water today. Last sexual intercourse 3 days ago. Instructed patient to increase water intake and pelvic rest until seen by provider. Pt scheduled for tomorrow at 0845 am. Strict ED warnings given including soaking pad an hour x 2, decreased FM, contractions, or leakage of fluid. Pt verbalized understanding. MIS PENA RN 10/05/2023 4:35 PM Mis Pena RN [facility] 2023-10-05 16:06:[address] [facility] #[id number]. Topic: Clinical - Medical Advice >> Oct 05, 2023 4:03 PM Patient Assistant Research Scientist wrote: Pt is requesting a call back, states is having spotting when using the rest room. Please call [phone] (home) BRO Benavidez [facility] 2023-07-20 11:04:35 Patient stated she has a history of migraines and was on medication. Stated she started having headaches about 4 days ago and took Tylenol but did not get relief. Stated she does not want to take medication while so wants to know what she can take. Advised patient to take Tylenol around the clock with a caffeinated beverage to see if she gets relief. Also advised to make sure she is eating 3 times a day with 2 snacks in between and drinking 8 glasses of water a day. Patient rated pain 10/10, advised to be seen in ER for evaluation if pain is that severe and to keep appt tomorrow, verbalized understanding. [facility] 2023-07-20 10:14:55 Italian Hola Galo is a 22 year old female 13 wks States really strong headaches x3 days and would like to speak to nurse. [phone] (home) [facility] Kati Dill [facility]
[2024-10-27] MEDS ORDERED: ACETAMINOPHEN 500 MG TAB ONE (13:20)
[2024-10-27] MEDS ORDERED: KETOROLAC 30 MG/ML INJ ONE (13:20)
[2024-10-27] MEDS ORDERED: ONDANSETRON 4 MG (ODT) TAB ONE (13:30)
[2024-10-27 14:05] LABS: Influenza A Ag Negative; SARS-CoV-2 Antigen Rapid Res Negative (Negative)
[2024-10-27 14:09] LABS: Influenza B Ag Positive
--- NOTE | 2024-10-27 14:25 | EDPHYS ---
Physician Documentation [facility] Name: Mary Donovan Age: 23 yrs Sex: Female : 2000 Arrival Date: 10/27/2024 Time: 12:28 Bed 21 Private MD: ED Physician Chepe Cook HPI: 10/27 16:42 This 23 yrs old Female presents to ER via Ambulatory with complaints of Flu sb4 Symptoms. 16:42 patient reports body aches, cough, congestion, sore throat x 2 days. her son is sick sb4 with fever too. has been taking tylenol and motrin with minimal relief in symptoms. also endorses nausea, but no vomiting or diarrhea.. Historical: - Allergies: 12:43 No Known Allergies; ld1 - PMHx: 12:43 Asthma; ld1 - PSHx: 12:43 right hand; ld1 - Immunization history:: Adult Immunizations up to date. - Infectious Disease History:: Denies. - Social history:: Smoking status: Patient denies any tobacco usage or history of. ROS: 16:42 Cardiovascular: Negative for chest pain, palpitations, and edema, sb4 16:42 Constitutional: Positive for body aches, fatigue, malaise, 16:42 ENT: Positive for sore throat, 16:42 Respiratory: Positive for cough, 16:42 Abdomen/GI: Positive for nausea, 16:42 All other systems are negative, Exam: 16:42 Constitutional: This is a well developed, well nourished patient who is awake, alert, sb4 and in no acute distress. Head/Face: Normocephalic, atraumatic. Eyes: Extra-ocular motions intact. Periorbital areas with no swelling, redness, or edema. ENT: Mucous membranes moist. Cardiovascular: Regular rate and rhythm with a normal S1 and S2. Respiratory: No increased work of breathing, no retractions or nasal flaring. Abdomen/GI: Soft, non-tender, no distension. Skin: Warm, dry with normal turgor. Normal color with no rashes, no lesions, and no evidence of cellulitis. 16:42 ENT: TM's: are normal, no acute changes, Vital Signs: 12:42 Pulse 118; Resp 18; Temp 98.3(TE); Pulse Ox 100% on R/A; Weight 81.65 kg; Height 5 ft. ld1 1 in. ; Pain 0/10; 12:42 BP 125 / 88; ld1 14:52 BP 126 / 76; Pulse 99; Resp 18; Pulse Ox 100% on R/A; ld1 12:42 Body Mass Index 34.01 (81.65 kg, 154.94 cm) ld1 12:42 Pain Scale: Adult ld1 MDM: 12:42 Medical Screening Exam initiated sb4 16:44 Data reviewed: vital signs, nurses notes, lab test result(s), and as a result, I will sb4 discharge patient. Counseling: I had a detailed discussion with the patient and/or guardian regarding the historical points, exam findings, and any diagnostic results supporting the discharge/admit diagnosis, lab results, the need for outpatient follow up, for definitive care, to return to the emergency department if symptoms worsen or persist or if there are any questions or concerns that arise at home. 10/27 12:42 Order name: COVID-19 Ag + Flu A+B Ag; Complete Time: 14:14 ld1 10/27 12:42 Order name: Group A Streptococcus Rapid; Complete Time: 14:08 ld1 10/27 14:11 Order name: Throat Culture EDMS Administered Medications: 13:24 CANCELLED (Physician Discretion): hydrocodone-acetaminophen5 mg-325 mg 1 tabs PO once sb4 13:34 Drug: Ketorolac IM 30 mg IM once Route: IM; Site: right deltoid; ld1 13:34 Drug: Acetaminophen PO 1000 mg PO once Route: PO; ld1 13:35 Drug: Ondansetron PO 4 mg PO once Route: PO; ld1 Disposition: 10/28 13:05 Co-signature as Attending Physician, Chepe Cook MD I agree with the assessment and jessica plan of care. Disposition Summary: 10/27/24 14:24 Discharge Ordered Notes: Location: Home sb4 Problem: new sb4 Symptoms: have improved sb4 Condition: Stable sb4 Diagnosis - Influenza B sb4 Followup: sb4 - With: Emergency Department - When: As needed - Reason: Trouble breathing, Worsening of condition Discharge Instructions: - Discharge Summary Sheet sb4 - Influenza, Adult, Zapd-cs-Adpe sb4 Forms: - Patient Portal Instructions sb4 - Leadership Thank You Letter sb4 Prescriptions: - ondansetron 4 mg Oral Tablet,disintegrating - take 1 tablet ORAL route every 8 hours; 10 tablet; Refills: 0, Product sb4 Selection Permitted - Ibuprofen 800 mg Oral Tablet - take 1 tablet ORAL route every 8 hours As needed take with food; 30 tablet; sb4 Refills: 0, Product Selection Permitted Signatures: Dispatcher [employer] Chepe Smith MD MD cha Sims, Lauren, RN RN ld1 Madie Islas PA-C PA-C sb4 Corrections: (The following items were deleted from the chart) 10/27 13:24 13:24 HYDROcodone-acetaminophen PO 5 mg-325 mg 1 tabs PO once ordered. sb4 sb4
--- NOTE | 2024-10-27 14:25 | ER ---
Nurse's Notes [facility] Name: Mary Donovan Age: 23 yrs Sex: Female : 2000 Arrival Date: 10/27/2024 Time: 12:28 Bed 21 Private MD: Diagnosis: Influenza B Presentation: 10/27 12:42 Chief complaint: Patient states: Body aches, cough, headache, sore throat, fever X 1 ld1 days. Coronavirus screen: At this time, the client does not indicate any symptoms associated with coronavirus-19. Ebola Screen: No symptoms or risks identified at this time. Initial Sepsis Screen: Does the patient meet any 2 criteria? No. Patient's initial sepsis screen is negative. Does the patient have a suspected source of infection? No. Patient's initial sepsis screen is negative. Risk Assessment: Do you want to hurt yourself or someone else? Patient reports no desire to harm self or others. Onset of symptoms was October 27, 2024. 12:42 Method Of Arrival: Ambulatory ld1 12:42 Acuity: JOSE 3 ld1 Triage Assessment: 12:43 General: Appears in no apparent distress. comfortable, Behavior is calm, cooperative, ld1 appropriate for age. Pain: Denies pain. EENT: No deficits noted. No signs and/or symptoms were reported regarding the EENT system. Neuro: Level of Consciousness is awake, alert, obeys commands, Oriented to person, place, time, situation. Cardiovascular: Capillary refill < 3 seconds Patient's skin is warm and dry. Respiratory: Airway is patent Respiratory effort is even, unlabored. GI: Abdomen is round non-distended. : No signs and/or symptoms were reported regarding the genitourinary system. Derm: No signs and/or symptoms reported regarding the dermatologic system. Musculoskeletal: No signs and/or symptoms reported regarding the musculoskeletal system. Historical: - Allergies: 12:43 No Known Allergies; ld1 - PMHx: 12:43 Asthma; ld1 - PSHx: 12:43 right hand; ld1 - Immunization history:: Adult Immunizations up to date. - Infectious Disease History:: Denies. - Social history:: Smoking status: Patient denies any tobacco usage or history of. Screenin:53 [facility] ED Fall Risk Assessment (Adult) History of falling in the last 3 months, ld1 including since admission No falls in past 3 months (0 pts) Confusion or Disorientation No (0 pts) Intoxicated or Sedated No (0 pts) Impaired Gait No (0 pts) Mobility Assist Device Used No (0 pt) Altered Elimination No (0 pt) Score/Fall Risk Level 0 - 2 = Low Risk Oriented to surroundings, Hourly rounding (assess needs \T\ fall precautionary measures) done. Abuse screen: Denies threats or abuse. Denies injuries from another. Nutritional screening: No deficits noted. Tuberculosis screening: No symptoms or risk factors identified. Assessment: 14:52 Reassessment: See triage assessment. ld1 Vital Signs: 12:42 Pulse 118; Resp 18; Temp 98.3(TE); Pulse Ox 100% on R/A; Weight 81.65 kg; Height 5 ft. ld1 1 in. ; Pain 0/10; 12:42 BP 125 / 88; ld1 14:52 BP 126 / 76; Pulse 99; Resp 18; Pulse Ox 100% on R/A; ld1 12:42 Body Mass Index 34.01 (81.65 kg, 154.94 cm) ld1 12:42 Pain Scale: Adult ld1 ED Course: 12:32 Patient arrived in ED. im 12:32 Madie Islas PA-C is PHCP. sb4 12:32 Chepe Cook MD is Attending Physician. sb4 12:43 Triage completed. ld1 12:43 Arm band placed on right wrist. ld1 13:34 Mandi Liu, TORRES is Primary Nurse. ld1 14:53 Patient has correct armband on for positive identification. Placed in gown. Bed in low ld1 position. Call light in reach. Side rails up X2. color television console monitor on. Pulse ox on. NIBP on. Door closed. Noise minimized. 14:53 No provider procedures requiring assistance completed. Patient did not have IV access ld1 during this emergency room visit. Administered Medications: 13:24 CANCELLED (Physician Discretion): hydrocodone-acetaminophen5 mg-325 mg 1 tabs PO once sb4 13:34 Drug: Ketorolac IM 30 mg IM once Route: IM; Site: right deltoid; ld1 13:34 Drug: Acetaminophen PO 1000 mg PO once Route: PO; ld1 13:35 Drug: Ondansetron PO 4 mg PO once Route: PO; ld1 Medication: 14:53 VIS not applicable for this client. ld1 Outcome: 14:24 Discharge ordered by . sb4 14:53 Discharged to home ambulatory, ld1 14:53 Condition: stable 14:53 Discharge instructions given to patient, Instructed on discharge instructions, follow up and referral plans. medication usage, Demonstrated understanding of instructions, follow-up care, medications, Prescriptions given X 2, 14:54 Patient left the ED. ld1 Signatures: Mandi Liu RN RN ld1 Madie Islas, PA-C PA-C sb4 Asha Dick
[2024-10-27 15:17] VITALS: TEMP 98.3; O2SAT 100
[2024-10-27 15:18] VITALS: BP 126/76
== END 2024-10-27 14:54 | disposition home or self-care (01) ==
LOC: ER 12:28
DX: J10.1 Influenza due to other identified influenza virus with other respiratory manifestations (principal); Z11.52 Encounter for screening for COVID-19
CPT/HCPCS: 87070; 36415; 87428; Q0162; 96372; 99284